=== PATIENT | female | born 1940 | race Caucasian/White ===

== ENCOUNTER 2022-08-24 09:10 | Inpatient (IN) | payer MEDICARE, OTHER, SELFPAY ==
[2022-08-24] VITALS (18 sets, daily range): BP systolic 102–178; BP diastolic 77–99; PULSE 98–127; RESP 17–24; TEMP 36.4–36.9; O2SAT 91–96; BMI 26.2; BMI 26.6
--- NOTE | 2022-08-24 09:44 | EKG12_ITS ---
Test Reason : SOB Blood Pressure : / mmHG Vent. Rate : 120 BPM Atrial Rate : 120 BPM P-R Int : 162 ms QRS Dur : 058 ms QT Int : 306 ms P-R-T Axes : 082 085 081 degrees QTc Int : 432 ms Somatic/Motion Artifact Sinus tachycardia Low voltage QRS Septal infarct , age undetermined, cannot be excluded Abnormal ECG Confirmed by DEVAN JIMENES, [place] ([id number]), editorial specialist MIYA MALCOLM ([id number]) on 08/26/2022 9:20:13 AM Referred By: Confirmed By:CHINA HARTMAN MD
[2022-08-24] MEDS: Albuterol 2.5 MG/3 ML VIAL.NEB. INHALATION (09:51)
[2022-08-24] MEDS: Ipratropium/Albuterol Sulfate 3 ML AMPUL.NEB INHALATION ×3 (09:51→23:47)
[2022-08-24 10:03] LABS: Absolute Lymphocyte Count 1.06 X10^3/uL (0.83-4.51); Absolute Neutrophil Count 5.2 X10^3/uL (2.0-7.7); Basophil# 0.03 X10^3/uL; Basophil% 0.4 % (0-1); Eosinophil# 0.23 X10^3/uL; Eosinophils% 3.2 % (0-5); Hematocrit 45.9 % (37-47); Hemoglobin 15.1 g/dL (12.0-15.0); Lymphocyte # 1.06 X10^3/ul (0.83-4.51); Lymphocyte % 14.7 % (19-41); Mean Corp Hgb Conc 32.9 g/dL (32-36); Mean Corpuscular Hgb 29.9 pg (27.0-32.0); Mean Corpuscular Volume 90.9 fL (81-99); Monocyte# 0.71 X10^3/uL; Monocyte% 9.8 % (0-10); NRBC Flagged by Analyzer 0 % (0-5); Neutrophil # 5.15 X10^3/uL (2.7-7.7); Neutrophil % 71.5 % (47-70); Platelet Count 149 K/mm3 (150-450); RBC Distribution Width CV 13.2 % (11.6-14.6); RBC Distribution Width SD 44.1 fl (35.1-43.9); Red Blood Count 5.05 M/mm3 (4.2-5.4); White Blood Count 7.2 K/mm3 (4.4-11.0)
--- NOTE | 2022-08-24 10:15 | RAD_ITS ---
HISTORY: dyspnea. TECHNIQUE: XR Chest 1 View. COMPARISON: None. FINDINGS: CARDIOMEDIASTINAL BORDERS: Cardiac silhouette within normal limits in size. Mediastinal contour unremarkable. LUNGS: Radiographically clear. Upper lobe lucency suggesting COPD. PLEURA: No pleural effusion or pneumothorax seen. OSSEOUS STRUCTURES: Mild thoracic dextrocurvature. RAD/Chest 1 View (Portable) IMPRESSION: No acute cardiopulmonary process identified. Electronically Signed: Nicole Holland MD at 10:24 EST ,
[2022-08-24 10:19] LABS: Partial Thromboplast Time 30.4 Seconds (24.1-36.2)
[2022-08-24 10:21] LABS: AST(SGOT) 19 U/L (15-37); Alanine Aminotransfer ALT/SGPT 26 U/L (13-56); Albumin, Serum 3.7 g/dL (3.2-5.0); Alkaline Phosphatase 61 U/L (45-117); Anion Gap 10 (5-15); BUN 13 mg/dL (7-18); BUN/Creat Ratio 18.8 RATIO (10-20); Chloride 102 mmol/L (98-107); Creatinine, Serum 0.69 mg/dL (0.55-1.02); EST Glomerular Filtration Rate 87 mL/min (>60); Est Glom Filt Rate - Afr Amer 105 mL/min (>60); Estimated Creatinine Clearance 40.38 ml/min; Globulin 3.6 g/dL (2.2-4.2); Glucose 165 mg/dL (74-106); Potassium 4.1 mmol/L (3.5-5.1); Protein, Total 7.3 g/dL (6.4-8.2); Sodium Level 139 mmol/L (136-145); Troponin-I HS 5 pg/mL (3.0-54.0)
[2022-08-24 10:36] LABS: Bacteria 0 SEEN /hpf (None Seen); Mucous, Urine 0 SEEN /hpf (<or=2+); Red Blood Cells-Urine 0 SEEN /hpf (0-5); Squamous Epithelial Cells - UA 0 SEEN /hpf (5-10); White Blood Cells 0 SEEN /hpf (0-5)
[2022-08-24 10:38] LABS: Color, Urine Yellow (Yellow); Glucose, Dipstick Normal (Normal); Ketone-Dipstick Negative (Negative); Leukocyte Esterase-Dipstick Negative /ul (Negative); Nitrite-Dipstick Negative (Negative); Occult Blood-Urine Negative /ul (Negative); Protein-Dipstick 15 mg/dl (Negative); Urine Bilirubin Dipstick Negative (Negative); Urine Clarity Clear (Clear); Urine Urobilinogen Normal (Normal)
[2022-08-24 10:41] LABS: Lactic Acid 1.4 mmol/L (0.4-1.9)
[2022-08-24 11:10] LABS: D-Dimer Quantitative (DVT/PE) 0.83 FEU/ug/m (0.27-0.49)
--- NOTE | 2022-08-24 11:13 | CT_ITS ---
STUDY: CTA CHEST REASON FOR EXAM: Female, 81 years old. Hypoxic respiratory failure RADIATION DOSAGE (If Supplied By Facility): CTDIvol = ( 9.54 ) mGy, DLP = ( 414.63 ) mGycm TECHNIQUE: The examination was performed with the intravenous administration of IV 100mL Isovue-370. Post-processing of the angiographic images was performed, with multiplanar reformation and 3D reconstruction. Individualized dose optimization techniques were used for this CT. COMPARISON: Comparison is made with prior chest radiograph done earlier today. FINDINGS: Normal enhancement of the main pulmonary artery and right and left pulmonary arteries. Normal enhancement of the bilateral peripheral pulmonary arteries. There is no demonstrated pulmonary embolism. Normal thoracic aorta and visualized great vessels. There is no demonstrated aortic dissection. Normal heart and pericardium. There are visualized mediastinal lymph nodes, which are within normal size limits, and with normal morphology. Normal hilar regions. Normal visualized trachea and bronchi. Hyperinflation. Bronchiectasis in the lower lobes with evidence of bibasilar scarring more prominent on the right side. Emphysematous changes more pronounced in the upper lobes. Focal nodular infiltrate in the peripheral lateral aspect of the left lower lobe best seen on axial image #128 and coronal image #176. Normal pleura. Normal chest wall structures. There are degenerative changes of thoracic spine. Gallstones. There is a 1.5 cm x 1.4 cm hypodense nodule in the left adrenal gland suggestive of a small left adrenal adenoma. CT/CTA Chest W/WO Contrast IMPRESSION: No evidence of pulmonary embolism. Hyperinflation with scarring and bronchiectasis. Electronically Signed: Nghia Atkins MD at 12:21 EST ,
--- NOTE | 2022-08-24 11:16 | EDS_ITS ---
HPI HPI - URI History of Present Illness Chief Complaint: Shortness of Breath Narrative Narrative: 81-year-old female with cough, fever, chills x3 days COPD. She has an albuterol inhaler at home but does not seem to be helping. She was seen in urgent care where her pulse ox was low at 88. On arrival today it was 87 on room air. She does not typically wear oxygen. She does feel as if she is wheezing. She denies chest pain. She is not had any nausea or vomiting. No diarrhea or constipation. ROS ROS ED Constitutional Constitutional ED: Reports chills and fever(s) Eyes Eyes: Denies change in vision or diplopia ENT ENT ED: Reports rhinorrhea Cardiovascular Cardiovascular: Denies chest pain Respiratory/Chest Respiratory/Chest: Reports cough, dyspnea and dyspnea on exertion Gastrointestinal Gastrointestinal: Denies abdominal pain, nausea or vomiting Genitourinary Genitourinary ED: Denies dysuria or hematuria Musculoskeletal Musculoskeletal: Reports myalgias; Denies arthralgias Integumentary Denies abscess or Abrasions Neurologic Neurologic: Denies headache(s) or paresthesias Psychiatric Psychiatric: Denies anxiety or depression PFSH PFS Home Medications atorvastatin 20 mg tablet 20 mg PO DAILY 08/24/22 [History Last Taken Unknown] cinacalcet 30 mg tablet 30 mg PO DAILY 08/24/22 [History Last Taken Unknown] levothyroxine 25 mcg tablet 25 mcg PO DAILY 08/24/22 [History Last Taken Unkn own] metformin 500 mg tablet 500 mg PO DAILY 08/24/22 [History Last Taken Unknown] Allergy/AdvReac Type Severity Reaction Status Date / Time No Known Allergies Allergy Verified 08/24/22 09:12 Social History Smoking Status: Former smoker EXAM Physical Exam Const Vital Signs: 08/24/22 09:11 08/24/22 09:41 08/24/22 09:49 Temperature 97.6 F L Temperature Source Temporal Pulse Rate 127 H Respiratory Rate 20 H Respiratory Effort Short of Breath Respiratory Depth Deep Respiratory Pattern Hyperpnea Blood Pressure 178/99 H Blood Pressure Mean 125 Pulse Ox 91 93 Oxygen Delivery Method Room Air Nasal Cannula Oxygen Flow Rate (L/min) 2 08/24/22 09:51 08/24/22 10:32 08/24/22 11:49 Temperature Temperature Source Pulse Rate 120 H 120 H 111 H Respiratory Rate 20 H 24 H 19 H Respiratory Effort Respiratory Depth Respiratory Pattern Normal Blood Pressure 102/77 Blood Pressure Mean 85 Pulse Ox 95 92 Oxygen Delivery Method Nasal Cannula Nasal Cannula Oxygen Flow Rate (L/min) 2 2 08/24/22 12:06 Temperature Temperature Source Pulse Rate 109 H Respiratory Rate 19 H Respiratory Effort Respiratory Depth Respiratory Pattern Blood Pressure 110/79 Blood Pressure Mean 89 Pulse Ox 93 Oxygen Delivery Method Nasal Cannula Oxygen Flow Rate (L/min) 2 Positive well nourished General Appearance ED: NAD; Negative for pallor HEENT Reports moist mucous membranes normocephalic and atraumatic Throat: posterior oropharynx normal Eyes PERRL General Eye ED: Negative for pale conjunctiva or scleral icterus Neck no lymphadenopathy, supple and no meningeal signs Resp Resp Narrative: Tachypneic. Audibly wheezing from across the room. Diffusely wheezing to all lung lai on examination. Cardio Rate: tachycardic Rhythm: regular rhythm GI non-tender Neuro oriented x3 and CN's II-XII intact bilaterally Sensorium / Orientation: alert Psych mental status grossly normal Skin General Skin Exam: Negative for jaundice or pallor MDM MDM MDM Narrative Medical decision making narrative: Patient presenting tachycardic, tachypneic, hypoxic. Septic work-up was pursued. Patient was pancultured. EKG was obtained and on my interpretation shows sinus tachycardia with a ventricular rate of 120 bpm without sign of ischemic change. Chest x-ray on my interpretation shows no acute cardiopulmonary process. Radiology interpreted this and agrees. CBC shows a normal white blood cell count of 7.2. Hemoglobin stable at 13.1, platelets low 149 and the last comparison I have this is 2011 when her platelets were 200. Renal function and electrolytes appear to be within normal limits. Glucose is slightly elevated at 165 without anion gap. LFTs are normal. High-sensitivity troponin is 5. Lactic acid 1.4 and therefore within normal limits. Patient's D-dimer was elevated today at 0.83. CTA of the chest does not show any PE or dissection. The radiologist does states that there is a focal nodular infiltrate in the peripheral lateral aspect of the left lower lobe. Rapid COVID and rapid influenza are negative. Patient was ambulated on room air after her breathing treatments and still dropped to 83%. She was placed on 2 L. She is currently 96% on room air in no distress. Patient's heart rate has come down from 127-100 with IV fluids. Since there is an area of infiltrate on the CT I will treat her with Rocephin azithromycin. Discussed with hospitalist for admission. Impression: 1. Pneumonia 2. Hypoxia 3. COPD exacerbation 4. Tachycardia?resolved Lab Data Attestation: I reviewed the patient's lab results. Labs: Laboratory Results - last 24 hr 08/24/22 08/24/22 08/24/22 09:30 09:30 09:30 WBC 7.2 RBC 5.05 Hgb 15.1 H Hct 45.9 MCV 90.9 MCH 29.9 MCHC 32.9 RDW Std Deviation 44.1 H RDW Coeff of Prerna 13.2 Plt Count 149 L MPV 10.0 Immature Gran % (Auto) 0.400 Neut % (Auto) 71.5 H Lymph % (Auto) 14.7 L [place] % (Auto) 9.8 Eos % (Auto) 3.2 Baso % (Auto) 0.4 Absolute Neuts (auto) 5.2 Absolute Lymphs (auto) 1.06 Nucleated RBC % 0 PT 13.0 INR 1.0 APTT 30.4 D-Dimer Quant (PE/DVT) Sodium 139 Potassium 4.1 Chloride 102 Carbon Dioxide 27.0 Anion Gap 10 BUN 13 Creatinine 0.69 Estim Creat Clear Calc 40.38 Est GFR (MDRD) Af Amer 105 Est GFR (MDRD) Non-Af 87 BUN/Creatinine Ratio 18.8 Glucose 165 H Lactic Acid Calcium 10.0 Total Bilirubin 0.90 AST 19 ALT 26 Alkaline Phosphatase 61 Troponin I High Sens 5 Total Protein 7.3 Albumin 3.7 Globulin 3.6 Albumin/Globulin Ratio 1.0 Urine Color Urine Clarity Urine pH Ur Specific [place] Urine Protein Urine Glucose (UA) Urine Ketones Urine Occult Blood Urine Nitrite Urine Bilirubin Urine Urobilinogen Ur Leukocyte Esterase Urine RBC Urine WBC Ur Squamous Epith Cells Urine Bacteria Urine Mucus 08/24/22 08/24/22 08/24/22 09:30 09:55 10:30 WBC RBC Hgb Hct MCV MCH MCHC RDW Std Deviation RDW Coeff of Prerna Plt Count MPV Immature Gran % (Auto) Neut % (Auto) Lymph % (Auto) [place] % (Auto) Eos % (Auto) Baso % (Auto) Absolute Neuts (auto) Absolute Lymphs (auto) Nucleated RBC % PT INR APTT D-Dimer Quant (PE/DVT) 0.83 H* Sodium Potassium Chloride Carbon Dioxide Anion Gap BUN Creatinine Estim Creat Clear Calc Est GFR (MDRD) Af Amer Est GFR (MDRD) Non-Af BUN/Creatinine Ratio Glucose Lactic Acid 1.4 Calcium Total Bilirubin AST ALT Alkaline Phosphatase Troponin I High Sens Total Protein Albumin Globulin Albumin/Globulin Ratio Urine Color Yellow Urine Clarity Clear Urine pH 5.0 Ur Specific [place] 1.030 Urine Protein 15 H Urine Glucose (UA) Normal Urine Ketones Negative Urine Occult Blood Negative Urine Nitrite Negative Urine Bilirubin Negative Urine Urobilinogen Normal Ur Leukocyte Esterase Negative Urine RBC 0 SEEN Urine WBC 0 SEEN Ur Squamous Epith Cells 0 SEEN Urine Bacteria 0 SEEN Urine Mucus 0 SEEN Radiography Diagnostic Testing: Clinical Impression(s) from Imaging Studies Chest X-Ray 08/24/22 10:15 IMPRESSION: No acute cardiopulmonary process identified. Electronically Signed: Nicole Holland MD at 10:24 EST , Chest CTA 08/24/22 11:13 IMPRESSION: No evidence of pulmonary embolism. Hyperinflation with scarring and bronchiectasis. Electronically Signed: Nghia Atkins MD at 12:21 EST , Discharge Plan Triage Chief Complaint: Shortness of Breath ED Provider: Melo Lee Dx/Rx/DC Orders Prescriptions: No Action metformin 500 mg tablet 500 mg PO DAILY Label Comments: Take 1 tablet by mouth daily with breakfast. atorvastatin 20 mg tablet 20 mg PO DAILY Label Comments: Take 1 tablet by mouth once daily. For cholesterol. levothyroxine 25 mcg tablet 25 mcg PO DAILY Label Comments: TAKE 1 TABLET BY MOUTH DAILY ON AN EMPTY STOMACH FOR THYROID cinacalcet 30 mg tablet 30 mg PO DAILY Label Comments: Take 1 tablet by mouth once daily. Primary Care Provider: Higinio Salazar Referrals: Higinio Salazar MD [Primary Care Provider] -
[2022-08-24] MEDS: 0.9% Normal Saline 1,000 ML 999 ML IV (11:42)
--- NOTE | 2022-08-24 12:59 | HP.PCM.HOS_ITS ---
HPI - General General Date of Admission: 08/24/22 Date of Service: 08/24/22 Chief Complaint: Worsening shortness of breath, cough and chest tightness for 2 days HPI Narrative XANDER SORTO, is a 81 F with history of COPD came to ED for worsening shortness of breath along with chest tightness and cough for 2 days. She said it is started with cough and shortness of breath and is getting worse. She is not able to bring up much phlegm. She also has chest tightness, nasal congestion and postnasal drip. She denies chest pressure or pain. No fever or chills. In ED, patient was tachycardic, tachypneic and hypertensive. Patient blood pressure was 178/99. After breathing treatment, her shortness of breath was little better. She is not hypoxic. Patient not on home oxygen BiPAP or any noninvasive positive pressure ventilator. Chest x-ray and CTPA was individually reviewed. It shows mild focal nodular infiltrate in left lower lobe. Bronchiectasis in lower lobes with bibasilar scarring right more than left. Patient also has diffuse emphysema predominantly in upper lobes. Twelve-lead EKG individually reviewed and shows sinus tachycardia with fusion complexes 120 beats minute. QTc 432 ms. Patient was given breathing treatment and IV antibiotics and further admitted. [facility] Medical History (Updated 08/24/22 @ 16:[address] Edinson Duran MD) COPD (chronic obstructive pulmonary disease) Diabetes History of fracture of left ankle Home Medications albuterol sulfate 90 mcg/actuation aerosol inhaler 2 puff inhalation Q4H PRN SOB 08/24/22 [History Last Taken 08/24/22] atorvastatin 20 mg tablet 20 mg PO DAILY 08/24/22 [History Last Taken 08/24/22] cholecalciferol (vitamin D3) 25 mcg (1,000 unit) capsule 25 mcg PO DAILY SUPPLEMENT 08/24/22 [History Last Taken 08/24/22] cinacalcet 30 mg tablet 30 mg PO DAILY 08/24/22 [History Last Taken 08/24/22] clobetasol 0.05 % topical cream 1 applic topical BID PRN Rash 08/24/22 [History Last Taken 1 Week Ago ~08/17/22] metformin 500 mg tablet 500 mg PO DAILY 08/24/22 [History Last Taken 08/24/22] multivitamin 1 tab PO DAILY SUPPLEMENT 08/24/22 [History Last Taken 08/24/22] naproxen sodium 220 mg capsule 440 mg PO DAILY PRN Pain 08/24/22 [History Last Taken 08/24/22] Allergy/AdvReac Type Severity Reaction Status Date / Time No Known Allergies Allergy Verified 08/24/22 09:12 Social History Smoking Status: Former smoker ROS ROS Narrative Constitutional: Reports fatigue and weakness. Severe cough. HEENT: URI symptoms admission HPI. Reports systems reviewed and no addt'l complaints, except as documented Respiratory/Chest: As mentioned in HPI Gastrointestinal: Denies coffee ground emesis, hematemesis or vomiting Genitourinary: Denies burning urination or new urinary tract symptoms Musculoskeletal: Denies new joint pain and limited range of motion Neurologic: Denies seizure-like activity. No focal strokelike symptoms. skin: No ulcer. No rash Endocrinology: DM type II. Reports systems reviewed and no addt'l complaints, except as documented Hematologic/Lymphatic: Denies history of DVT/PE. Reports systems reviewed and no addt'l complaints, except as documented Rest 14 ROS are negative except as mentioned in HPI Vital Signs Vital Signs Vital Signs: 08/24/22 09:11 08/24/22 09:41 08/24/22 09:49 Temperature 97.6 F L Temperature Source Temporal Pulse Rate 127 H Respiratory Rate 20 H Respiratory Effort Short of Breath Respiratory Depth Deep Respiratory Pattern Hyperpnea Blood Pressure 178/99 H Blood Pressure Mean 125 Pulse Ox 91 93 Oxygen Delivery Method Room Air Nasal Cannula Oxygen Flow Rate (L/min) 2 08/24/22 09:51 08/24/22 10:32 08/24/22 11:49 Temperature Temperature Source Pulse Rate 120 H 120 H 111 H Respiratory Rate 20 H 24 H 19 H Respiratory Effort Respiratory Depth Respiratory Pattern Normal Blood Pressure 102/77 Blood Pressure Mean 85 Pulse Ox 95 92 Oxygen Delivery Method Nasal Cannula Nasal Cannula Oxygen Flow Rate (L/min) 2 2 08/24/22 12:06 Temperature Temperature Source Pulse Rate 109 H Respiratory Rate 19 H Respiratory Effort Respiratory Depth Respiratory Pattern Blood Pressure 110/79 Blood Pressure Mean 89 Pulse Ox 93 Oxygen Delivery Method Nasal Cannula Oxygen Flow Rate (L/min) 2 Weight Weight: 158 lb Body Mass Index (BMI) 26.2 Physical Exam Narrative Physical exam General: Alert, Oriented x3, Cooperative HEENT: Atraumatic, PERRLA, EOMI, Normocephalic Oral: Oral mucosa moist. No Gingival or Mucosal Lesions/ Ulcerations Neck: Supple, No JVD, Negative Carotid Bruits Lungs: Air entry severely diminished in both lungs. Bilateral bronchial breathing. Bilateral expiratory rhonchi, tachypnea present. Cardiovascular: Sinus tachycardia, Normal S1, Normal S2, No murmurs Abdomen: Bowel Sounds Present, Soft, Non Tender, Non-Distended : No renal angle tenderness. No suprapubic tenderness. Extremities: No edema, Capillary Refill Less than 3 Seconds Skin: No rashes, No breakdown Musculoskeletal: No Tenderness to Palpation of Joints or Extremities. 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 Neurological: Cranial nerves II-XII grossly intact, DTR 2+/4 and Symmetrical, muscle strength 4+/5 at major joints Psych/Mental Status: Flat affect. Results Lab / Micro Data Result Diagrams: 08/24/22 09:30 08/24/22 09:30 Labs: Laboratory Results - last 24 hr 08/24/22 09:30: WBC 7.2, RBC 5.05, Hgb 15.1 H, Hct 45.9, MCV 90.9, MCH 29.9, MCHC 32.9, RDW Std Deviation 44.1 H, RDW Coeff of Prerna 13.2, Plt Count 149 L, MPV 10.0, Immature Gran % (Auto) 0.400, Neut % (Auto) 71.5 H, Lymph % (Auto) 14.7 L, [place] % (Auto) 9.8, Eos % (Auto) 3.2, Baso % (Auto) 0.4, Absolute Neuts (auto) 5.2, Absolute Lymphs (auto) 1.06, Nucleated RBC % 0 08/24/22 09:30: PT 13.0, INR 1.0, APTT 30.4 08/24/22 09:30: Sodium 139, Potassium 4.1, Chloride 102, Carbon Dioxide 27.0, Anion Gap 10, BUN 13, Creatinine 0.69, Estim Creat Clear Calc 40.38, Est GFR (M DRD) Af Amer 105, Est GFR (MDRD) Non-Af 87, BUN/Creatinine Ratio 18.8, Glucose 165 H, Calcium 10.0, Total Bilirubin 0.90, AST 19, ALT 26, Alkaline Phosphatase 61, Troponin I High Sens 5, Total Protein 7.3, Albumin 3.7, Globulin 3.6, Albumin/Globulin Ratio 1.0 08/24/22 09:30: D-Dimer Quant (PE/DVT) 0.83 H* 08/24/22 09:55: Lactic Acid 1.4 08/24/22 10:30: Urine Color Yellow, Urine Clarity Clear, Urine pH 5.0, Ur Specific [place] 1.030, Urine Protein 15 H, Urine Glucose (UA) Normal, Urine Ketones Negative, Urine Occult Blood Negative, Urine Nitrite Negative, Urine Bilirubin Negative, Urine Urobilinogen Normal, Ur Leukocyte Esterase Negative, Urine RBC 0 SEEN, Urine WBC 0 SEEN, Ur Squamous Epith Cells 0 SEEN, Urine Bacteria 0 SEEN, Urine Mucus 0 SEEN Micro: Microbiology 08/24/22 09:51 Nasal Secretion SARS-CoV-2 & FLU Antigen (Rapid) - Final Radiology Impression Chest X-Ray 08/24/22 10:15 IMPRESSION: No acute cardiopulmonary process identified. Electronically Signed: Nicole Holland MD at 10:24 EST , Chest CTA 08/24/22 11:13 IMPRESSION: No evidence of pulmonary embolism. Hyperinflation with scarring and bronchiectasis. Electronically Signed: Nghia Atkins MD at 12:21 EST , Assessment & Plan Assessment/Plan (1) COPD exacerbation: PLAN: Plan This 81-year-old female with history of chronic smoking and COPD is being admitted for worsening of shortness of breath cough and chest tightness with h istory of COPD exacerbation. 1. COPD exacerbation: Patient is being admitted on MedSurg. On bronchodilator DuoNeb, IV Solu-Medrol, Mucinex, incentive spirometry and Pep. Oxygen therapy as needed to keep pulse ox 90%. 2. Suspected left lower lobe pneumonia with bronchiectasis and emphysematous c hanges in CT chest: Chest CTA rules out PE. Patient is started smoking in teenage, [age] and quit quit 20 years ago therefore had greater than 40 pack years of smoking. Pneumonia work-up ordered including respiratory panel and blood culture. Patient had 4 doses of COVID-vaccine and influenza vaccine. Denies COPD exacerbation in the last 10 years. Denies prior history of COVID infection 3. Diabetes mellitus type 2: On metformin at home. Hold metformin. Accu-Chek before meals and cover with Humalog sliding scale. Glucose might go high on IV Solu-Medrol. 4. 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 2D echo is ordered. Patient history of fracture of left ankle in the past. VTE prophylaxis: Lovenox 40 mg subcu daily. Living will/advanced directive/end of life care: Patient does have living will or advanced directive. Her daughter is power of consumer attorney for health. After discussion of benefits/risks procedures involved with full code, DNR CC arrest and DNR CC, the patient opted for DNRCC arrest with no intubation Patient does not want artificial life support including intubation, tube feed, ventilator and/chest compression, central venous catheter, vasopressor and DC shock if needed Total time spent in [id number] encounter in discussion of advanced directive 16 minutes. Total time of the visit including total time spent in counseling or coordination of care, (more than 50% of the total time, spent in obtaining medical information from nurses and other ancillary care providers,explaining to the patient about labs, imaging, diagnosis and management of active complex medical conditions), EKG, review of labs and imaging is 60 minutes. Clinical Impression(s) from Imaging Studies Chest X-Ray 08/24/22 10:15 IMPRESSION: No acute cardiopulmonary process identified. Electronically Signed: Nicole Holland MD at 10:24 EST , Chest CTA 08/24/22 11:13 IMPRESSION: No evidence of pulmonary embolism. Hyperinflation with scarring and bronchiectasis. Electronically Signed: Nghia Atkins MD at 12:21 EST , Charges/Coding Visit Charges Inpatient E&M: 10864 Init Hosp L2
[2022-08-24] MEDS: Ceftriaxone 1 GM/50 ML BAG IV (13:27)
[2022-08-24 13:41] LABS: Magnesium 1.8 mg/dL (1.6-2.6); Phosphorus 3.1 mg/dL (2.5-4.9)
[2022-08-24] MEDS: Enoxaparin 40 MG/0.4 ML Syringe SC (14:35)
[2022-08-24] MEDS: guaiFENesin 1,200 MG Tablet 1200 MG PO ×2 (15:21→21:48)
--- NOTE | 2022-08-24 17:07 | NURSING ---
This RN is aware of Mary Jane Mejía's vitals that were taken this afternoon.
[2022-08-24 18:05] LABS: Bedside Glucose 175 mg/dL (74-106)
[2022-08-24] MEDS: Acetaminophen 325 MG Tablet 650 MG PO (21:48)
[2022-08-24] MEDS: Insulin Lispro 100 UNIT/ML INSULN.PEN SC (21:58)
[2022-08-25] VITALS (15 sets, daily range): BP systolic 131–154; BP diastolic 70–88; PULSE 84–116; RESP 16–24; TEMP 36.6–36.8; O2SAT 84–94
[2022-08-25 01:31] LABS: Bedside Glucose 308 mg/dL (74-106)
--- NOTE | 2022-08-25 05:15 | CASEMGMT ---
MICHELLE AU [place] Planning Assessment: Face to Face with patient for initial transition planning/care coordination assessment. Pt alert, sitting up in bed visiting with neighbor at bedside. Pt agreeable to participating in assessment and permission given to speak in front of visitor. MICHELLE AU introduced self and role at [facility], pt voiced understanding. Care providers, insurance benefits, and demographics verified. Admission dx: COPD exacerbation PCP: Dr. Salazar Specialists: throat specialist at [facility] Preferred Pharmacy: [facility] Insurance: [facility] A/B, [facility] Prescription Benefit: Yes Living Will/HPOA: yes, yes-HPOA Daughter Leigh Ann Story LNOK: spouse Marco daughter Leigh Ann Living Arrangements: Pt lives with her spouse in a two story home with a first floor set up with 0 steps to enter. Pt has been independent with all ADLs including cooking and household tasks. Pt's spouse is able to assist if needed. Transportation: Pt drives and pt's spouse drives if needed. DME/SNF/HHC: None Plan: Pt plans to return home with the support of her spouse at discharge. Discussed possible need for home O2 at [place]. Reviewed home O2 providers and pt states her preferred provider is [facility] if needed. Will continue to monitor and assist with home O2 set up if determined to be needed. Donn Jha RN CM
[2022-08-25 06:09] LABS: Absolute Lymphocyte Count 0.81 X10^3/uL (0.83-4.51); Absolute Neutrophil Count 5.3 X10^3/uL (2.0-7.7); Basophil# 0.01 X10^3/uL; Basophil% 0.2 % (0-1); Hematocrit 44.4 % (37-47); Hemoglobin 14.1 g/dL (12.0-15.0); Lymphocyte # 0.81 X10^3/ul (0.83-4.51); Mean Corp Hgb Conc 31.8 g/dL (32-36); Mean Corpuscular Hgb 29.3 pg (27.0-32.0); Mean Corpuscular Volume 92.1 fL (81-99); Mean Platelet Vol. 9.8 fl (6.2-12.0); Monocyte# 0.13 X10^3/uL; Monocyte% 2.1 % (0-10); NRBC Flagged by Analyzer 0 % (0-5); Neutrophil # 5.26 X10^3/uL (2.7-7.7); Neutrophil % 84.4 % (47-70); Platelet Count 151 K/mm3 (150-450); RBC Distribution Width CV 13.1 % (11.6-14.6); RBC Distribution Width SD 44.4 fl (35.1-43.9); Red Blood Count 4.82 M/mm3 (4.2-5.4); White Blood Count 6.2 K/mm3 (4.4-11.0)
[2022-08-25 06:32] LABS: Anion Gap 4 (5-15); BUN 17 mg/dL (7-18); BUN/Creat Ratio 29.7 RATIO (10-20); Calcium,Total 9.8 mg/dL (8.5-10.1); Chloride 108 mmol/L (98-107); Creatinine, Serum 0.57 mg/dL (0.55-1.02); EST Glomerular Filtration Rate 108 mL/min (>60); Est Glom Filt Rate - Afr Amer 131 mL/min (>60); Estimated Creatinine Clearance 40.38 ml/min; Glucose 224 mg/dL (74-106); Sodium Level 139 mmol/L (136-145)
[2022-08-25] MEDS: Insulin Lispro 100 UNIT/ML INSULN.PEN SC ×4 (06:35→21:31)
[2022-08-25 07:05] LABS: Bedside Glucose 207 mg/dL (74-106)
[2022-08-25] MEDS: Ipratropium/Albuterol Sulfate 3 ML AMPUL.NEB INHALATION ×5 (07:33→23:21)
--- NOTE | 2022-08-25 08:02 | PN.HOSP_ITS ---
Subjective Subjective Feeling better. Breathing better. Not on oxygen at home. Objective Data Objective Data Vital Signs: Vital Signs Temp Pulse Resp BP Pulse Ox O2 Del Method O2 Flow Rate 36.8 C 90 24 H 131/88 H 92 Nasal Cannula 2.5 08/25/22 05:52 08/25/22 07:33 08/25/22 07:38 08/25/22 05:52 08/25/22 07:38 08/25/22 07:38 08/25/22 07:38 Oxygen Flow Rate (L/min) 2.5 Oxygen Delivery Method Nasal Cannula Weight: 71.1 kg Body Mass Index (BMI) 26.6 Intake & Output: Intake and Output for Last 24 Hours 08/23/22 08/24/22 08/25/22 23:59 23:59 23:59 Intake Total 1455 / 1455 Balance 1455 / 1455 Lab / Micro Data Result Diagrams: 08/25/22 05:44 08/25/22 05:44 Labs: Laboratory Results - last 24 hr 08/24/22 09:30: WBC 7.2, RBC 5.05, Hgb 15.1 H, Hct 45.9, MCV 90.9, MCH 29.9, MCHC 32.9, RDW Std Deviation 44.1 H, RDW Coeff of Prerna 13.2, Plt Count 149 L, MPV 10.0, Immature Gran % (Auto) 0.400, Neut % (Auto) 71.5 H, Lymph % (Auto) 14.7 L, [place] % (Auto) 9.8, Eos % (Auto) 3.2, Baso % (Auto) 0.4, Absolute Neuts (auto) 5.2, Absolute Lymphs (auto) 1.06, Nucleated RBC % 0 08/24/22 09:30: PT 13.0, INR 1.0, APTT 30.4 08/24/22 09:30: Sodium 139, Potassium 4.1, Chloride 102, Carbon Dioxide 27.0, Anion Gap 10, BUN 13, Creatinine 0.69, Estim Creat Clear Calc 40.38, Est GFR (MDRD) Af Amer 105, Est GFR (MDRD) Non-Af 87, BUN/Creatinine Ratio 18.8, Glucose 165 H, Calcium 10.0, Total Bilirubin 0.90, AST 19, ALT 26, Alkaline Phosphatase 61, Troponin I High Sens 5, Total Protein 7.3, Albumin 3.7, Globulin 3.6, Albumin/Globulin Ratio 1.0 08/24/22 09:30: D-Dimer Quant (PE/DVT) 0.83 H* 08/24/22 09:30: Phosphorus 3.1, Magnesium 1.8 08/24/22 09:55: Lactic Acid 1.4 08/24/22 10:30: Urine Color Yellow, Urine Clarity Clear, Urine pH 5.0, Ur Specific [place] 1.030, Urine Protein 15 H, Urine Glucose (UA) Normal, Urine Ketones Negative, Urine Occult Blood Negative, Urine Nitrite Negative, Urine Bilirubin Negative, Urine Urobilinogen Normal, Ur Leukocyte Esterase Negative, Urine RBC 0 SEEN, Urine WBC 0 SEEN, Ur Squamous Epith Cells 0 SEEN, Urine Bacteria 0 SEEN, Urine Mucus 0 SEEN 08/24/22 13:25: COVID-19 ([facility]) Not Detected 08/24/22 17:36: POC Glucose 175 H 08/24/22 21:55: POC Glucose 308 H 08/25/22 05:44: WBC 6.2, RBC 4.82, Hgb 14.1, Hct 44.4, MCV 92.1, MCH 29.3, MCHC 31.8 L, RDW Std Deviation 44.4 H, RDW Coeff of Prerna 13.1, Plt Count 151, MPV 9.8, Immature Gran % (Auto) 0.300, Neut % (Auto) 84.4 H, Lymph % (Auto) 13.0 L, Stokes % (Auto) 2.1, Eos % (Auto) 0.0, Baso % (Auto) 0.2, Absolute Neuts (auto) 5.3, Absolute Lymphs (auto) 0.81 L, Nucleated RBC % 0 08/25/22 05:44: Sodium 139, Potassium 4.0, Chloride 108 H, Carbon Dioxide 27.0, Anion Gap 4 L, BUN 17, Creatinine 0.57, Estim Creat Clear Calc 40.38, Est GFR (MDRD) Af Amer 131, Est GFR (MDRD) Non-Af 108, BUN/Creatinine Ratio 29.7 H, Glucose 224 H, Calcium 9.8 08/25/22 06:32: POC Glucose 207 H Micro: Microbiology 08/24/22 14:51 Mucosa - Nasopharyngeal Respiratory Panel (PCR) - Final 08/24/22 10:30 Urine, Clean Catch Legionella Antigen - Final 08/24/22 10:30 Urine, Clean Catch Streptococcus pneumoniae Antigen (M - Final 08/24/22 09:51 Nasal Secretion SARS-CoV-2 & FLU Antigen (Rapid) - Final Radiography Diagnostic Testing: Radiology Impression Chest X-Ray 08/24/22 10:15 IMPRESSION: No acute cardiopulmonary process identified. Electronically Signed: Nicole Holland MD at 10:24 EST , Chest CTA 08/24/22 11:13 IMPRESSION: No evidence of pulmonary embolism. Hyperinflation with scarring and bronchiectasis. Electronically Signed: Nghia Atkins MD at 12:21 EST , Physical Exam Const alert and no apparent distress Resp normal respiratory effort, no retractions, no use of accessory muscles and clear to auscultation bilaterally Cardio regular rate, regular rhythm, S1 normal heart sound and S2 normal heart sound GI normal to inspection, nondistended, normoactive bowel sounds, soft to palpation and non-tender Neuro Sensorium / Orientation: awake and alert Psych affect normal Assessment & Plan Assessment/Plan (1) COPD exacerbation: PLAN: May be exacerbated due to pneumonia Continue with dilators as well as methylprednisolone (2) Pneumonia: PLAN: Left upper lobe pneumonia on CAT scan. Did not appreciate a left lower lobe pneumonia. COVID-19, influenza, respiratory panel, Legionella Streptococcus antigens negative Continue with ceftriaxone and azithromycin. PLAN: Plan Chronic stable conditions: * Diabetes mellitus type 2: On metformin at home. Hold metformin. Accu-Chek before meals and cover with Humalog sliding scale. Glucose might go high on IV Solu-Medrol. 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 2D echo is ordered. Patient history of fracture of left ankle in the past. VTE prophylaxis: Lovenox 40 mg subcu daily. Living will/advanced directive/end of life care: DNRCC arrest with no intubation. Patient does not want artificial life support including intubation, tube feed, ventilator and/chest compression, central venous catheter, vasop ressor and DC shock if needed Charges/Coding Visit Charges Inpatient E&M: 03243 Subs Hosp L2
[2022-08-25] MEDS: Multivitamins,Therapeutic Tablet 1 TABLET PO (08:32)
[2022-08-25] MEDS: Cinacalcet HCl 30 MG Tablet PO (08:32)
[2022-08-25] MEDS: guaiFENesin 1,200 MG Tablet 1200 MG PO ×2 (08:32→21:31)
[2022-08-25] MEDS: Cholecalciferol (VIT D3) 25 MCG TABLET (1,000 UNITS) PO (08:32)
[2022-08-25] MEDS: Enoxaparin 40 MG/0.4 ML Syringe SC (08:33)
[2022-08-25] MEDS: Atorvastatin Calcium 20 MG Tablet PO (08:39)
[2022-08-25] MEDS: 0.9% Saline Lock 10 ML Syringe IV ×2 (08:43→13:57)
[2022-08-25 12:56] LABS: Bedside Glucose 400 mg/dL (74-106)
[2022-08-25 16:25] LABS: Bedside Glucose 242 mg/dL (74-106)
[2022-08-26] VITALS (9 sets, daily range): BP systolic 125–155; BP diastolic 66–88; PULSE 83–111; RESP 16–21; TEMP 36.5–36.9; O2SAT 84–99
[2022-08-26 00:25] LABS: Bedside Glucose 216 mg/dL (74-106)
[2022-08-26] MEDS: Ipratropium/Albuterol Sulfate 3 ML AMPUL.NEB INHALATION ×3 (02:27→10:59)
[2022-08-26 07:03] LABS: Absolute Lymphocyte Count 1.66 X10^3/uL (0.83-4.51); Absolute Neutrophil Count 10.9 X10^3/uL (2.0-7.7); Basophil# 0.03 X10^3/uL; Basophil% 0.2 % (0-1); Hematocrit 42.5 % (37-47); Hemoglobin 13.5 g/dL (12.0-15.0); Lymphocyte # 1.66 X10^3/ul (0.83-4.51); Lymphocyte % 12.3 % (19-41); Mean Corp Hgb Conc 31.8 g/dL (32-36); Mean Corpuscular Hgb 29.3 pg (27.0-32.0); Mean Corpuscular Volume 92.2 fL (81-99); Mean Platelet Vol. 9.7 fl (6.2-12.0); Monocyte# 0.78 X10^3/uL; Monocyte% 5.8 % (0-10); NRBC Flagged by Analyzer 0 % (0-5); Neutrophil # 10.91 X10^3/uL (2.7-7.7); Neutrophil % 81.2 % (47-70); Platelet Count 165 K/mm3 (150-450); RBC Distribution Width CV 13.2 % (11.6-14.6); RBC Distribution Width SD 44.8 fl (35.1-43.9); Red Blood Count 4.61 M/mm3 (4.2-5.4); White Blood Count 13.5 K/mm3 (4.4-11.0)
[2022-08-26 07:10] LABS: Bedside Glucose 141 mg/dL (74-106)
[2022-08-26 07:30] LABS: Anion Gap 4 (5-15); BUN 16 mg/dL (7-18); BUN/Creat Ratio 30.1 RATIO (10-20); Calcium,Total 9.7 mg/dL (8.5-10.1); Chloride 109 mmol/L (98-107); Creatinine, Serum 0.53 mg/dL (0.55-1.02); EST Glomerular Filtration Rate 118 mL/min (>60); Est Glom Filt Rate - Afr Amer 142 mL/min (>60); Estimated Creatinine Clearance 40.38 ml/min; Glucose 163 mg/dL (74-106); Sodium Level 142 mmol/L (136-145)
[2022-08-26 07:57] LABS: Hemoglobin A1c 6.7 % (3.8-5.6)
--- NOTE | 2022-08-26 08:10 | PN.HOSP_ITS ---
Subjective Subjective Feeling well. Anxious to go home. Objective Data Objective Data Vital Signs: Vital Signs Temp Pulse Resp BP Pulse Ox O2 Del Method O2 Flow Rate 36.9 C 89 21 H 149/88 H 93 Nasal Cannula 2 08/26/22 05:55 08/26/22 07:37 08/26/22 07:37 08/26/22 05:55 08/26/22 07:37 08/26/22 07:54 08/26/22 07:54 Oxygen Flow Rate (L/min) [ 3 AMBULATING with Oxygen #2] Oxygen Flow Rate (L/min) [ 2 AMBULATING with Oxygen #1] Oxygen Flow Rate (L/min) [At 2 REST with Oxygen] Oxygen Flow Rate (L/min) 2 Oxygen Delivery Method Nasal Cannula Weight: 70.8 kg Body Mass Index (BMI) 26.6 Intake & Output: Intake and Output for Last 24 Hours 08/24/22 08/25/22 08/26/22 23:59 23:59 23:59 Intake Total 1455 / 1455 1655 / 1655 550 / 550 Balance 1455 / 1455 1655 / 1655 550 / 550 Lab / Micro Data Result Diagrams: 08/26/22 06:44 08/26/22 06:44 Labs: Laboratory Results - last 24 hr 08/25/22 12:30: POC Glucose 400 H 08/25/22 16:04: POC Glucose 242 H 08/25/22 21:30: POC Glucose 216 H 08/26/22 06:44: WBC 13.5 H, RBC 4.61, Hgb 13.5, Hct 42.5, MCV 92.2, MCH 29.3, MCHC 31.8 L, RDW Std Deviation 44.8 H, RDW Coeff of Prerna 13.2, Plt Count 165, MPV 9.7, Immature Gran % (Auto) 0.500, Neut % (Auto) 81.2 H, Lymph % (Auto) 12.3 L, [place] % (Auto) 5.8, Eos % (Auto) 0.0, Baso % (Auto) 0.2, Absolute Neuts (auto) 10.9 H, Absolute Lymphs (auto) 1.66, Nucleated RBC % 0 08/26/22 06:44: Sodium 142, Potassium 4.0, Chloride 109 H, Carbon Dioxide 29.0, Anion Gap 4 L, BUN 16, Creatinine 0.53 L, Estim Creat Clear Calc 40.38, Est GFR (MDRD) Af Amer 142, Est GFR (MDRD) Non-Af 118, BUN/Creatinine Ratio 30.1 H, Glucose 163 H, Calcium 9.7 08/26/22 06:44: Hemoglobin A1c 6.7 H 08/26/22 06:44: POC Glucose 141 H Micro: Microbiology 08/24/22 09:30 Blood Culture (Wb) - Anticubital Right Blood Culture - Preliminary No growth in 48 hours. 08/24/22 09:37 Blood Culture (Wb) - Right Hand Blood Culture - Preliminary No growth in 48 hours. 08/24/22 14:58 Sputum, Expectorated/Coughed Gram Stain - Final 08/24/22 14:58 Sputum, Expectorated/Coughed Respiratory Culture - Preliminary Appears to be normal respiratory sanket. Further studies to follow. 08/24/22 14:51 Mucosa - Nasopharyngeal Respiratory Panel (PCR) - Final 08/24/22 10:30 Urine, Clean Catch Legionella Antigen - Final 08/24/22 10:30 Urine, Clean Catch Streptococcus pneumoniae Antigen (M - Final 08/24/22 09:51 Nasal Secretion SARS-CoV-2 & FLU Antigen (Rapid) - Final Physical Exam Const alert and no apparent distress Resp normal respiratory effort and no retractions Resp Narrative: Ackles on mid left lobe. Diffuse faint wheezing bilaterally. Cardio regular rate, regular rhythm, S1 normal heart sound and S2 normal heart sound Assessment & Plan Assessment/Plan (1) COPD exacerbation: PLAN: May be exacerbated due to pneumonia Continue with dilators as well as methylprednisolone Patient ambulated and required 2 L nasal cannula continuously. (2) Pneumonia: PLAN: Left upper lobe pneumonia on CAT scan. Did not appreciate a left lower lobe pneumonia. COVID-19, influenza, respiratory panel, Legionella Streptococcus antigens negative Continue with ceftriaxone and azithromycin. PLAN: Plan Chronic stable conditions: * Diabetes mellitus type 2: On metformin at home. Hold metformin. Accu-Chek before meals and cover with Humalog sliding scale. Glucose might go high on IV Solu-Medrol. 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 2D echo is ordered. Patient history of fracture of left ankle in the past. VTE prophylaxis: Lovenox 40 mg subcu daily. Living will/advanced directive/end of life care: DNRCC arrest with no intubat ion. Patient does not want artificial life support including intubation, tube feed, ventilator and/chest compression, central venous catheter, vasopressor and DC shock if needed
[2022-08-26] MEDS: Cinacalcet HCl 30 MG Tablet PO (09:54)
[2022-08-26] MEDS: Atorvastatin Calcium 20 MG Tablet PO (09:54)
[2022-08-26] MEDS: Multivitamins,Therapeutic Tablet 1 TABLET PO (09:54)
[2022-08-26] MEDS: Cholecalciferol (VIT D3) 25 MCG TABLET (1,000 UNITS) PO (09:54)
[2022-08-26] MEDS: guaiFENesin 1,200 MG Tablet 1200 MG PO (09:54)
[2022-08-26] MEDS: Enoxaparin 40 MG/0.4 ML Syringe SC (09:54)
--- NOTE | 2022-08-26 11:11 | PCM.DC ---
Discharge Instructions Diet Discharge Diet: No restrictions Dressing / Incision Call your doctor if you observe: Shortness of breath Follow Up Care Test Results: Test results from this visit will be discussed in further detail at your follow-up appointment, if applicable. Discharge Plan Admission Admit Date/Time: 08/24/22 12:55 Primary Reason for Your Visit: Pneumonia. COPD exacerbation. Attending Provider: Sebastian Camacho Primary Care Provider: Higinio Salazar Consulting Providers: Edinson Duran Instructions Additional Instructions / Restrictions: Wear oxygen continuous at 2 L/min. Discharge Orders/Prescriptions Prescriptions: New Mucus Relief ER 1,200 mg Tablet Extended Release 12hr 1,200 mg PO BID Qty: 10 0RF Deep Sea Nasal 0.65 % Aerosol,[place] 2 spray NASAL Q4H PRN PRN (Reason: NASAL DRYNESS) Qty: 0 0RF Rx Instructions: Nvay-rwc-frshafn prednisone 20 mg tablet 40 mg PO DAILY Qty: 10 0RF levofloxacin 500 mg tablet 500 mg PO DAILY Qty: 5 0RF Continued atorvastatin 20 mg tablet 20 mg PO DAILY Label Comments: Take 1 tablet by mouth once daily. For cholesterol. cinacalcet 30 mg tablet 30 mg PO DAILY Label Comments: Take 1 tablet by mouth once daily. multivitamin Tablet 1 tab PO DAILY clobetasol 0.05 % cream 1 applic TOPICAL BID PRN (Reason: Rash) Label Comments: Apply to affected area twice daily for 2 days. As needed albuterol sulfate 90 mcg/actuation HFA aerosol inhaler 2 puff INHALATION Q4H PRN (Reason: SOB) Label Comments: Inhale 2 Puffs as instructed every 4 hours as needed for wheezing/shortness of breath. cholecalciferol (vitamin D3) 25 mcg (1,000 unit) Capsule 25 mcg PO DAILY naproxen sodium 220 mg Capsule 440 mg PO DAILY PRN (Reason: Pain) Held metformin 500 mg tablet 500 mg PO DAILY Hold Instructions: Resume on 08/29/22. Label Comments: Take 1 tablet by mouth daily with breakfast. Referrals / Follow Up: [facility] [Provider Group] - Within 1 Month Higinio Salazar MD [Primary Care Provider] - Within 2 Weeks Disposition Disposition (needs filled in before D/C Order can be placed): Home, Self Care
--- NOTE | 2022-08-26 11:15 | DS.PCM_ITS ---
Providers Date of Admission: 08/24/22 Primary Care Physician: Dr. Higinio Salazar MD Reason For Visit: URI, COPD EXACERBATION Diagnosis Discharge Diagnosis (1) COPD exacerbation: Status: Chronic Code(s): J44.1 - Chronic obstructive pulmonary disease with (acute) exacerbation Plan: May be exacerbated due to pneumonia Continue with dilators as well as methylprednisolone Patient ambulated and required 2 L nasal cannula continuously. Recommended patient follow-up with pulmonology as outpatient (2) Pneumonia: Status: Acute Code(s): J18.9 - Pneumonia, unspecified organism Plan: Left upper lobe pneumonia on CAT scan. Did not appreciate a left lower lobe pneumonia. COVID-19, influenza, respiratory panel, Legionella Streptococcus antigens negative Received 2 days of azithromycin and ceftriaxone. Discharged with levofloxacin for 5 more days to complete a 7-day course of antibiotics. Plan Chronic stable conditions: * Diabetes mellitus type 2: On metformin at home. Hold metformin until the eighth and then resume. Living will/advanced directive/end of life care: DNRCC arrest with no intubation. Patient does not want artificial life support including intubation, tube feed, ventilator and/chest compression, central venous catheter, vasopressor and DC shock if needed Medications at Discharge Home Medications albuterol sulfate 90 mcg/actuation aerosol inhaler 2 puff inhalation Q4H PRN SOB 08/24/22 atorvastatin 20 mg tablet 20 mg PO DAILY 08/24/22 cholecalciferol (vitamin D3) 25 mcg (1,000 unit) capsule 25 mcg PO DAILY SUPPLEMENT 08/24/22 cinacalcet 30 mg tablet 30 mg PO DAILY 08/24/22 clobetasol 0.05 % topical cream 1 applic topical BID PRN Rash 08/24/22 metformin 500 mg tablet 500 mg PO DAILY 08/24/22 multivitamin 1 tab PO DAILY SUPPLEMENT 08/24/22 naproxen sodium 220 mg capsule 440 mg PO DAILY PRN Pain 08/24/22 guaifenesin 1,200 mg tablet, extended release 12 hr (Mucus Relief ER) 1,200 mg PO BID #10 tabs 08/26/22 levofloxacin 500 mg tablet 500 mg PO DAILY #5 tabs 08/26/22 prednisone 20 mg tablet 40 mg PO DAILY #10 tabs 08/26/22 sodium chloride 0.65 % nasal spray aerosol (Deep Sea Nasal) 2 spray NASAL Q4H PRN PRN NASAL DRYNESS #0 mL 08/26/22 Hospital Course Operations None Procedures None Summary of Care Provided Minutes Spent on Discharge: 28 Weight / BMI Weight Weight: 70.8 kg Body Mass Index (BMI) 26.6 ABG / Lab / Microbiology Data Result Diagrams: 08/26/22 06:44 08/26/22 06:44 Laboratory: Laboratory Results - last 24 hr 08/25/22 12:30: POC Glucose 400 H 08/25/22 16:04: POC Glucose 242 H 08/25/22 21:30: POC Glucose 216 H 08/26/22 06:44: WBC 13.5 H, RBC 4.61, Hgb 13.5, Hct 42.5, MCV 92.2, MCH 29.3, MCHC 31.8 L, RDW Std Deviation 44.8 H, RDW Coeff of Prerna 13.2, Plt Count 165, MPV 9.7, Immature Gran % (Auto) 0.500, Neut % (Auto) 81.2 H, Lymph % (Auto) 12.3 L, [place] % (Auto) 5.8, Eos % (Auto) 0.0, Baso % (Auto) 0.2, Absolute Neuts (auto) 10.9 H, Absolute Lymphs (auto) 1.66, Nucleated RBC % 0 08/26/22 06:44: Sodium 142, Potassium 4.0, Chloride 109 H, Carbon Dioxide 29.0, Anion Gap 4 L, BUN 16, Creatinine 0.53 L, Estim Creat Clear Calc 40.38, Est GFR (MDRD) Af Amer 142, Est GFR (MDRD) Non-Af 118, BUN/Creatinine Ratio 30.1 H, Glucose 163 H, Calcium 9.7 08/26/22 06:44: Hemoglobin A1c 6.7 H 08/26/22 06:44: POC Glucose 141 H Microbiology: Microbiology 08/24/22 10:30 Urine, Clean Catch Urine Culture - Final Mixed Gram Positive Organisms 08/24/22 09:30 Blood Culture (Wb) - Anticubital Right Blood Culture - Preliminary No growth in 48 hours. 08/24/22 09:37 Blood Culture (Wb) - Right Hand Blood Culture - Preliminary No growth in 48 hours. 08/24/22 14:58 Sputum, Expectorated/Coughed Gram Stain - Final 08/24/22 14:58 Sputum, Expectorated/Coughed Respiratory Culture - Preliminary Appears to be normal respiratory sanket. Further studies to follow. 08/24/22 14:51 Mucosa - Nasopharyngeal Respiratory Panel (PCR) - Final 08/24/22 10:30 Urine, Clean Catch Legionella Antigen - Final 08/24/22 10:30 Urine, Clean Catch Streptococcus pneumoniae Antigen (M - Final 08/24/22 09:51 Nasal Secretion SARS-CoV-2 & FLU Antigen (Rapid) - Final D/C Instructions Discharge Diet: No restrictions Call your doctor if you observe: Shortness of breath Meaningful Use Info Meaningful Use Diagnoses (Choose all that apply): None applicable Discharge Plan Admission Admit Date/Time: 08/24/22 12:55 Primary Reason for Your Visit: Pneumonia. COPD exacerbation. Attending Provider: Sebastian Camacho Primary Care Provider: Higinio Salazar Consulting Providers: Edinson Duran Instructions Additional Instructions / Restrictions: Wear oxygen continuous at 2 L/min. Discharge Orders/Prescriptions Prescriptions: New Mucus Relief ER 1,200 mg Tablet Extended Release 12hr 1,200 mg PO BID Qty: 10 0RF Deep [place] Nasal 0.65 % Aerosol,[place] 2 spray NASAL Q4H PRN PRN (Reason: NASAL DRYNESS) Qty: 0 0RF Rx Instructions: Xnre-vyj-pvxohxb prednisone 20 mg tablet 40 mg PO DAILY Qty: 10 0RF levofloxacin 500 mg tablet 500 mg PO DAILY Qty: 5 0RF Continued atorvastatin 20 mg tablet 20 mg PO DAILY Label Comments: Take 1 tablet by mouth once daily. For cholesterol. cinacalcet 30 mg tablet 30 mg PO DAILY Label Comments: Take 1 tablet by mouth once daily. multivitamin Tablet 1 tab PO DAILY clobetasol 0.05 % cream 1 applic TOPICAL BID PRN (Reason: Rash) Label Comments: Apply to affected area twice daily for 2 days. As needed albuterol sulfate 90 mcg/actuation HFA aerosol inhaler 2 puff INHALATION Q4H PRN (Reason: SOB) Label Comments: Inhale 2 Puffs as instructed every 4 hours as needed for wheezing/shortness of breath. cholecalciferol (vitamin D3) 25 mcg (1,000 unit) Capsule 25 mcg PO DAILY naproxen sodium 220 mg Capsule 440 mg PO DAILY PRN (Reason: Pain) Held metformin 500 mg tablet 500 mg PO DAILY Hold Instructions: Resume on 08/29/22. Label Comments: Take 1 tablet by mouth daily with breakfast. Referrals / Follow Up: [facility] [Provider Group] - Within 1 Month Higinio Salazar MD [Primary Care Provider] - Within 2 Weeks Disposition Disposition (needs filled in before D/C Order can be placed): Home, Self Care Charges/Coding Visit Charges Inpatient E&M: 68197 Disch Hosp
[2022-08-26] MEDS: Insulin Lispro 100 UNIT/ML INSULN.PEN SC (11:33)
[2022-08-26 12:06] LABS: Bedside Glucose 300 mg/dL (74-106)
--- NOTE | 2022-08-26 12:59 | CASEMGMT ---
Spoke with pt nurse, once portable oxygen delivered pt ready for dc.
== END 2022-08-26 15:06 | disposition home or self-care (01) | DRG 194 ==
LOC: ED 13:40 → MS3 15:04 → MS2 08-25 06:55 → MS3 08-25 16:33 → MS2 08-25 16:33
PROVIDERS: Admitting Provider Internal Medicine; Emergency Provider Student in an Organized Health Care Education/Training Program; PCP Family Medicine
DX: J18.9 Pneumonia, unspecified organism (principal); J47.0 Bronchiectasis with acute lower respiratory infection; E11.65 Type 2 diabetes mellitus with hyperglycemia; J43.9 Emphysema, unspecified; M19.071 Primary osteoarthritis, right ankle and foot; M19.072 Primary osteoarthritis, left ankle and foot; T38.0X5A Adverse effect of glucocorticoids and synthetic analogues, initial encounter; Z66 Do not resuscitate; Z79.52 Long term (current) use of systemic steroids; Z79.84 Long term (current) use of oral hypoglycemic drugs; Z79.899 Other long term (current) drug therapy; Z87.891 Personal history of nicotine dependence
CPT/HCPCS: 36415; 71045; 71275; 80048; 80053; 81001; 82962; 83036; 83605; 83735; 84100; 84484; 85025; 85379; 85610; 85730; 87040; 87070; 87086; 87088; 87205; 87428; 87449; 87633; 87635; 93005; 94640; 94667; 94668; 99252; 99285; J7050; Q9967; A4216; G0463; J0696; U0003; U0005

== ENCOUNTER → 2022-10-05 | Outpatient (CLI) | payer MEDICARE, OTHER, SELFPAY ==
--- NOTE | 2022-10-05 07:46 | CT_ITS ---
STUDY: LOW DOSE CT LUNG CANCER SCREENING REASON FOR EXAM: Female, 81 years old. Bronchiectasis, smoker, follow up L mid lung PNA RADIATION DOSAGE (If Supplied By Facility): CTDIvol = ( 3.02 ) mGy, DLP = ( 98.92 ) mGycm TECHNIQUE: No contrast was administered. Low dose technique was utilized (average mAS-38 and kVp 120). 1.25 mm axial source images with a slice interval of 1.25-mm were reconstructed in lung windows. 2.5 mm axial source images with a slice interval of 2.5-mm were reconstructed in lung windows. 5.0 mm axial source images with a slice interval of 5.0-mm were reconstructed in soft tissue windows. COMPARISON: Comparison is made with prior study dated 08/24/2022. NODULES: No suspicious nodules are seen. Emphysema: Hyperinflation and emphysematous changes. Persistent scarring and bronchiectasis in both lower lobes more prominent at the right lung base. This is essentially unchanged. Endobronchial lesion: None Aorta: Mild atherosclerotic calcific plaques of the aortic arch. CORONARY ARTERIES: Coronary artery calcification is seen. Heart: Unremarkable Pulmonary artery: Unremarkable Mediastinal nodes: Benign-appearing mediastinal lymph nodes. Other chest and abdominal findings: Gallstone. CT/Low Dose CT Lung Screening IMPRESSION: Lung-RADS category 2 - Continue annual screening with LDCT in 12 months. IMPORTANT NOTES FOR USE: ACR Lung-RADS Version 1.1 Assessment Categories Release Date: 2018 Category: Coded 0-4 bases on nodule(s) with highest degree of suspicion. Negative screen is defined as categories 1 and 2; a positive screen is defined as categories 3 and 4. Category 3 and 4A nodules that are unchanged on interval CT should be coded as category 2, and individuals returned to screening in 12 months. Category 4X: Category 3 or 4 nodules with additional imaging findings that increase the suspicion of lung cancer, such as spiculation, GGN that doubles in size in 1 year, enlarged lymph notes, etc. Category Modifiers: S (significant finding unrelated to lung cancer) Electronically Signed: Nghia Atkins MD at 10:16 EST ,
[2022-10-05 08:09] LABS: Absolute Lymphocyte Count 1.71 X10^3/uL (0.83-4.51); Absolute Neutrophil Count 4.4 X10^3/uL (2.0-7.7); Basophil# 0.05 X10^3/uL; Basophil% 0.7 % (0-1); Eosinophil# 0.23 X10^3/uL; Eosinophils% 3.3 % (0-5); Hematocrit 46.2 % (37-47); Hemoglobin 14.6 g/dL (12.0-15.0); Lymphocyte # 1.71 X10^3/ul (0.83-4.51); Lymphocyte % 24.9 % (19-41); Mean Corp Hgb Conc 31.6 g/dL (32-36); Mean Corpuscular Hgb 29.1 pg (27.0-32.0); Mean Platelet Vol. 9.6 fl (6.2-12.0); Monocyte# 0.48 X10^3/uL; NRBC Flagged by Analyzer 0 % (0-5); Neutrophil # 4.39 X10^3/uL (2.7-7.7); Neutrophil % 63.8 % (47-70); Platelet Count 208 K/mm3 (150-450); RBC Distribution Width CV 13.9 % (11.6-14.6); Red Blood Count 5.02 M/mm3 (4.2-5.4); White Blood Count 6.9 K/mm3 (4.4-11.0)
== END | disposition home or self-care (01) ==
PROVIDERS: PCP Family Medicine; Referring Provider Internal Medicine; Visit Provider Internal Medicine
DX: J18.0 Bronchopneumonia, unspecified organism (principal); Z87.891 Personal history of nicotine dependence
CPT/HCPCS: 36415; 71271; 85025

== ENCOUNTER → 2022-12-14 | Outpatient (CLI) | payer MEDICARE, OTHER, SELFPAY ==
--- NOTE | 2022-12-15 10:39 | PFTCOMP ---
COMPLETE PULMONARY FUNCTION TEST INTERPRETATION Brief HPI: Patient is an 82-year-old female, currently under the care of Dr. Kenny, who presents to [facility] for complete pulmonary function tests secondary to diagnosis of COPD. Respiratory therapist reports good effort and reproducible results. Interpretation: Forced expiration spirometry shows a moderate large airways obstructive ventilatory defect with an FEV1 of 64% predicted. There is a significant bronchodilator response in FVC by strict ATS criteria. Spirograms are of good quality and plateau slowly, indicating slowly emptying areas of the lungs. The respiratory flow volume loop shows decreased expiratory flow rates at all lung volumes consistent with airway obstruction. Lung volumes by body plethysmography show a normal total lung capacity at 4.55 L, 96% predicted. FRC and RV are elevated out of proportion. Lung volume measurements are consistent with air-trapping. Diffusion capacity by carbon monoxide is decreased at 61% predicted. The airway resistance is elevated. No previous pulmonary function tests were available for review. Impression: Partially reversible moderate large airways obstructive ventilatory defect, resulting in air trapping, and a symmetric reduction in diffusion capacity, consistent with patient's diagnosis of COPD.
== END | disposition home or self-care (01) ==
LOC: PSN 12:18
PROVIDERS: PCP Family Medicine; Referring Provider Internal Medicine; Visit Provider Internal Medicine
DX: J44.9 Chronic obstructive pulmonary disease, unspecified (principal)
CPT/HCPCS: 94060; 94726; 94729

== ENCOUNTER → 2022-12-16 | Outpatient (CLI) | payer MEDICARE, OTHER, SELFPAY ==
[2022-12-16 08:14] VITALS: PULSE 109; PULSE 110; PULSE 112; PULSE 118; PULSE 119; PULSE 120; PULSE 121; PULSE 122; O2SAT 89; O2SAT 90; O2SAT 91; O2SAT 92; O2SAT 95
--- NOTE | 2022-12-16 13:25 | PCM.PSN.6M ---
PSN 6 Minute Walk Test 6 Minute Walk Test 6 Minute Walk Test: 6 Minute Walk Test PSN:6-Minute Walk Test Start: 12/16/22 08:14 Freq: Status: Active Protocol: [id number] Document 12/16/22 08:14 [facility] (Rec: 12/16/22 08:19 [facility] [id number]) 6 Minute Walk Test Date Performed 12/16/22 Time Performed 08:00 Height 5 ft 4 in Weight: 71.668 kg Weight in Pounds 158.[address]: Jhony Kenny Assistive device used: None Pre-test Oxygen Delivery Method Room Air Pulse Ox (%) 95 Pulse Rate (60-100 beats/min) 110 H Dyspnea Sergio Scale (0-10) 0 1st minute Oxygen Delivery Method Room Air Pulse Ox (%) 92 Pulse Rate (60-100 beats/min) 112 H Dyspnea Sergio Scale (0-10) 0 Number of Rests Taken 0 2nd minute Oxygen Delivery Method Room Air Pulse Ox (%) 90 Pulse Rate (60-100 beats/min) 118 H Dyspnea Sergio Scale (0-10) 0 Number of Rests Taken 0 3rd minute Oxygen Delivery Method Room Air Pulse Ox (%) 90 Pulse Rate (60-100 beats/min) 120 H Dyspnea Sergio Scale (0-10) 0 Number of Rests Taken 0 4th minute Oxygen Delivery Method Room Air Pulse Ox (%) 91 Pulse Rate (60-100 beats/min) 119 H Dyspnea Sergio Scale (0-10) 0 Number of Rests Taken 0 5th minute Oxygen Delivery Method Room Air Pulse Ox (%) 91 Pulse Rate (60-100 beats/min) 121 H Dyspnea Sergio Scale (0-10) 0 Number of Rests Taken 0 6th minute Oxygen Delivery Method Room Air Pulse Ox (%) 89 Pulse Rate (60-100 beats/min) 122 H Dyspnea Sergio Scale (0-10) 0 Number of Rests Taken 0 Post-test Oxygen Delivery Method Room Air Pulse Ox (%) 95 Pulse Rate (60-100 beats/min) 109 H Dyspnea Sergio Scale (0-10) 0 Full Laps Walked 17 Partial Lap, Number of Tiles Walked 24 Total Distance Walked (ft) 1027 Interpretation Interpretation: The patient was noted to have a saturation of 95% and a heart rate of 110 bpm at rest. The patient did have significant desaturation as low as 90% with persistent tachycardia throughout testing. Patient's peak heart rate was 122 bpm. These findings are consistent with a cardiovascular limitation exercise tolerance. Recommendations Recommendations: No supplemental oxygen is indicated at this time. However, patient will need to be followed closely given level of desaturation.
== END | disposition home or self-care (01) ==
LOC: PSN 07:51
PROVIDERS: PCP Family Medicine; Referring Provider Internal Medicine; Visit Provider Internal Medicine
DX: J44.9 Chronic obstructive pulmonary disease, unspecified (principal)
CPT/HCPCS: 94618

== ENCOUNTER 2023-03-08 15:30 | Emergency (ER) | payer MEDICARE, OTHER, SELFPAY ==
[2023-03-08 15:30] VITALS: BP 130/69; PULSE 112; RESP 18; TEMP 36.6; O2SAT 95
[2023-03-08 15:57] VITALS: BMI 21.4
--- NOTE | 2023-03-08 16:00 | ED.VIS.DYS ---
HPI History of Present Illness Chief Complaint: Shortness of Breath Informant: patient and friend Narrative Narrative: Patient presents with COPD exacerbation. Patient states for the last 2 or 3 weeks she has been having more wheezing. She has Symbicort at home. She also uses her albuterol inhaler. But she does not have a nebulizer. She is not on oxygen. She can check her oxygen and states that that has been fine. She has had no chest pain. She has had a slight increase in coughing and maybe a little bit more sputum but is still clear. No blood. No leg pain or swelling. She states it may have gotten worse with some of the [place] smoke. She can tolerate prednisone even though it does send her sugars up somewhat. [facility] Medical History Bronchopneumonia COPD, group C, by GOLD 2017 classification Diabetes History of fracture of left ankle Home Medications albuterol sulfate 90 mcg/actuation aerosol inhaler 2 puff inhalation Q4H PRN SOB 08/24/22 [History Last Taken 08/24/22] atorvastatin 20 mg tablet 20 mg PO DAILY 08/24/22 [History Last Taken 08/24/22] cholecalciferol (vitamin D3) 25 mcg (1,000 unit) capsule 25 mcg PO DAILY SUPPLEMENT 08/24/22 [History Last Taken 08/24/22] cinacalcet 30 mg tablet 30 mg PO DAILY 08/24/22 [History Last Taken 08/24/22] clobetasol 0.05 % topical cream 1 applic topical BID PRN Rash 08/24/22 [History Last Taken 1 Week Ago ~08/17/22] metformin 500 mg tablet 500 mg PO DAILY 08/24/22 [History Last Taken 08/24/22] multivitamin 1 tab PO DAILY SUPPLEMENT 08/24/22 [History Last Taken 08/24/22] naproxen sodium 220 mg capsule 440 mg PO DAILY PRN Pain 08/24/22 [History Last Taken 08/24/22] sodium chloride 0.65 % nasal spray aerosol (Deep Sea Nasal) 2 spray NASAL Q4H PRN PRN NASAL DRYNESS #0 mL 08/26/22 [Rx Last Taken Unknown] lisinopril 5 mg tablet 5 mg PO DAILY 09/29/22 [History Last Taken Unknown] umeclidinium 62.5 mcg-vilanterol 25 mcg/actuation powdr for inhalation (Anoro Ellipta) 1 inh inhalation DAILY #60 ea 09/29/22 [Rx Last Taken Unknown] doxycycline monohydrate 100 mg capsule 100 mg PO BID #20 CAPSULES 03/08/23 [Rx Last Taken Unknown] prednisone 20 mg tablet 60 mg (3 x 20 mg) PO DAILY #15 TABLETS 03/08/23 [Rx Last Taken Unknown] Allergy/AdvReac Type Severity Reaction Status Date / Time No Known Allergies Allergy Verified 03/08/23 15:32 Social History Smoking Status: Former smoker Tobacco: How many years used: 50 ROS ROS ED ROS Narrative A complete review of systems was performed and is negative except as documented in the history of present illness. Some specific details below. Constitutional: No recent fevers or chills. Malaise. She is actually maintained her activity pretty well EYE: No discharge, visual complaints, or pain. ENT: No difficulty swallowing. No swelling. No pain. No reflux symptoms. CV: No chest pain or palpitations. Respiratory: See history of present illness. GI: No abdominal pain. No nausea vomiting diarrhea. No blood in stool. : No frequency dysuria or hematuria. Musculoskeletal: No recent trauma. No pains. No swelling. Skin: No rash. Nondiaphoretic. Neuro: No weakness or numbness. Endocrine: No polyuria or polydipsia. EXAM Physical Exam Narrative Exam Narrative: CONSTITUTIONAL: Patient is nontoxic in appearance. The patient looks comfortable. Work of breathing looks normal. She carries on normal conversation but she can hear wheezing just standing in the room. HEENT: No notable trauma. Mucous membranes moist. No sinus tenderness. EYES: No conjunctival injection. No pallor. NECK:No JVD. No stridor. CARDIOVASCULAR: Regular rate. When she checked and her rate was 112 but it is only about 90 now regular rhythm. No notable murmur. No JVD. RESPIRATORY: No respiratory distress. Breathing is unlabored. However she has diffuse inspiratory and expiratory wheezes. She just tolerates this very well. Saturations are 95% on room air showing no hypoxia. GASTROINTESTINAL: Not distended. Bowel sounds are normal. No tenderness. No guarding. No rebound. No palpable mass. No bruit is heard. GENITOURINARY: No tenderness over the bladder. No CVA tenderness. MUSCULOSKELETAL: Atraumatic. No peripheral edema. No cord. No tenderness along the deep venous system. No asymmetry. No distended veins. NEUROLOGICAL: Patient is alert and appropriate. No focal deficit noted. SKIN: No noted rashes. No diaphoresis. PSYCHIATRIC: Patient is calm. Mood is appropriate. Const Vital Signs: 03/08/23 15:30 03/08/23 15:57 03/08/23 16:05 Temperature 97.8 F Temperature Source Temporal Pulse Rate 112 H Respiratory Rate 18 Respiratory Effort Normal Respiratory Depth Shallow Respiratory Pattern Normal Blood Pressure 130/69 H Blood Pressure Mean 89 Pulse Ox 95 90 Oxygen Delivery Method Room Air Room Air 03/08/23 16:05 03/08/23 17:30 03/08/23 19:00 Temperature Temperature Source Pulse Rate 100 96 78 Respiratory Rate 16 18 18 Respiratory Effort Respiratory Depth Respiratory Pattern Blood Pressure 123/79 H Blood Pressure Mean 93 Pulse Ox 90 90 Oxygen Delivery Method Room Air Room Air MDM MDM MDM Narrative Medical decision making narrative: Independent interpretation the patient's single view chest x-ray shows no infiltrate pneumothorax or cardiomegaly. Final reading by radiology is no radiographic evidence of acute cardiopulmonary disease. Patient was rechecked. She is eating lunch. She had just finished choking on food but otherwise felt fine. She did had a saturation of 89%. But after couple deep breaths it came back up to the low mid 90s. She states she feels a little bit better. She does not want to stay in the hospital. She states she just wants to get medicine. We will give her another treatment. We will walk her to make sure she does not significantly desaturate. But patient is awake alert and appropriate and able to make her own decisions. I will see if we can get a spacer for her MDI to improve its use at home. We walked the patient after treatment. She settled at 89 to 90% walking. She is back to the room at 91%. She likely drops all the time. She states when they did an oxygen test on her walking a year or so ago she walked at about 90% and that was her normal. She states after she had pneumonia once she had oxygen did not think it really helped. She feels comfortable to go home. I will write her for antibiotics because she has had a change in character of the sputum. We will write for steroids. I have also talked to our respiratory therapist who is getting her a spacer for her MDI. I have encouraged her to talk to her doctor as she may do well with a nebulizer at home. We did discuss reasons to return. Radiography Diagnostic Testing: Clinical Impression(s) from Imaging Studies Chest X-Ray 03/08/23 16:30 IMPRESSION: No radiographic evidence of acute cardiopulmonary disease. Electronically Signed: Ravinder Nunez MD at 16:45 EDT , EKG Initial EKG: Comments: My independent interpretation the patient's EKG done for dyspnea shows sinus rhythm with PACs and compensatory pause. No ventricular dysrhythmia. No acute ST elevation or depression. Mild nonspecific changes. AR interval, QRS duration and QTc normal. Discharge Plan Triage Chief Complaint: Shortness of Breath ED Provider: Dickson Carias Dx/Rx/DC Orders Clinical Impression: Acute exacerbation of chronic obstructive pulmonary disease Instructions: ED COPD Flare Prescriptions: New prednisone 20 mg tablet 60 mg PO DAILY Qty: 15 0RF doxycycline monohydrate 100 mg capsule 100 mg PO BID Qty: 20 0RF No Action lisinopril 5 mg tablet 5 mg PO DAILY Patient Comments: Take 1 tablet by mouth once daily. Anoro Ellipta 62.5-25 mcg/actuation blister with device 1 inh inhalation DAILY Qty: 60 3RF metformin 500 mg tablet 500 mg PO DAILY Hold Instructions: Resume on 08/29/22. Patient Comments: Take 1 tablet by mouth daily with breakfast. atorvastatin 20 mg tablet 20 mg PO DAILY Patient Comments: Take 1 tablet by mouth once daily. For cholesterol. cinacalcet 30 mg tablet 30 mg PO DAILY Patient Comments: Take 1 tablet by mouth once daily. multivitamin Tablet 1 tab PO DAILY clobetasol 0.05 % cream 1 applic TOPICAL BID PRN (Reason: Rash) Patient Comments: Apply to affected area twice daily for 2 days. As needed albuterol sulfate 90 mcg/actuation HFA aerosol inhaler 2 puff INHALATION Q4H PRN (Reason: SOB) Patient Comments: Inhale 2 Puffs as instructed every 4 hours as needed for wheezing/shortness of breath. cholecalciferol (vitamin D3) 25 mcg (1,000 unit) Capsule 25 mcg PO DAILY naproxen sodium 220 mg Capsule 440 mg PO DAILY PRN (Reason: Pain) Deep Sea Nasal 0.65 % Aerosol,[place] 2 spray NASAL Q4H PRN PRN (Reason: NASAL DRYNESS) Qty: 0 0RF Rx Instructions: [id number] Primary Care Provider: Higinio Salazar Referrals: Higinio Salazar MD [Primary Care Provider] - 3-5 Days if not improving Disposition Disposition: Home, Self Care
[2023-03-08 16:05] VITALS: PULSE 100; RESP 16; O2SAT 90
[2023-03-08] MEDS: Ipratropium/Albuterol Sulfate 3 ML AMPUL.NEB INHALATION (16:08)
[2023-03-08] MEDS: Albuterol 2.5 MG/3 ML VIAL.NEB. INHALATION ×2 (16:09→18:37)
[2023-03-08] MEDS: predniSONE 20 MG Tablet 60 MG PO (16:19)
--- NOTE | 2023-03-08 16:30 | RAD_ITS ---
EXAM: XR CHEST, 1 VIEW CLINICAL INDICATION: SOB TECHNIQUE: Frontal view of the chest. COMPARISON: 08/24/22 FINDINGS: LUNGS AND PLEURAL SPACES: Unremarkable. No consolidation or edema. No pneumothorax. No effusion. HEART: Unremarkable. Cardiac silhouette not enlarged. MEDIASTINUM: Central airways and mediastinal contour are unremarkable. BONES/JOINTS: Unremarkable. SOFT TISSUES: Unremarkable. RAD/Chest 1 View (Portable) IMPRESSION: No radiographic evidence of acute cardiopulmonary disease. Electronically Signed: Ravinder Nunez MD at 16:45 EDT ,
[2023-03-08 17:30] VITALS: PULSE 96; RESP 18; O2SAT 90
--- NOTE | 2023-03-08 18:59 | CPS ---
[1837] Pre-tx: HR = 106, RR = 22 with expiratory wheezes and diminished breath sounds. Post-tx: HR = 110, RR = 22 with clearer breath sounds and expiratory wheezes. Pt. states that the tx.'s aren't helping with her dyspnea.
[2023-03-08 19:00] VITALS: BP 123/79; PULSE 78; RESP 18; O2SAT 90
== END 2023-03-08 19:22 | disposition home or self-care (01) ==
PROVIDERS: Emergency Provider Emergency Medicine; PCP Family Medicine; Visit Provider Emergency Medicine
DX: J44.1 Chronic obstructive pulmonary disease with (acute) exacerbation (principal); Z87.891 Personal history of nicotine dependence
CPT/HCPCS: 71045; 93005; 94640; 99283

== ENCOUNTER 2023-11-29 16:55 | Inpatient (IN) | payer MEDICARE, OTHER, SELFPAY ==
[2023-11-29] VITALS (8 sets, daily range): BP systolic 107–138; BP diastolic 58–76; PULSE 106–129; RESP 17–26; TEMP 36.5–36.7; O2SAT 87–97; BMI 25.9; BMI 25.8
--- NOTE | 2023-11-29 18:20 | EKG12_ITS ---
Test Reason : DYSRHYTHMIA Blood Pressure : / mmHG Vent. Rate : 118 BPM Atrial Rate : 118 BPM P-R Int : 140 ms QRS Dur : 074 ms QT Int : 316 ms P-R-T Axes : 082 084 073 degrees QTc Int : 442 ms Sinus tachycardia Otherwise normal ECG Confirmed by Hans Solis ([id number]), supervising film or videotape editor MIYA MALCOLM ([id number]) on 11/30/2023 10:35:33 AM Referred By: Confirmed By:Hans Solis
[2023-11-29 18:34] LABS: Absolute Lymphocyte Count 1.22 X10^3/uL (0.83-4.51); Basophil# 0.08 X10^3/uL; Basophil% 0.5 % (0-1); Eosinophil# 0.39 X10^3/uL; Eosinophils% 2.3 % (0-5); Hematocrit 45.3 % (37-47); Hemoglobin 14.5 g/dL (12.0-15.0); Lymphocyte # 1.22 X10^3/ul (0.83-4.51); Lymphocyte % 7.3 % (19-41); Mean Corpuscular Hgb 29.5 pg (27.0-32.0); Mean Corpuscular Volume 92.1 fL (81-99); Mean Platelet Vol. 10.8 fl (6.2-12.0); Monocyte# 1.07 X10^3/uL; Monocyte% 6.4 % (0-10); NRBC Flagged by Analyzer 0 % (0-5); Neutrophil # 13.95 X10^3/uL (2.7-7.7); Neutrophil % 82.9 % (47-70); Platelet Count 221 K/mm3 (150-450); RBC Distribution Width CV 13.8 % (11.6-14.6); RBC Distribution Width SD 46.8 fl (35.1-43.9); Red Blood Count 4.92 M/mm3 (4.2-5.4); White Blood Count 16.8 K/mm3 (4.4-11.0)
--- NOTE | 2023-11-29 18:43 | RAD_ITS ---
STUDY: X-RAY CHEST REASON FOR EXAM: Female, 83 years old. Dyspnea TECHNIQUE: Single AP portable view of the chest. COMPARISON: None. FINDINGS: There is mild lower lung linear scarring or atelectasis. There is no demonstrated pleural abnormality. Normal size heart. Normal mediastinum and north. Normal visualized pulmonary arteries. Normal visualized aortic arch and descending thoracic aorta. There is a dextroscoliosis of the thoracic spine. Normal visualized ribs, clavicles, and shoulders. There is no demonstrated abnormality of the visualized soft tissue structures of the upper abdomen. RAD/Chest 1 View (Portable) IMPRESSION: Degenerative changes, as described above. No demonstrated acute cardiopulmonary process. Electronically Signed: Eddie Quan MD at 19:38 EDT ,
--- NOTE | 2023-11-29 18:47 | ED.RN ---
WENT IN TO DO THE ASSESSMENT OF THE PT AND FILL HER IN ON THE PLAN OF CARE AND TEST ORDERED WHEN PTS DAUGHTER WAS AGGRESSIVELY ASKING IF THE DIRECTOR PHARMACEUTICAL WAS CALLED. EXPLAINED THAT DOESN'T HAPPEN UNTIL TEST RESULTS ARE BACK AND THE ER DR FEELS THEY NEED CONSULTED. WHEN EXPLAINING THE TEST THAT WERE ORDERED TO THE PT THE DAUGHTER INTERRUPTED AND ASKED WHEN THE GALLBLADDER WOULD BE ADDRESSED. EXPLAINED THE TEST AND ALSO THE CONCERNS ABOUT THE PTS PULSE OX BEING LOW. AT THIS TIME THE DAUGHTER APPEARED ANGRY AT THE ANSWERS AND ASKED ABOUT THE TEST MULTIPLE TIMES AND THIS NURSE CONTINUED TO EXPLAIN WHAT THE TEST WERE FOR AND THE PROCESS OF TESTING AND FOLLOW UP WHEN THE TEST ARE BACK. ALSO INFORMED THE FAMILY THAT ONLY 2 VISITORS ARE ALLOWED AT A TIME AT WHICH TIME DAUGHTER STATED THATS FINE. THIS NURSE EXPLAINED THAT THEY COULD SWITCH OUT AND ONE WOULD NEED TO GO OUT. DAUGHTER STATED SHE HEARD ME AND THEY STILL HAVE NOT HAD ANYONE LEAVE. PHYSICIAN ENTERED THROUGH ROOM SO THIS WILL BE ADDRESSED AGAIN WHEN THE PHYSICIAN IS DONE TALKING TO PT AND FAMILY.
[2023-11-29 18:50] LABS: ALB/GLOB Ratio 0.7 RATIO (0.9-2.4); AST(SGOT) 18 U/L (15-37); Alanine Aminotransfer ALT/SGPT 19 U/L (13-56); Albumin, Serum 2.9 g/dL (3.2-5.0); Alkaline Phosphatase 65 U/L (45-117); Anion Gap 7 (5-15); BUN 10 mg/dL (7-18); BUN/Creat Ratio 15.7 RATIO (10-20); Chloride 102 mmol/L (98-107); Creatinine, Serum 0.64 mg/dL (0.55-1.02); EST Glomerular Filtration Rate 95 mL/min (>60); Est Glom Filt Rate - Afr Amer 115 mL/min (>60); Estimated Creatinine Clearance 49.67 ml/min; Glucose 236 mg/dL (74-106); Lipase 43 U/L (13-75); Potassium 4.4 mmol/L (3.5-5.1); Protein, Total 6.9 g/dL (6.4-8.2); Sodium Level 136 mmol/L (136-145); Troponin-I HS 8 pg/mL (3.0-54.0)
--- NOTE | 2023-11-29 19:10 | CT_ITS ---
STUDY: CTA CHEST REASON FOR EXAM: Female, 83 years old. Hypoxia RADIATION DOSAGE (If Supplied By Facility): CTDIvol = ( 8.66 ) mGy, DLP = ( 334.86 ) mGycm TECHNIQUE: The examination was performed with the intravenous administration of IV 100mL Isovue-370. Post-processing of the angiographic images was performed, with multiplanar reformation and 3D reconstruction. Individualized dose optimization techniques were used for this CT. COMPARISON: Chest x-ray FINDINGS: Normal enhancement of the main pulmonary artery and right and left pulmonary arteries. Normal enhancement of the bilateral peripheral pulmonary arteries. There is no demonstrated pulmonary embolism. There is atherosclerotic calcification of the aortic arch with tortuosity. There is no demonstrated aortic dissection. Normal heart and pericardium. There are paratracheal and right hilar lymph nodes measuring up to 1.9 cm. Normal hilar regions. Normal visualized trachea and bronchi. The lungs are well expanded. There is emphysema of the lungs. There are mild fibrotic densities. Normal pleura. Normal chest wall structures. There is an enlarged thyroid with multiple nodules. There is thoracic dextro scoliosis with degenerative change. There is a solitary gallstone. There are bilateral adrenal adenomas. CT/CTA Chest W/WO Contrast IMPRESSION: CTA chest examination, without a demonstrated pulmonary embolism or arterial dissection. Emphysema and fibrotic densities. Electronically Signed: Eddie Quan MD at 20:46 EDT ,
--- NOTE | 2023-11-29 19:13 | EDS_ITS ---
HPI HPI - GI History of Present Illness Chief Complaint: Abd Pain Narrative Narrative: 83-year-old female presenting for chief complaint of dyspepsia and epigastric burning which she has had for couple of weeks. Patient states that in May she saw Dr. Salazar for GERD like symptoms and was put on omeprazole and on reevaluation about 4 weeks later she had not had a significant improvement in her symptoms and states that he told her to discontinue it if it was not helping. She states that her symptoms did improve however shortly after and has not really had a problem until the last couple of weeks when she notes she has had burning in her epigastrium. It is constant. It is not related to food necessarily. She does not get any sharp or aching pain in the right upper quadrant. She has not had any fevers at home. She periodically gets nausea and describes dyspepsia and GERD like symptoms. She also admits to small amount of diarrhea. She states she was retreated for COPD exacerbations over the last few weeks and has been on prednisone. She is also been on breathing treatments. She showed up today hypoxic 87% and states she is very weak and having difficulty getting around. She is not eating much as well because of epigastric burning. She denies chest pain. [facility] Medical History Bronchopneumonia COPD, group C, by GOLD 2017 classification Diabetes History of fracture of left ankle Home Medications albuterol sulfate 90 mcg/actuation aerosol inhaler 2 puff inhalation Q4H PRN SOB 08/24/22 [History Last Taken 08/24/22] atorvastatin 20 mg tablet 20 mg PO DAILY 08/24/22 [History Last Taken 08/24/22] clobetasol 0.05 % topical cream 1 applic topical BID PRN Rash 08/24/22 [History Last Taken 1 Week Ago ~08/17/22] multivitamin 1 tab PO DAILY SUPPLEMENT 08/24/22 [History Last Taken 08/24/22] diltiazem HCl 120 mg capsule,24 hr,extended release 120 mg PO QDAY 11/07/23 [History Last Taken Unknown] fluticasone fur. 200 mcg-umeclid 62.5 mcg-vilant 25 mcg inhalat.powder (Trelegy Ellipta) 1 inh inhalation DAILY #60 ea 11/07/23 [Rx Last Taken Unknown] metformin 500 mg tablet 500 mg PO BID 11/07/23 [History Last Taken Unknown] albuterol sulfate 2.5 mg/3 mL (0.083 %) solution for nebulization 2.5 mg inhalation Q4H PRN PRN wheezing 11/29/23 [History Last Taken Unknown] Allergy/AdvReac Type Severity Reaction Status Date / Time No Known Allergies Allergy Verified 11/07/23 12:41 Social History Smoking Status: Former smoker Tobacco: How many years used: 50 ROS ROS ED Review of Systems ROS Unobtainable: Denies due to encephalopathy Constitutional Constitutional ED: Denies chills or fever(s) ENT ENT ED: Denies rhinorrhea Cardiovascular Cardiovascular: Denies chest pain or palpitations Respiratory/Chest Respiratory/Chest: Reports cough, dyspnea and dyspnea on exertion Gastrointestinal Gastrointestinal: Reports abdominal pain and nausea Genitourinary Genitourinary ED: Denies dysuria or hematuria Musculoskeletal Musculoskeletal: Denies arthralgias Integumentary Denies abscess Neurologic Neurologic: Denies headache(s) or paresthesias Psychiatric Psychiatric: Denies anxiety EXAM Physical Exam Const Vital Signs: 11/29/23 16:56 11/29/23 19:45 11/29/23 19:30 Temperature 97.7 F L Temperature Source Temporal Pulse Rate 129 H 118 H 122 H Respiratory Rate 26 H 26 H 20 H Respiratory Pattern Normal Blood Pressure 107/70 138/58 H Blood Pressure Mean 82 84 Pulse Ox 87 91 Oxygen Delivery Method Room Air Nasal Cannula Oxygen Flow Rate (L/min) 2 11/29/23 20:42 11/29/23 20:49 11/29/23 22:00 Temperature Temperature Source Pulse Rate 107 H Respiratory Rate 19 H Respiratory Pattern Blood Pressure 110/76 Blood Pressure Mean 86 Pulse Ox 88 94 97 Oxygen Delivery Method Nasal Cannula Nasal Cannula Oxygen Flow Rate (L/min) 2 4 Positive well nourished Constitutional Narrative: Dyspneic. Speaking in full sentences. General Appearance ED: Negative for pallor HEENT Reports moist mucous membranes normocephalic and atraumatic Eyes PERRL and EOMs intact bilaterally Resp normal respiratory effort and clear to auscultation bilaterally Resp Narrative: Dyspneic. GI GI Narrative: Mild epigastric tenderness. Negative Almazan sign. Back/Spine no CVA tenderness Neuro CN's II-XII intact bilaterally Sensorium / Orientation: alert Psych mental status grossly normal and thought process normal Skin General Skin Exam: Negative for jaundice or pallor MDM MDM MDM Narrative Medical decision making narrative: Patient initially presenting for abdominal pain which she was told was her gallbladder. She was referred to the ER for this. On examination she has mild epigastric burning and dyspepsia and negative Almazan sign. Patient of note is hypoxic on arrival at 87% on room air and does not use oxygen. She has a history of asthma/COPD overlap and has been currently being treated by pulmonology on steroids and breathing treatments but has not been improving significantly. She is denying chest pain but does states she is short of breath and she is coughing more frequently. No fevers or chills. Differential includes pneumonia, COVID, flu, RSV, dehydration, anemia, ACS, dysrhythmia, CHF, PE, gastritis, GERD, cholelithiasis, cholecystitis, colitis. CBC was obtained to assess white blood cell count, hemoglobin, platelets. CMP to assess liver function, renal function, electrolytes, anion gap. Lipase to assess for pancreatitis. High-sensitivity troponin EKG to assess for ischemia/dysrhythmia. Chest x-ray to rule out pneumonia or CHF. Urinalysis to assess for UTI. CBC shows 16.8 white count and this is likely due to steroid use. Hemoglobin 14.5. Renal function within normal limits with normal electrolytes. LFTs and lipase normal. Urinalysis negative. Patient was given breathing treatments initially to see if this would help her respiratory status but she has not having any wheezing. She was also given a GI cocktail for her dyspepsia. On reevaluation she states GI cocktail helped with her abdominal pain. Because she is hypoxic and not wheezing we obtained a CTA of the chest which was negative for PE dissection or acute infiltrate. Given the ongoing pain in the abdomen family requested ultrasound be performed of the concern for her gallbladder and this shows some sludge but no acute findings requiring any surgical intervention. Given that the patient is still hypoxic I will need to admit her for this. Discussed with hospitalist for admission. Impression: 1. Hypoxic respiratory failure 2. Acute bronchitis 3. Abdominal pain 4. GERD 5. Leukocytosis Lab Data Attestation: I reviewed the patient's lab results. Labs: Laboratory Results - last 24 hr 11/29/23 11/29/23 17:35 19:43 WBC 16.8 H RBC 4.92 Hgb 14.5 Hct 45.3 MCV 92.1 MCH 29.5 MCHC 32.0 RDW Std Deviation 46.8 H RDW Coeff of Prerna 13.8 Plt Count 221 MPV 10.8 Immature Gran % (Auto) 0.600 Neut % (Auto) 82.9 H Lymph % (Auto) 7.3 L [place] % (Auto) 6.4 Eos % (Auto) 2.3 Baso % (Auto) 0.5 Absolute Neuts (auto) 14.0 H Absolute Lymphs (auto) 1.22 Nucleated RBC % 0 Sodium 136 Potassium 4.4 Chloride 102 Carbon Dioxide 27.0 Anion Gap 7 BUN 10 Creatinine 0.64 Estim Creat Clear Calc 49.67 Est GFR (MDRD) Af Amer 115 Est GFR (MDRD) Non-Af 95 BUN/Creatinine Ratio 15.7 Glucose 236 H Calcium 10.0 Total Bilirubin 0.90 AST 18 ALT 19 Alkaline Phosphatase 65 Troponin I High Sens 8 B-Natriuretic Peptide 9.9 Total Protein 6.9 Albumin 2.9 L Globulin 4.0 Albumin/Globulin Ratio 0.7 L Lipase 43 Urine Color Yellow Urine Clarity Clear Urine pH 5.0 Ur Specific [place] 1.030 Urine Protein 30 H Urine Glucose (UA) 250 H Urine Ketones 50 H Urine Occult Blood 10 H Urine Nitrite Negative Urine Bilirubin 1 H Urine Urobilinogen 1 H Ur Leukocyte Esterase 100 H Urine RBC 0 SEEN Urine WBC 0-5 SEEN Ur Squamous Epith Cells 0-5 SEEN Calcium Oxalate Crystal 1+ Urine Bacteria 0 SEEN Urine Mucus 2+ Radiography Diagnostic Testing: Clinical Impression(s) from Imaging Studies Chest X-Ray 11/29/23 18:43 IMPRESSION: Degenerative changes, as described above. No demonstrated acute cardiopulmonary process. Electronically Signed: Eddie Quan MD at 19:38 EDT Reading Location ID and State: [facility] / MD , Service support , Chest CTA 11/29/23 19:10 IMPRESSION: CTA chest examination, without a demonstrated pulmonary embolism or arterial dissection. Emphysema and fibrotic densities. Electronically Signed: Eddie Quan MD at 20:46 EDT , Gallbladder Ultrasound 11/29/23 20:19 IMPRESSION: Gallstone. Sludge in the gallbladder. No biliary dilation. Nonspecific hypoechoic mass in the left lobe of the liver. Consider follow-up MRI for further characterization. Electronically Signed: Eddie Quan MD at 21:14 EDT , Discharge Plan Triage Chief Complaint: Abd Pain ED Provider: Melo Lee Dx/Rx/DC Orders Primary Care Provider: Higinio Salazar
[2023-11-29] MEDS: Ipratropium/Albuterol Sulfate 3 ML AMPUL.NEB INHALATION (19:30)
[2023-11-29] MEDS: Albuterol 2.5 MG/3 ML VIAL.NEB. INHALATION (19:30)
[2023-11-29] MEDS: Mag Hydrox/Al Hydrox/Simeth 30 ML UDC PO (19:30)
[2023-11-29] MEDS: Ondansetron 4 MG/2 ML Vial IM (19:30)
[2023-11-29] MEDS: MethylPREDNISolone 125 MG/2 ML Vial IV (19:30)
[2023-11-29 19:46] LABS: BNP,B-Type NATRIURETIC PEPTIDE 9.9 pg/mL (0-100)
[2023-11-29 19:48] LABS: Bacteria 0 SEEN /hpf (None Seen); Red Blood Cells-Urine 0 SEEN /hpf (0-5)
[2023-11-29 19:52] LABS: Color, Urine Yellow (Yellow); Glucose, Dipstick 250 mg/dl (Normal); Ketone-Dipstick 50 mg/dl (Negative); Leukocyte Esterase-Dipstick 100 /ul (Negative); Nitrite-Dipstick Negative (Negative); Occult Blood-Urine 10 /ul (Negative); Protein-Dipstick 30 mg/dl (Negative); Urine Clarity Clear (Clear); Urine Urobilinogen 1 mg/dl (Normal)
[2023-11-29 19:53] LABS: Urine Bilirubin Dipstick 1 mg/dL (Negative)
[2023-11-29 20:03] LABS: Calcium Oxalate Crystals Ur 1+ /hpf (<or=2+); Mucous, Urine 2+ /hpf (<or=2+); Squamous Epithelial Cells - UA 0-5 SEEN /hpf (5-10); White Blood Cells 0-5 SEEN /hpf (0-5)
--- NOTE | 2023-11-29 20:15 | CPS ---
x1 Albuterol given to pt. in ER as well
--- NOTE | 2023-11-29 20:19 | US_ITS ---
STUDY: ABDOMINAL ULTRASOUND - RIGHT UPPER QUADRANT REASON FOR VISIT: Female, 83 years old RUQ pain TECHNIQUE: Ultrasound evaluation of the right upper quadrant was performed with real-time and static holland-scale imaging. TECHNICAL QUALITY: Adequate. COMPARISON: None. FINDINGS: Liver: The liver measures 15.0 cm. There is increased echogenicity consistent with fatty infiltration. The bile ducts are within normal limits. There is hepatic color flow. The direction of portal flow is hepatopetal. There is 2.7 x 2.4 cm hypoechoic mass in the left lobe. Gallbladder: Normal distended gallbladder. The gallbladder wall measures 2 mm. There is a negative sonographic Almazan''s sign. There is no pericholecystic fluid. There is a solitary echogenic gallstone within the gallbladder. There is sludge in the gallbladder. Common Bile Duct (C.B.D.): The common bile duct measures 4 mm. Pancreas: Normal size of the head, body and tail of the pancreas. There is normal echogenicity of the pancreas. There is no demonstrated pancreatic mass or cyst. Right Kidney: Normal size of the right kidney. The right kidney measures 11.7 cm. Normal renal cortex. The right cortex measures 1.7 cm. There is no demonstrated renal mass or cyst. There is no right hydronephrosis. US/Gallbladder IMPRESSION: Gallstone. Sludge in the gallbladder. No biliary dilation. Nonspecific hypoechoic mass in the left lobe of the liver. Consider follow-up MRI for further characterization. Electronically Signed: Eddie Quan MD at 21:14 EDT ,
[2023-11-29] MEDS: Famotidine 200 MG/20 ML MDV 20 MG in 0.9% Normal Saline (Pres. free 8 ML 300 MG IV (20:45)
--- NOTE | 2023-11-29 21:53 | PCM.HP.STD ---
[facility] - General General Date of Admission: 11/29/23 Date of Service: 11/29/23 Chief Complaint: Burning upper abdominal pain and shortness of breath. [facility] Narrative XANDER SORTO, is a 83 F with a past medical history of essential hypertension, hyperlipidemia, history of tobacco abuse; with subsequent asthma/COPD overlap syndrome, DM-2; of unknown control on Metformin, history of pneumonia, GERD; with remote history of PUD (~50 years ago) and OA who presents to [facility] ER complaining of burning upper abdominal pain and shortness of breath. Ms. Sorto reports her symptoms began approximately four weeks prior to admission with complaints of dyspepsia and epigastric burning. She explained that she was seen in May [address] Salazar for severe GERD symptoms and was put on omeprazole. Upon reevaluation approximately 4 weeks ago she had not had significant lasting improvement in her symptoms and was told to discontinue this agent if it was not helping. She states that her symptoms did improve briefly but then recurred with severe burning sensation in her epigastrium with that is constant with intermittent nausea that is not related to food. She denies associated fever, chills, vomiting or chest pain but she does admit to shortness of breath with dyspnea on exertion with an oxygen saturation of ~80% from percent on room air noted today. She also denies right upper quadrant pain or jaundice but she does admit her pain and dyspepsia are similar to her previous PUD. In the ER she was diagnosed with suspected acute bronchitis with mild acute exacerbation of asthma/COPD overlap syndrome complicated by acute respiratory insufficiency along with suspected adverse drug reaction to NSAIDs and steroids causing suspected gastritis with possible peptic ulcer disease plus gallbladder ultrasound positive for sludge and hypoechoic mass in the left lobe of the liver incidentally noted on CT and she was then admitted to the general medical floor for ongoing care for stay is expected to be greater than 48 hours. [facility] Medical History Bronchopneumonia COPD, group C, by GOLD 2017 classification Diabetes History of fracture of left ankle Home Medications albuterol sulfate 90 mcg/actuation aerosol inhaler 2 puff inhalation Q4H PRN SOB 08/24/22 [History Last Taken 08/24/22] atorvastatin 20 mg tablet 20 mg PO DAILY 08/24/22 [History Last Taken 08/24/22] clobetasol 0.05 % topical cream 1 applic topical BID PRN Rash 08/24/22 [History Last Taken 1 Week Ago ~08/17/22] multivitamin 1 tab PO DAILY SUPPLEMENT 08/24/22 [History Last Taken 08/24/22] diltiazem HCl 120 mg capsule,24 hr,extended release 120 mg PO QDAY 11/07/23 [History Last Taken Unknown] fluticasone fur. 200 mcg-umeclid 62.5 mcg-vilant 25 mcg inhalat.powder (Trelegy Ellipta) 1 inh inhalation DAILY #60 ea 11/07/23 [Rx Last Taken Unknown] metformin 500 mg tablet 500 mg PO BID 11/07/23 [History Last Taken Unknown] albuterol sulfate 2.5 mg/3 mL (0.083 %) solution for nebulization 2.5 mg inhalation Q4H PRN PRN wheezing 11/29/23 [History Last Taken Unknown] Allergy/AdvReac Type Severity Reaction Status Date / Time No Known Allergies Allergy Verified 11/07/23 12:41 Social History Smoking Status: Former smoker Tobacco: How many years used: 50 ROS ROS Narrative Review of systems: General: Patient denies fever or chills. HENT: Denies headache, denies stuffy nose, denies sore throat EYES: Denies changes in vision or discharge from eyes. Resp: Patient admits to shortness of breath with nonproductive cough as per HPI. Cardiac: Denies chest pain or palpitations. GI: Patient admits to abdominal pain that is burning in the epigastrium with intermittent nausea as per HPI. : Denies changes in urination Extremity: Denies swelling Musculoskeletal: Patient denies arthralgias or myalgias. Neuro: Patient denies headache, paresthesias or focal neurologic weakness. Heme: Denies any bleeding or bruising Skin: Denies rashes or jaundice. Psychiatric: No complaints voiced related to uncontrolled depression or anxiety. Endocrine: No polyuria, polydipsia or polyphagia. The rest of the 14 point ROS was negative except for positives in HPI. Vital Signs Vital Signs Vital Signs: 11/29/23 16:56 11/29/23 19:45 11/29/23 19:30 Temperature 97.7 F L Temperature Source Temporal Pulse Rate 129 H 118 H 122 H Respiratory Rate 26 H 26 H 20 H Respiratory Pattern Normal Blood Pressure 107/70 138/58 H Blood Pressure Mean 82 84 Pulse Ox 87 91 Oxygen Delivery Method Room Air Nasal Cannula Oxygen Flow Rate (L/min) 2 11/29/23 20:42 11/29/23 20:49 Temperature Temperature Source Pulse Rate Respiratory Rate Respiratory Pattern Blood Pressure Blood Pressure Mean Pulse Ox 88 94 Oxygen Delivery Method Nasal Cannula Nasal Cannula Oxygen Flow Rate (L/min) 2 4 Weight Weight: 146 lb 9 oz Body Mass Index (BMI) 25.9 Physical Exam Const alert, oriented x3, no apparent distress and average body habitus General Appearance: cooperative HEENT normocephalic, head/scalp atraumatic, hearing grossly normal bilaterally and moist oral mucous membranes Eyes PERRL and EOMs intact bilaterally Neck no lymphadenopathy and supple Resp Resp Narrative: Diminished breath sounds throughout with scattered rhonchi and wheezes. Auscultation: rhonchi and wheezes Cardio regular rate and regular rhythm GI normal to inspection, nondistended, normoactive bowel sounds, soft to palpation and non-distended GI Narrative: Patient has mild tenderness to palpation in the epigastrium. Extremity normal to inspection and full ROM Skin Skin Narrative: Patient has no evidence of rash or jaundice. Neuro oriented x3, CN's II-XII intact bilaterally, moves all extremities and no focal motor deficits Sensorium / Orientation: awake, alert, oriented to person, oriented to place and oriented to time Speech: speech normal Psych Mood & Affect: anxious Results Medical Records Data Attestation: I reviewed the patient's medical records Lab / Micro Data Attestation: I reviewed the patient's lab results. 11/29/23 17:35 11/29/23 17:35 Labs: Laboratory Results - last 24 hr 11/29/23 17:35: WBC 16.8 H, RBC 4.92, Hgb 14.5, Hct 45.3, MCV 92.1, MCH 29.5, MCHC 32.0, RDW Std Deviation 46.8 H, RDW Coeff of Prerna 13.8, Plt Count 221, MPV 10.8, Immature Gran % (Auto) 0.600, Neut % (Auto) 82.9 H, Lymph % (Auto) 7.3 L, Osborne % (Auto) 6.4, Eos % (Auto) 2.3, Baso % (Auto) 0.5, Absolute Neuts (auto) 14.0 H, Absolute Lymphs (auto) 1.22, Nucleated RBC % 0, Sodium 136, Potassium 4.4, Chloride 102, Carbon Dioxide 27.0, Anion Gap 7, BUN 10, Creatinine 0.64, Estim Creat Clear Calc 49.67, Est GFR (MDRD) Af Amer 115, Est GFR (MDRD) Non-Af 95, BUN/Creatinine Ratio 15.7, Glucose 236 H, Calcium 10.0, Total Bilirubin 0.90, AST 18, ALT 19, Alkaline Phosphatase 65, Troponin I High Sens 8, B-Natriuretic Peptide 9.9, Total Protein 6.9, Albumin 2.9 L, Globulin 4.0, Albumin/Globulin Ratio 0.7 L, Lipase 43 11/29/23 19:43: Urine Color Yellow, Urine Clarity Clear, Urine pH 5.0, Ur Specific Williams 1.030, Urine Protein 30 H, Urine Glucose (UA) 250 H, Urine Ketones 50 H, Urine Occult Blood 10 H, Urine Nitrite Negative, Urine Bilirubin 1 H, Urine Urobilinogen 1 H, Ur Leukocyte Esterase 100 H, Urine RBC 0 SEEN, Urine WBC 0-5 SEEN, Ur Squamous Epith Cells 0-5 SEEN, Calcium Oxalate Crystal 1+, Urine Bacteria 0 SEEN, Urine Mucus 2+ Micro: Microbiology 11/29/23 19:38 Mucosa - Nose SARS-CoV-2, Influenza & RSV (PCR) - Final Imaging Radiology Impression Chest X-Ray 11/29/23 18:43 IMPRESSION: Degenerative changes, as described above. No demonstrated acute cardiopulmonary process. Electronically Signed: Eddie Quan MD at 19:38 EDT , Chest CTA 11/29/23 19:10 IMPRESSION: CTA chest examination, without a demonstrated pulmonary embolism or arterial dissection. Emphysema and fibrotic densities. Electronically Signed: Eddie Quan MD at 20:46 EDT , Gallbladder Ultrasound 11/29/23 20:19 IMPRESSION: Gallstone. Sludge in the gallbladder. No biliary dilation. Nonspecific hypoechoic mass in the left lobe of the liver. Consider follow-up MRI for further characterization. Electronically Signed: Eddie Quan MD at 21:14 EDT Reading Location ID and State: [facility] / [place] , Service support , Assessment & Plan Assessment/Plan (1) Asthma-COPD overlap syndrome: (2) Acute bronchitis: QUALIFIERS: Bronchitis organism: unspecified organism Qualified Code(s): J20.9 - Acute bronchitis, unspecified (3) Respiratory insufficiency: (4) Gastritis and gastroduodenitis: (5) Liver lesion, left lobe: PLAN: Plan 1. Acute bronchitis with mild acute exacerbation of asthma/COPD overlap syndrome - Admit to general medical floor. Continue IV Solu-Medrol and add IV doxycycline. Continue scheduled and as needed nebulizers plus add decongestant. 2. Respiratory insufficiency due to #1 - Wean supplemental oxygen as tolerated. 3. Suspected adverse drug reaction to NSAIDs and steroids causing suspected gastritis with possible recurrent peptic ulcer disease in the setting of known GERD refractory to treatment with oral Protonix as outpatient with persistent burning pain in epigastrium complicating #1 & #2 - Keep n.p.o. Start IV Protonix twice daily. Finally, we will consult Dr. Flores of gastroenterology for recommendations regarding possible EGD this admission to objectively confirm suspicion of gastritis and peptic ulcer disease without appreciated in advance. 4. Incidentally noted hypoechoic lesion in the left lobe of the liver compounding #1 - #3 - Proceed with liver MRI recommended by radiology. GI consult will also be asked to help plan for possible biopsy. 5. Gallbladder sludge due to microlithiasis evident on ultrasound - Noted. Patient may benefit from general surgical consultation once her above problems have resolved. 6. Essential hypertension - Give IV hydralazine as needed for systolic blood pressure greater than 160 mmHg. 7. Hyperlipidemia - Resume statin once patient is able to safely tolerate oral intake. 8. DM-2; of unknown control on Metformin - Keep n.p.o. for now. Hold Metformin. Fingerstick blood sugars every 6 hours plus lowest intensity sliding scale insulin. Check hemoglobin A1c to objectively evaluate quality of diabetic control. 9. History of pneumonia - Noted. 10. OA - Stable. Avoid NSAIDs. 11. DVT prophylaxis - SCDs only with likely impending EGD and suspected gastritis and duodenitis with recurrent peptic ulcer disease. Total time: Approximately 55 minutes. Charges/Coding Visit Charges Inpatient E&M: 29577 Init Hosp L2
[2023-11-29] MEDS: 0.9% Normal Saline (1000mL) 1,000 ML 70 ML IV (23:30)
[2023-11-29] MEDS: Pantoprazole Sodium 40 MG in 0.9% Normal Saline (100mL MB+) 100 ML 330 MG IV (23:40)
[2023-11-30] VITALS (12 sets, daily range): BP systolic 105–136; BP diastolic 60–82; PULSE 86–108; RESP 16–18; TEMP 36.3–36.7; O2SAT 85–96; BMI 25.8
[2023-11-30] MEDS: Doxycycline 100 MG in Dextrose 5%-Water (250mL Bag) 250 ML 250 MG IV ×2 (00:18→11:34)
[2023-11-30] MEDS: Insulin Lispro 100 UNIT/ML INSULN.PEN SC ×5 (00:18→20:13)
[2023-11-30 00:45] LABS: Bedside Glucose 273 mg/dL (74-106)
[2023-11-30 06:35] LABS: Bedside Glucose 269 mg/dL (74-106)
[2023-11-30 06:38] LABS: Absolute Lymphocyte Count 0.58 X10^3/uL (0.83-4.51); Absolute Neutrophil Count 7.9 X10^3/uL (2.0-7.7); Basophil# 0.01 X10^3/uL; Basophil% 0.1 % (0-1); Hematocrit 41.1 % (37-47); Hemoglobin 13.4 g/dL (12.0-15.0); Lymphocyte # 0.58 X10^3/ul (0.83-4.51); Lymphocyte % 6.7 % (19-41); Mean Corp Hgb Conc 32.6 g/dL (32-36); Mean Corpuscular Hgb 29.9 pg (27.0-32.0); Mean Corpuscular Volume 91.7 fL (81-99); Mean Platelet Vol. 10.1 fl (6.2-12.0); Monocyte# 0.09 X10^3/uL; NRBC Flagged by Analyzer 0 % (0-5); Neutrophil # 7.86 X10^3/uL (2.7-7.7); Neutrophil % 91.2 % (47-70); POSITIVE DIFFERENTIAL YES; Platelet Count 188 K/mm3 (150-450); RBC Distribution Width CV 13.5 % (11.6-14.6); RBC Distribution Width SD 45.8 fl (35.1-43.9); Red Blood Count 4.48 M/mm3 (4.2-5.4); White Blood Count 8.6 K/mm3 (4.4-11.0)
[2023-11-30] MEDS: Ipratropium/Albuterol Sulfate 3 ML AMPUL.NEB INHALATION ×3 (06:59→19:30)
[2023-11-30] MEDS: Budesonide Respules 0.5 MG/2 ML AMPUL.NEB. INHALATION ×2 (06:59→19:30)
[2023-11-30 07:24] LABS: ALB/GLOB Ratio 0.7 RATIO (0.9-2.4); AST(SGOT) 11 U/L (15-37); Alanine Aminotransfer ALT/SGPT 16 U/L (13-56); Albumin, Serum 2.5 g/dL (3.2-5.0); Alkaline Phosphatase 59 U/L (45-117); Anion Gap 5 (5-15); BUN 12 mg/dL (7-18); BUN/Creat Ratio 21.9 RATIO (10-20); Calcium,Total 9.3 mg/dL (8.5-10.1); Chloride 105 mmol/L (98-107); Creatinine, Serum 0.55 mg/dL (0.55-1.02); EST Glomerular Filtration Rate 113 mL/min (>60); Est Glom Filt Rate - Afr Amer 137 mL/min (>60); Estimated Creatinine Clearance 49.54 ml/min; Globulin 3.8 g/dL (2.2-4.2); Glucose 299 mg/dL (74-106); Magnesium 1.9 mg/dL (1.6-2.6); Potassium 4.1 mmol/L (3.5-5.1); Protein, Total 6.3 g/dL (6.4-8.2); Sodium Level 137 mmol/L (136-145); Thyroid Stim Hormone (TSH) 0.12 uIU/mL (0.358-3.74)
[2023-11-30 07:48] LABS: Hemoglobin A1c 10.1 % (3.8-5.6)
--- NOTE | 2023-11-30 09:11 | PCM.PN.HOSP ---
Reason for Visit Reason for Visit: Diagnoses Acute bronchitis, unspecified (11/29/23) Other specified chronic obstructive pulmonary disease (11/29/23) Gastritis, unspecified, without bleeding (11/29/23) Gastroduodenitis, unspecified, without bleeding (11/29/23) Liver disease, unspecified (11/29/23) Other abnormalities of breathing (11/29/23) Objective Data Objective Data Vital Signs: Vital Signs Temp Pulse Resp BP Pulse Ox O2 Del Method O2 Flow Rate 97.4 F L 101 H 18 131/71 H 93 Nasal Cannula 4 11/30/23 08:06 11/30/23 08:06 11/30/23 08:06 11/30/23 08:06 11/30/23 08:06 11/30/23 08:28 11/30/23 08:06 Oxygen Flow Rate (L/min) 4 Oxygen Delivery Method Nasal Cannula Weight: 145 lb 11.609 oz Body Mass Index (BMI) 25.8 Intake & Output: Intake and Output for Last 24 Hours 11/28/23 11/29/23 11/30/23 23:59 23:59 23:59 Intake Total 370 / 370 Balance 370 / 370 Lab / Micro Data 11/30/23 05:55 11/30/23 05:55 Labs: Laboratory Results - last 24 hr 11/29/23 17:35: WBC 16.8 H, RBC 4.92, Hgb 14.5, Hct 45.3, MCV 92.1, MCH 29.5, MCHC 32.0, RDW Std Deviation 46.8 H, RDW Coeff of Prerna 13.8, Plt Count 221, MPV 10.8, Immature Gran % (Auto) 0.600, Neut % (Auto) 82.9 H, Lymph % (Auto) 7.3 L, Schoolcraft % (Auto) 6.4, Eos % (Auto) 2.3, Baso % (Auto) 0.5, Absolute Neuts (auto) 14.0 H, Absolute Lymphs (auto) 1.22, Nucleated RBC % 0, Sodium 136, Potassium 4.4, Chloride 102, Carbon Dioxide 27.0, Anion Gap 7, BUN 10, Creatinine 0.64, Estim Creat Clear Calc 49.67, Est GFR (MDRD) Af Amer 115, Est GFR (MDRD) Non-Af 95, BUN/Creatinine Ratio 15.7, Glucose 236 H, Calcium 10.0, Total Bilirubin 0.90, AST 18, ALT 19, Alkaline Phosphatase 65, Troponin I High Sens 8, B-Natriuretic Peptide 9.9, Total Protein 6.9, Albumin 2.9 L, Globulin 4.0, Albumin/Globulin Ratio 0.7 L, Lipase 43 11/29/23 19:43: Urine Color Yellow, Urine Clarity Clear, Urine pH 5.0, Ur Specific Clayton 1.030, Urine Protein 30 H, Urine Glucose (UA) 250 H, Urine Ketones 50 H, Urine Occult Blood 10 H, Urine Nitrite Negative, Urine Bilirubin 1 H, Urine Urobilinogen 1 H, Ur Leukocyte Esterase 100 H, Urine RBC 0 SEEN, Urine WBC 0-5 SEEN, Ur Squamous Epith Cells 0-5 SEEN, Calcium Oxalate Crystal 1+, Urine Bacteria 0 SEEN, Urine Mucus 2+ 11/30/23 00:08: POC Glucose 273 H 11/30/23 05:55: WBC 8.6, RBC 4.48, Hgb 13.4, Hct 41.1, MCV 91.7, MCH 29.9, MCHC 32.6, RDW Std Deviation 45.8 H, RDW Coeff of Prerna 13.5, Plt Count 188, MPV 10.1, Immature Gran % (Auto) 1.000 H, Neut % (Auto) 91.2 H, Lymph % (Auto) 6.7 L, Schoolcraft % (Auto) 1.0, Eos % (Auto) 0.0, Baso % (Auto) 0.1, Absolute Neuts (auto) 7.9 H, Absolute Lymphs (auto) 0.58 L, Nucleated RBC % 0, Sodium 137, Potassium 4.1, Chloride 105, Carbon Dioxide 27.0, Anion Gap 5, BUN 12, Creatinine 0.55, Estim Creat Clear Calc 49.54, Est GFR (MDRD) Af Amer 137, Est GFR (MDRD) Non-Af 113, BUN/Creatinine Ratio 21.9 H, Glucose 299 H, Hemoglobin A1c 10.1 H, Calcium 9.3, Phosphorus 3.0, Magnesium 1.9, Total Bilirubin 0.60, AST 11 L, ALT 16, Alkaline Phosphatase 59, Total Protein 6.3 L, Albumin 2.5 L, Globulin 3.8, Albumin/Globulin Ratio 0.7 L, TSH 0.12 L 11/30/23 06:01: POC Glucose 269 H Micro: Microbiology 11/29/23 19:38 Mucosa - Nose SARS-CoV-2, Influenza & RSV (PCR) - Final Radiography Diagnostic Testing: Radiology Impression Chest X-Ray 11/29/23 18:43 IMPRESSION: Degenerative changes, as described above. No demonstrated acute cardiopulmonary process. Electronically Signed: Eddie Quan MD at 19:38 EDT Reading Location ID and State: [facility] / [place] , Service support , Chest CTA 11/29/23 19:10 IMPRESSION: CTA chest examination, without a demonstrated pulmonary embolism or arterial dissection. Emphysema and fibrotic densities. Electronically Signed: Eddie Quan MD at 20:46 EDT Reading Location ID and State: [address] [place] [address] , Service support , Gallbladder Ultrasound 11/29/23 20:19 IMPRESSION: Gallstone. Sludge in the gallbladder. No biliary dilation. Nonspecific hypoechoic mass in the left lobe of the liver. Consider follow-up MRI for further characterization. Electronically Signed: Eddie Quan MD at 21:14 EDT Reading Location ID and State: [facility] / [place] , Service support , Physical Exam Narrative Patient has multiple complaints. Patient admitted with shortness of breath that started 2 to 3 days ago along with cough and dyspnea exertion. She also had lower epigastric/RUQ burning sharp abdominal pain about 4 weeks ago with dyspepsia and epigastric burning not getting better with PPI. She is diagnosed COPD and quit smoking about 27 years ago. No fever. Denies any acute change in bowel movement Physical exam General: Alert, Oriented x3, Cooperative HEENT: Atraumatic, PERRLA, EOMI, Normocephalic Oral: No Gingival or Mucosal Lesions/ Ulcerations Neck: Supple, No JVD, Negative Carotid Bruits Chest wall/Lungs: Air entry diminished in bilateral lung bases. Bilateral expiratory rhonchi present. Cardiovascular: Regular rate, Regular Rhythm, Normal S1, Normal S2, No M/G/R Abdomen: Bowel Sounds Present, Soft, tenderness present over epigastric region/RUQ. : No dysuria. No renal angle tenderness. No suprapubic tenderness. Extremities: No edema, Capillary Refill Less than 3 Seconds Skin: No rashes, No breakdown Musculoskeletal: No Tenderness to Palpation of Joints or Extremities Neurological: Cranial nerves II-XII grossly intact, DTR 2+/4. No acute focal neurological deficit. Psych/Mental Status: Flat affect. Assessment & Plan Assessment/Plan (1) Asthma-COPD overlap syndrome: (2) Gastritis and gastroduodenitis: (3) Liver lesion, left lobe: PLAN: Plan 83-year-old female came to ED with dyspepsia and epigastric burning for couple of weeks, hypoxia 87%, weak and shortness of breath. On PPI and plan for reevaluation in 4 weeks but was not helping her therefore discontinued it. Patient also has been chronically nausea dyspeptic symptoms. She was recently treated for COPD exacerbation over the last few weeks and has been on prednisone. No chest pain 1. mild acute exacerbation of asthma/COPD overlap syndrome due to acute bronchitis- Admit to general medical floor. Patient is being managed on scheduled bronchodilator, IV Solu-Medrol, Mucinex, incentive spirometry and Pep. Doxycycline. Patient history of remote smoking quit about 27 years ago. Had history of pneumonia in the past. 2. Lower epigastric/right upper quadrant abdominal pain for about 4 weeks possible chronic cholecystitis with cholelithiasis: Patient had EGD many years ago, more than 10 years and was told was good. IV PPI every 12 hourly. GI consulted for EGD. Limited ultrasound shows increased liver echogenicity with fatty infiltrated. GB wall 2 mm, no PC fluid. Solitary echogenic gallstone with gallbladder sludge. CBD 4 mm. Normal size and echogenicity of pancreas. No demonstrated pancreatic mass. Liver chemistry normal limit limit except hypoalbuminemia. Total bilirubin 0.6. 3. Incidentally noted hypoechoic 2.7 x 2.4 cm mass in the left lobe of the liver:-MRI abdomen with and without contrast, triple phase HCC protocol ordered. AFP ordered. 4. Essential hypertension - Give IV hydralazine as needed for systolic blood pressure greater than 160 mmHg. 5. Hyperlipidemia -hold statin for now. 6. DM-2; of unknown control on Metformin - Keep n.p.o. for now. Hold Metformin. Accu-Chek before meals and at bedtime insulin coverage Humalog sliding scale. 7. OA - Stable. Avoid NSAIDs. 8.low TSH: Patient does not have past medical history of hypothyroidism. TSH was done of unclear significance and indication and came out low. Possible due to euthyroid syndrome. Will need repeat TSH and free T4 after 6 weeks DVT prophylaxis, moderate to high risk- SCDs. Pharmacological prophylaxis after EGD to rule out any large gastric ulcer or bleeding Total time of the visit including total time spent in counseling or coordination of care, (more than 50% of the total time, spent in obtaining medical information from nurses and other ancillary care providers,explaining to the patient about labs, imaging, diagnosis and management of active complex medical conditions), discussion with the modular set crew member and surgeon, multiple active follow-up including COPD exacerbation, cholecystitis with cholelithiasis, liver mass, review of labs and imaging is 40 minutes. Clinical Impression(s) from Imaging Studies Chest X-Ray 11/29/23 18:43 IMPRESSION: Degenerative changes, as described above. No demonstrated acute cardiopulmonary process. Electronically Signed: Eddie Quan MD at 19:38 EDT , Chest CTA 11/29/23 19:10 IMPRESSION: CTA chest examination, without a demonstrated pulmonary embolism or arterial dissection. Emphysema and fibrotic densities. Electronically Signed: Eddie Quan MD at 20:46 EDT , Gallbladder Ultrasound 11/29/23 20:19 IMPRESSION: Gallstone. Sludge in the gallbladder. No biliary dilation. Nonspecific hypoechoic mass in the left lobe of the liver. Consider follow-up MRI for further characterization. Electronically Signed: Eddie Quan MD at 21:14 EDT , Total time: Approximately 55 minutes. Charges/Coding Visit Charges Inpatient E&M: 31952 Subs Hosp L3
--- NOTE | 2023-11-30 09:15 | MRI_ITS ---
STUDY: MRI ABDOMEN WITH AND WITHOUT CONTRAST REASON FOR EXAM: Female, 83 years old. Hypoechoic 2.7 x 2.4 cm mass in the liver. TECHNIQUE: Standardized fat and water weighted pulse sequences were obtained in all 3 orthogonal planes post contrast administration. IV 12 cc clariscan was administered for the contrast portion of the examination. COMPARISON: CTA of the chest dated November 29, 2023 FINDINGS: Subsegmental atelectasis or fibrosis is present in the right lower lobe with a trace pleural effusion. Liver: 2.29 cm simple cyst is present in the dome of the far lateral aspect of the left lobe of the liver seen on image 9/24 series 4. This lesion does not enhance as seen on image 38/108 series 1001 which is the postcontrast sequence. Otherwise the liver is normal in size and contour. Arterial portal shunting is seen in several regions of the right lobe of the liver which is of no clinical significance. Gallbladder: A large 2.79 cm stone is present and neck of the gallbladder. Several smaller stones are seen in the fundus of the gallbladder. No gallbladder wall thickening or pericholecystic fluid is seen on this study. No intrahepatic or extrahepatic biliary ductal dilatation is present. Normal spleen. Normal pancreas. There is a well circumscribed, round mass lesion of the left adrenal gland with hyperintense signal on the T1W1 gradient-echo in phase images as compared to the spleen with signal loss on the T1W1 gradient-echo opposed phase images consistent with a lipid rich adrenal adenoma. There is mild cortical atrophy of the right kidney, consistent with chronic medical renal disease. There is mild cortical atrophy of the left kidney, consistent with chronic medical renal disease. Normal visualized stomach. Normal small intestine. Normal colon. No demonstrated abdominal aortic aneurysm. Normal inferior vena cava. Normal retroperitoneum. Normal abdominal wall. There are diffuse degenerative changes of the visualized lumbar spine. MRI/MRI Abd WITH and W/O Contrast IMPRESSION: Cholelithiasis 1. Gallbladder: A large 2.79 cm stone is present and neck of the gallbladder. Several smaller stones are seen in the fundus of the gallbladder. No gallbladder wall thickening or pericholecystic fluid is seen on this study. No intrahepatic or extrahepatic biliary ductal dilatation is present. 2. Liver: 2.29 cm simple cyst is present in the dome of the far lateral aspect of the left lobe of the liver seen on image 9/24 series 4. This lesion does not enhance as seen on image 38/108 series 1001 which is the postcontrast sequence. Otherwise the liver is normal in size and contour. Electronically Signed: Robbie Harrison MD at 14:24 EDT ,
--- NOTE | 2023-11-30 10:00 | CASEMGMT ---
RN CM WEB DEVELOPMENT CONSULTANT CM to room to meet w/pt for initial transition planning/care coordination assessment. RN?CM?introduced self and role at [facility].? Pt voices understanding and consents to?assessment?at this time.? Pt resting in bed in no distress at this time.? @ bedside. Pt is A/O at this time and answers all questions appropriately.?? Care providers, pharmacy, and demographics verified/updated at this time. PCP: Dr. Salazar Specialists: Felicia Patterson, JERED--pulmonology. Pt goes to a throat specialist at [facility]--pt does not remember name and sees Mila Christensen [facility]. Preferred Pharmacy: [facility] Insurance: [facility] A/B, [facility] Prescription Benefit: Yes Living Will/HPOA: Pt has both LW and HCPOA, who is her daughter, Leigh Ann Story LNOK: , Marco. Daughter, Leigh Ann (only child) Living Arrangements: Pt lives with her in a two story home with no steps to enter. FFSU. Pt is independent with all ADL's. Pt and share home mgnt tasks. is able to assist if needed. Transportation: Both pt and drive. DME: Pt has functioning glucometer w/supplies. Pt states she just got it a month ago. Pt also has a nebulizer and pulse ox. No home O2. She has had O2 in the past from [employer] and would like to get from them again if O2 needed @ dc. SNF/HHC: No hx of either. No needs identified. Pt wishes to return home and states has no concerns with going home at time of discharge.? CM?to follow for home oxygen needs and any further discharge planning/needs.? PLAN:??Home. Follow for possible Home O2 @ d/c. Edilma SANTAMARIA?RN?CM
[2023-11-30] MEDS: 0.9% Saline Lock 10 ML Syringe IV ×2 (10:13→13:49)
[2023-11-30] MEDS: LORazepam 2 MG/ML Syringe 0.5 MG IV (10:13)
[2023-11-30 12:01] LABS: Bedside Glucose 265 mg/dL (74-106)
[2023-11-30] MEDS: Pantoprazole Sodium 40 MG in 0.9% Normal Saline (100mL MB+) 100 ML 330 MG IV ×2 (12:44→20:14)
--- NOTE | 2023-11-30 15:38 | CHAPLAIN ---
Type of Pastoral Visit _x__ Initial Visit ___ Follow-up Visit ___ On-call Visit ___ General Patient Visit ___ Spiritual Assessment ___ Family Conference ___ Bereavement ___ Rapid Response ___ Code Blue ___ Other (describe below) Pastoral Care Referral From _x__ Patient ___ Family ___ Nurse ___ Physician ___ Charging Operator ___ Director Of Patient Financial Services ___ Other (describe below) Sacrament/Intervention _x__ Active listening ___ Anointing ___ Yarsanism ___ Bereavement ___ Communion ___ Janet exploration ___ ___ Life review _x__ Prayer ___ Reconciliation ___ Sacrament of Sick _x__ Supportive presence ___ Wedding ___ Other (describe below) Pastoral Comments patient is resting quietly in bed with daughter at bedside; offer of support; pt states she is not even sure what I need; pt does welcome a prayer
[2023-11-30 16:26] LABS: Bedside Glucose 450 mg/dL (74-106)
--- NOTE | 2023-11-30 16:34 | NURSING ---
All documentation by clinical nursing instructor, Anh Enriquez, reviewed by certified nursing attendant, Mary Lou DAVIDSONN, RN.
--- NOTE | 2023-11-30 16:38 | PCM.PN.BLA ---
Progress Note Pt daughter, Leigh Ann, requested another one of my colleagues to see her mom. Will see her tomorrow. d/w Dr. Duran/Dr. Flores
[2023-11-30] MEDS: Insulin Lispro 100 UNIT/ML INSULN.PEN 8 UNIT SC (16:43)
[2023-11-30] MEDS: 0.9% Normal Saline (1000mL) 1,000 ML 70 ML IV (17:16)
--- NOTE | 2023-11-30 17:30 | EX.PCM.CON.G ---
HPI Consult Data Date of Consult: 11/30/23 HPI Narrative Reason for Consultation: Abdominal pain HPI Narrative: XANDER SORTO, is a 83 F with a past medical history of essential hypertension, hyperlipidemia, history of tobacco abuse; with subsequent asthma/COPD overlap syndrome, DM-2; of unknown control on Metformin, history of pneumonia, GERD; with remote history of PUD (~50 years ago) and OA who presents to [facility] ER complaining of burning upper abdominal pain and shortness of breath. Ms. Sorto reports her symptoms began approximately four weeks prior to admission with complaints of dyspepsia and epigastric burning. She explained that she was seen in May [address] Salazar for severe GERD symptoms and was put on omeprazole. Upon reevaluation approximately 4 weeks ago she had not had significant lasting improvement in her symptoms and was told to discontinue this agent if it was not helping. She states that her symptoms did improve briefly but then recurred with severe burning sensation in her epigastrium with that is constant with intermittent nausea that is not related to food. She denies associated fever, chills, vomiting or chest pain but she does admit to shortness of breath with dyspnea on exertion with an oxygen saturation of ~80% from percent on room air noted today. She also denies right upper quadrant pain or jaundice but she does admit her pain and dyspepsia are similar to her previous PUD. In the ER she was diagnosed with suspected acute bronchitis with mild acute exacerbation of asthma/COPD overlap syndrome complicated by acute respiratory insufficiency along with suspected adverse drug reaction to NSAIDs and steroids causing suspected gastritis with possible peptic ulcer disease plus gallbladder ultrasound positive for sludge and hypoechoic mass in the left lobe of the liver incidentally noted on CT. 11/29/23- WBC 16.8 H, RBC 4.92, Hgb 14.5, Hct 45.3, MCV 92.1, MCH 29.5, MCHC 32.0, RDW Std Deviation 46.8 H, RDW Coeff of Prerna 13.8, Plt Count 221, MPV 10.8, Immature Gran % (Auto) 0.600, Neut % (Auto) 82.9 H, Lymph % (Auto) 7.3 L, [place] % (Auto) 6.4, Eos % (Auto) 2.3, Baso % (Auto) 0.5, Absolute Neuts (auto) 14.0 H, Absolute Lymphs (auto) 1.22, Nucleated RBC % 0, Sodium 136, Potassium 4.4, Chloride 102, Carbon Dioxide 27.0, Anion Gap 7, BUN 10, Creatinine 0.64, Estim Creat Clear Calc 49.67, Est GFR (MDRD) Af Amer 115, Est GFR (MDRD) Non-Af 95, BUN/Creatinine Ratio 15.7, Glucose 236 H, Calcium 10.0, Total Bilirubin 0.90, AST 18, ALT 19, Alkaline Phosphatase 65, Troponin I High Sens 8, B-Natriuretic Peptide 9.9, Total Protein 6.9, Albumin 2.9 L, Globulin 4.0, Albumin/Globulin Ratio 0.7 L, Lipase 43 CTA of the chest IMPRESSION: CTA chest examination, without a demonstrated pulmonary embolism or arterial dissection. Emphysema and fibrotic densities. Gallbladder ultrasound IMPRESSION: Gallstone. Sludge in the gallbladder. No biliary dilation. Nonspecific hypoechoic mass in the left lobe of the liver. Consider follow-up MRI for further characterization. Abdominal MRI Gallbladder: A large 2.79 cm stone is present and neck of the gallbladder. Several smaller stones are seen in the fundus of the gallbladder. No gallbladder wall thickening or pericholecystic fluid is seen on this study. No intrahepatic or extrahepatic biliary ductal dilatation is present. Liver: 2.29 cm simple cyst is present in the dome of the far lateral aspect of the left lobe of the liver seen on image 9/24 series 4. This lesion does not enhance as seen on image 38/108 series 1001 which is the postcontrast sequence. Otherwise the liver is normal in size and contour. [facility] Medical History Bronchopneumonia COPD, group C, by GOLD 2017 classification Diabetes History of fracture of left ankle Home Medications albuterol sulfate 90 mcg/actuation aerosol inhaler 2 puff inhalation Q4H PRN SOB 08/24/22 [History Last Taken 08/24/22] atorvastatin 20 mg tablet 20 mg PO DAILY 08/24/22 [History Last Taken 08/24/22] clobetasol 0.05 % topical cream 1 applic topical BID PRN Rash 08/24/22 [History Last Taken 1 Week Ago ~08/17/22] multivitamin 1 tab PO DAILY SUPPLEMENT 08/24/22 [History Last Taken 08/24/22] diltiazem HCl 120 mg capsule,24 hr,extended release 120 mg PO QDAY 11/07/23 [History Last Taken Unknown] fluticasone fur. 200 mcg-umeclid 62.5 mcg-vilant 25 mcg inhalat.powder (Trelegy Ellipta) 1 inh inhalation DAILY #60 ea 11/07/23 [Rx Last Taken Unknown] metformin 500 mg tablet 500 mg PO BID 11/07/23 [History Last Taken Unknown] albuterol sulfate 2.5 mg/3 mL (0.083 %) solution for nebulization 2.5 mg inhalation Q4H PRN PRN wheezing 11/29/23 [History Last Taken Unknown] Allergy/AdvReac Type Severity Reaction Status Date / Time No Known Allergies Allergy Verified 11/07/23 12:41 Social History Smoking Status: Former smoker Tobacco: How many years used: 50 ROS ROS Narrative Review of systems: General: Patient denies fever or chills. HENT: Denies headache, denies stuffy nose, denies sore throat EYES: Denies changes in vision or discharge from eyes. Resp: Patient admits to shortness of breath with nonproductive cough as per HPI. Cardiac: Denies chest pain or palpitations. GI: Patient admits to abdominal pain that is burning in the epigastrium with intermittent nausea as per HPI. : Denies changes in urination Extremity: Denies swelling Musculoskeletal: Patient denies arthralgias or myalgias. Neuro: Patient denies headache, paresthesias or focal neurologic weakness. Heme: Denies any bleeding or bruising Skin: Denies rashes or jaundice. Psychiatric: No complaints voiced related to uncontrolled depression or anxiety. Endocrine: No polyuria, polydipsia or polyphagia. The rest of the 14 point ROS was negative except for positives in HPI. Physical Exam Narrative She also had lower epigastric/RUQ burning sharp abdominal pain about 4 weeks ago with dyspepsia and epigastric burning not getting better with PPI. Physical exam General: Alert, Oriented x3, Cooperative HEENT: Atraumatic, PERRLA, EOMI, Normocephalic Oral: No Gingival or Mucosal Lesions/ Ulcerations Neck: Supple, No JVD, Negative Carotid Bruits Chest wall/Lungs: Air entry diminished in bilateral lung bases. Bilateral expiratory rhonchi present. Cardiovascular: Regular rate, Regular Rhythm, Normal S1, Normal S2, No M/G/R Abdomen: Bowel Sounds Present, Soft, tenderness present over epigastric region/RUQ. : No dysuria. No renal angle tenderness. No suprapubic tenderness. Extremities: No edema, Capillary Refill Less than 3 Seconds Skin: No rashes, No breakdown Musculoskeletal: No Tenderness to Palpation of Joints or Extremities Neurological: Cranial nerves II-XII grossly intact, DTR 2+/4. No acute focal neurological deficit. Psych/Mental Status: Flat affect. Lab / Micro Data 11/30/23 05:55 11/30/23 05:55 Labs: Laboratory Results - last 24 hr 11/29/23 17:35: WBC 16.8 H, RBC 4.92, Hgb 14.5, Hct 45.3, MCV 92.1, MCH 29.5, MCHC 32.0, RDW Std Deviation 46.8 H, RDW Coeff of Prerna 13.8, Plt Count 221, MPV 10.8, Immature Gran % (Auto) 0.600, Neut % (Auto) 82.9 H, Lymph % (Auto) 7.3 L, [place] % (Auto) 6.4, Eos % (Auto) 2.3, Baso % (Auto) 0.5, Absolute Neuts (auto) 14.0 H, Absolute Lymphs (auto) 1.22, Nucleated RBC % 0, Sodium 136, Potassium 4.4, Chloride 102, Carbon Dioxide 27.0, Anion Gap 7, BUN 10, Creatinine 0.64, Estim Creat Clear Calc 49.67, Est GFR (MDRD) Af Amer 115, Est GFR (MDRD) Non-Af 95, BUN/Creatinine Ratio 15.7, Glucose 236 H, Calcium 10.0, Total Bilirubin 0.90, AST 18, ALT 19, Alkaline Phosphatase 65, Troponin I High Sens 8, B-Natriuretic Peptide 9.9, Total Protein 6.9, Albumin 2.9 L, Globulin 4.0, Albumin/Globulin Ratio 0.7 L, Lipase 43 11/29/23 19:43: Urine Color Yellow, Urine Clarity Clear, Urine pH 5.0, Ur Specific [place] 1.030, Urine Protein 30 H, Urine Glucose (UA) 250 H, Urine Ketones 50 H, Urine Occult Blood 10 H, Urine Nitrite Negative, Urine Bilirubin 1 H, Urine Urobilinogen 1 H, Ur Leukocyte Esterase 100 H, Urine RBC 0 SEEN, Urine WBC 0-5 SEEN, Ur Squamous Epith Cells 0-5 SEEN, Calcium Oxalate Crystal 1+, Urine Bacteria 0 SEEN, Urine Mucus 2+ 11/30/23 00:08: POC Glucose 273 H 11/30/23 05:55: WBC 8.6, RBC 4.48, Hgb 13.4, Hct 41.1, MCV 91.7, MCH 29.9, MCHC 32.6, RDW Std Deviation 45.8 H, RDW Coeff of Prerna 13.5, Plt Count 188, MPV 10.1, Immature Gran % (Auto) 1.000 H, Neut % (Auto) 91.2 H, Lymph % (Auto) 6.7 L, [place] % (Auto) 1.0, Eos % (Auto) 0.0, Baso % (Auto) 0.1, Absolute Neuts (auto) 7.9 H, Absolute Lymphs (auto) 0.58 L, Nucleated RBC % 0, Sodium 137, Potassium 4.1, Chloride 105, Carbon Dioxide 27.0, Anion Gap 5, BUN 12, Creatinine 0.55, Estim Creat Clear Calc 49.54, Est GFR (MDRD) Af Amer 137, Est GFR (MDRD) Non-Af 113, BUN/Creatinine Ratio 21.9 H, Glucose 299 H, Hemoglobin A1c 10.1 H, Calcium 9.3, Phosphorus 3.0, Magnesium 1.9, Total Bilirubin 0.60, AST 11 L, ALT 16, Alkaline Phosphatase 59, Total Protein 6.3 L, Albumin 2.5 L, Globulin 3.8, Albumin/Globulin Ratio 0.7 L, TSH 0.12 L 11/30/23 06:01: POC Glucose 269 H 11/30/23 11:33: POC Glucose 265 H 11/30/23 16:01: POC Glucose 450 H Micro: Microbiology 11/29/23 19:38 Mucosa - Nose SARS-CoV-2, Influenza & RSV (PCR) - Final Imaging Radiology Impression Chest X-Ray 11/29/23 18:43 IMPRESSION: Degenerative changes, as described above. No demonstrated acute cardiopulmonary process. Electronically Signed: Eddie Quan MD at 19:38 EDT , Chest CTA 11/29/23 19:10 IMPRESSION: CTA chest examination, without a demonstrated pulmonary embolism or arterial dissection. Emphysema and fibrotic densities. Electronically Signed: Eddie Quan MD at 20:46 EDT , Gallbladder Ultrasound 11/29/23 20:19 IMPRESSION: Gallstone. Sludge in the gallbladder. No biliary dilation. Nonspecific hypoechoic mass in the left lobe of the liver. Consider follow-up MRI for further characterization. Electronically Signed: Eddie Quan MD at 21:14 EDT , Abdomen MRI 11/30/23 09:15 IMPRESSION: Cholelithiasis 1. Gallbladder: A large 2.79 cm stone is present and neck of the gallbladder. Several smaller stones are seen in the fundus of the gallbladder. No gallbladder wall thickening or pericholecystic fluid is seen on this study. No intrahepatic or extrahepatic biliary ductal dilatation is present. 2. Liver: 2.29 cm simple cyst is present in the dome of the far lateral aspect of the left lobe of the liver seen on image 9/24 series 4. This lesion does not enhance as seen on image 38/108 series 1001 which is the postcontrast sequence. Otherwise the liver is normal in size and contour. Electronically Signed: Robbie Harrison MD at 14:24 EDT , Assessment & Plan Assessment/Plan (1) Asthma-COPD overlap syndrome: (2) Acute bronchitis: QUALIFIERS: Bronchitis organism: unspecified organism Qualified Code(s): J20.9 - Acute bronchitis, unspecified (3) Respiratory insufficiency: (4) Gastritis and gastroduodenitis: (5) Liver lesion, left lobe: PLAN: Plan 83-year-old with past medical history of COPD, emphysema, hypertension, type 2 diabetes presents with : Acute bronchitis with mild acute exacerbation of asthma/COPD overlap syndrome -she is on medical therapy and being followed by primary service. She is in no respiratory distress at this time. Differential diagnosis for her burning abdominal pain is adverse drug reaction to NSAIDs and steroids causing suspected gastritis with possible recurrent peptic ulcer disease in the setting of known GERD refractory to treatment with oral Protonix as outpatient with persistent burning pain in epigastrium complicating. Recommend an upper endoscopy to evaluate upper GI tract. Hypoechoic lesion in the left lobe of the liver is a simple cyst. This size and the location did not dictate the need to do anything about it at this time. Ultrasound follow-up as an outpatient. Gallbladder sludge due to microlithiasis evident on ultrasound along with a very large stone in the neck of the gallbladder- Noted. Patient is being seen by surgical services. Charges/Coding Visit Charges Inpatient E&M: 08784 Init Hosp L3
[2023-11-30] MEDS: Insulin Glargine-YFGN 100 UNIT/ML Pen 10 UNIT SC (20:13)
[2023-11-30] MEDS: Doxycycline 100 MG CAPSULE PO (20:15)
[2023-11-30 22:38] LABS: Bedside Glucose 370 mg/dL (74-106)
[2023-12-01] VITALS (10 sets, daily range): BP systolic 98–140; BP diastolic 59–82; PULSE 76–108; RESP 16–25; TEMP 36.2–36.7; O2SAT 94–98; BMI 27.8
[2023-12-01 03:07] LABS: AFP, Tumor Marker 1.9 ng/mL (0.0-8.7)
[2023-12-01] MEDS: 0.9% Normal Saline (1000mL) 1,000 ML 70 ML IV (06:00)
[2023-12-01 06:23] LABS: Absolute Lymphocyte Count 0.77 X10^3/uL (0.83-4.51); Absolute Neutrophil Count 16.2 X10^3/uL (2.0-7.7); Basophil# 0.04 X10^3/uL; Basophil% 0.2 % (0-1); Hemoglobin 12.4 g/dL (12.0-15.0); Lymphocyte # 0.77 X10^3/ul (0.83-4.51); Lymphocyte % 4.3 % (19-41); Mean Corp Hgb Conc 31.8 g/dL (32-36); Mean Corpuscular Hgb 29.6 pg (27.0-32.0); Mean Corpuscular Volume 93.1 fL (81-99); Mean Platelet Vol. 10.4 fl (6.2-12.0); Monocyte# 0.59 X10^3/uL; Monocyte% 3.3 % (0-10); NRBC Flagged by Analyzer 0 % (0-5); Neutrophil % 91.3 % (47-70); Platelet Count 211 K/mm3 (150-450); RBC Distribution Width CV 13.6 % (11.6-14.6); RBC Distribution Width SD 45.7 fl (35.1-43.9); Red Blood Count 4.19 M/mm3 (4.2-5.4); White Blood Count 17.8 K/mm3 (4.4-11.0)
[2023-12-01] MEDS: Budesonide Respules 0.5 MG/2 ML AMPUL.NEB. INHALATION ×2 (07:14→19:20)
[2023-12-01] MEDS: Ipratropium/Albuterol Sulfate 3 ML AMPUL.NEB INHALATION ×2 (07:14→19:19)
[2023-12-01 07:27] LABS: ALB/GLOB Ratio 0.7 RATIO (0.9-2.4); AST(SGOT) 12 U/L (15-37); Alanine Aminotransfer ALT/SGPT 18 U/L (13-56); Albumin, Serum 2.4 g/dL (3.2-5.0); Alkaline Phosphatase 53 U/L (45-117); Anion Gap -1 (5-15); BUN 13 mg/dL (7-18); BUN/Creat Ratio 27.5 RATIO (10-20); Calcium,Total 9.4 mg/dL (8.5-10.1); Chloride 108 mmol/L (98-107); Creatinine, Serum 0.47 mg/dL (0.55-1.02); EST Glomerular Filtration Rate 134 mL/min (>60); Est Glom Filt Rate - Afr Amer 162 mL/min (>60); Estimated Creatinine Clearance 51.29 ml/min; Globulin 3.3 g/dL (2.2-4.2); Glucose 299 mg/dL (74-106); Potassium 4.5 mmol/L (3.5-5.1); Protein, Total 5.7 g/dL (6.4-8.2); Sodium Level 139 mmol/L (136-145)
[2023-12-01] MEDS: Doxycycline 100 MG CAPSULE PO ×2 (08:32→22:56)
[2023-12-01] MEDS: Insulin Lispro 100 UNIT/ML INSULN.PEN SC ×3 (08:32→22:57)
[2023-12-01] MEDS: Insulin Lispro 100 UNIT/ML INSULN.PEN 8 UNIT SC (08:32)
[2023-12-01] MEDS: Pantoprazole Sodium 40 MG in 0.9% Normal Saline (100mL MB+) 100 ML 330 MG IV ×2 (08:45→22:50)
[2023-12-01 11:30] LABS: Bedside Glucose 205 mg/dL (74-106)
[2023-12-01] MEDS: 0.9% Saline Lock 10 ML Syringe IV ×2 (12:22→16:16)
--- NOTE | 2023-12-01 12:37 | EX.PCM.CON.S ---
Assessment & Plan Assessment/Plan (1) Cholelithiasis: PLAN: Patient is an 83-year-old female with a number of comorbidities including poorly controlled diabetes and COPD who is admitted for COPD exacerbation and related hypoxia. Surgery was asked to evaluate on the account of complaints of right upper quadrant and epigastric burning discomfort. Patient does have evidence of cholelithiasis both sonographically and by MRI, but there are no secondary signs of acute cholecystitis. Further, on exam, patient has no evidence of a positive Almazan sign. She is tender in the right upper quadrant and does bear evidence of a large gallstone in the gallbladder neck. Thus, I am inclined to make the diagnosis of symptomatic cholelithiasis with biliary colic and possible chronic cholecystitis. I have shared with patient and her family that there is a indication even in asymptomatic patients to consider cholecystectomy for patients with diabetes and those with gallstones greater than 2 to 3 cm. However, I also shared that I am concerned about proceeding with a laparoscopic cholecystectomy in the setting given patient's suboptimal respiratory status and uncontrolled diabetic status. I suggested that these issues be optimized prior to undertaking a laparoscopic cholecystectomy and went further to say that she may benefit from a tertiary?level facility for surgery where [id number] manager of hospital support is available in the event that she requires further optimization of her pulmonary status before extubation. Multiple conversations were held between myself, patient, patient and her daughter, and patient and her extended family. There is some dissatisfaction with patient's care and prior care of family members, but overall family states they understand my perspective and do wish to proceed with the scheduled EGD to evaluate for peptic ulcer disease. However, they wish for me to perform this study as an gastroenterology. Thus the operating room has been made aware of this personnel change and we will plan to proceed to the endoscopy suite at first availability to evaluate patient's upper GI anatomy. HPI Consult Data Date of Consult: 12/01/23 HPI Narrative Reason for Consultation: Concern for cholecystitis HPI Narrative: XANDER SORTO, is a 83 F who presented to [facility] on 11/29/2023 at the direction of her primary care provider for concerns of possible gallbladder disease as she had previously established as having cholelithiasis. She had complained for approximately 1 month of burning pain of her upper abdomen that was not necessarily related to food. She reportedly was placed on omeprazole with some relief of symptoms. Upon her evaluation in the ER, however, she was hypoxic with a SpO2 of 87% and was admitted to the hospitalist service for a COPD exacerbation. Given the concerns for for epigastric discomfort and possible gallbladder disease both general surgery and gastroenterology were consulted. Patient's workup to date includes a right upper quadrant ultrasound as well as an MRCP (at direction of the ultrasound to evaluate for a liver mass). In summary both studies show evidence of a solitary gallstone measuring up to 2.8 cm in diameter without evidence of cholecystitis given normal gallbladder wall dimensions, no evidence of pericholecystic fluid, and no biliary dilatation. Further, patient has had several CMP studies that have all shown her liver function testing to be within normal limits. Her WBC has been elevated on several CBC studies but she is also noted to be on prednisone for her pulmonary issues. Through discussions with patient and her family there is a history of COPD related to a [id number] smoking history. Patient states that she has not routinely on oxygen at home but did require it following a admission in June for pneumonia. She also confesses that her diabetes is not under the strict dyscontrol and that she does not routinely check her blood glucose levels. Her A1c is noted to be 10.1 at most recent check and her blood glucoses have ranged from 300-400 while inpatient. Patient has no history of abdominal surgery but family shares that there is a family history for GI?related malignancies including esophageal and throat. [facility] Medical History Bronchopneumonia COPD, group C, by GOLD 2017 classification Diabetes History of fracture of left ankle Home Medications albuterol sulfate 90 mcg/actuation aerosol inhaler 2 puff inhalation Q4H PRN SOB 08/24/22 [History Last Taken 08/24/22] atorvastatin 20 mg tablet 20 mg PO DAILY 08/24/22 [History Last Taken 08/24/22] clobetasol 0.05 % topical cream 1 applic topical BID PRN Rash 08/24/22 [History Last Taken 1 Week Ago ~08/17/22] multivitamin 1 tab PO DAILY SUPPLEMENT 08/24/22 [History Last Taken 08/24/22] diltiazem HCl 120 mg capsule,24 hr,extended release 120 mg PO QDAY 11/07/23 [History Last Taken Unknown] fluticasone fur. 200 mcg-umeclid 62.5 mcg-vilant 25 mcg inhalat.powder (Trelegy Ellipta) 1 inh inhalation DAILY #60 ea 11/07/23 [Rx Last Taken Unknown] metformin 500 mg tablet 500 mg PO BID 11/07/23 [History Last Taken Unknown] albuterol sulfate 2.5 mg/3 mL (0.083 %) solution for nebulization 2.5 mg inhalation Q4H PRN PRN wheezing 11/29/23 [History Last Taken Unknown] Allergy/AdvReac Type Severity Reaction Status Date / Time No Known Allergies Allergy Verified 11/07/23 12:41 Social History Smoking Status: Former smoker Tobacco: How many years used: 50 Physical Exam Narrative No acute distress, answers appropriately, cooperative, nasal cannula in place Const alert and oriented x3 General Appearance: cooperative GI GI Narrative: Overweight, nondistended, soft, tender to palpation in the right upper quadrant with negative Almazan sign Lab / Micro Data 12/01/23 05:45 12/01/23 05:45 Labs: Laboratory Results - last 24 hr 11/30/23 05:55: Tumor Marker AFP 1.9 11/30/23 16:01: POC Glucose 450 H 11/30/23 20:10: POC Glucose 370 H 12/01/23 05:45: WBC 17.8 H, RBC 4.19 L, Hgb 12.4, Hct 39.0, MCV 93.1, MCH 29.6, MCHC 31.8 L, RDW Std Deviation 45.7 H, RDW Coeff of Prerna 13.6, Plt Count 211, MPV 10.4, Immature Gran % (Auto) 0.900, Neut % (Auto) 91.3 H, Lymph % (Auto) 4.3 L, [place] % (Auto) 3.3, Eos % (Auto) 0.0, Baso % (Auto) 0.2, Absolute Neuts (auto) 16.2 H, Absolute Lymphs (auto) 0.77 L, Nucleated RBC % 0, Sodium 139, Potassium 4.5, Chloride 108 H, Carbon Dioxide 32.0, Anion Gap -1 L, BUN 13, Creatinine 0.47 L, Estim Creat Clear Calc 51.29, Est GFR (MDRD) Af Amer 162, Est GFR (MDRD) Non-Af 134, BUN/Creatinine Ratio 27.5 H, Glucose 299 H, Calcium 9.4, Total Bilirubin 0.40, AST 12 L, ALT 18, Alkaline Phosphatase 53, Total Protein 5.7 L, Albumin 2.4 L, Globulin 3.3, Albumin/Globulin Ratio 0.7 L 12/01/23 11:12: POC Glucose 205 H Imaging Radiology Impression Abdomen MRI 11/30/23 09:15 IMPRESSION: Cholelithiasis 1. Gallbladder: A large 2.79 cm stone is present and neck of the gallbladder. Several smaller stones are seen in the fundus of the gallbladder. No gallbladder wall thickening or pericholecystic fluid is seen on this study. No intrahepatic or extrahepatic biliary ductal dilatation is present. 2. Liver: 2.29 cm simple cyst is present in the dome of the far lateral aspect of the left lobe of the liver seen on image 9/24 series 4. This lesion does not enhance as seen on image 38/108 series 1001 which is the postcontrast sequence. Otherwise the liver is normal in size and contour. Electronically Signed: Robbie Harrison MD at 14:24 EDT , Charges/Coding Visit Charges Inpatient E&M: 89982 Init Hosp L2
--- NOTE | 2023-12-01 12:49 | PCM.PN.HOSP ---
Reason for Visit Reason for Visit: Diagnoses Acute bronchitis, unspecified (11/29/23) Other specified chronic obstructive pulmonary disease (11/29/23) Gastritis, unspecified, without bleeding (11/29/23) Gastroduodenitis, unspecified, without bleeding (11/29/23) Liver disease, unspecified (11/29/23) Other abnormalities of breathing (11/29/23) Objective Data Objective Data Vital Signs: Vital Signs Temp Pulse Resp BP Pulse Ox O2 Del Method O2 Flow Rate 97.4 F L 106 H 18 129/73 H 95 Nasal Cannula 3 12/01/23 12:27 12/01/23 12:27 12/01/23 12:27 12/01/23 12:27 12/01/23 12:27 12/01/23 12:27 12/01/23 12:27 Oxygen Flow Rate (L/min) 3 Oxygen Delivery Method Nasal Cannula Weight: 156 lb 15.506 oz Body Mass Index (BMI) 27.8 Intake & Output: Intake and Output for Last 24 Hours 11/29/23 11/30/23 12/01/23 23:59 23:59 23:59 Intake Total 1850.00 / 1850.00 1424.83 / 1424.83 Output Total 800 / 800 800 / 800 Balance 1050.00 / 1050.00 624.83 / 624.83 Lab / Micro Data 12/01/23 05:45 12/01/23 05:45 Labs: Laboratory Results - last 24 hr 11/30/23 05:55: Tumor Marker AFP 1.9 11/30/23 16:01: POC Glucose 450 H 11/30/23 20:10: POC Glucose 370 H 12/01/23 05:45: WBC 17.8 H, RBC 4.19 L, Hgb 12.4, Hct 39.0, MCV 93.1, MCH 29.6, MCHC 31.8 L, RDW Std Deviation 45.7 H, RDW Coeff of Prerna 13.6, Plt Count 211, MPV 10.4, Immature Gran % (Auto) 0.900, Neut % (Auto) 91.3 H, Lymph % (Auto) 4.3 L, [place] % (Auto) 3.3, Eos % (Auto) 0.0, Baso % (Auto) 0.2, Absolute Neuts (auto) 16.2 H, Absolute Lymphs (auto) 0.77 L, Nucleated RBC % 0, Sodium 139, Potassium 4.5, Chloride 108 H, Carbon Dioxide 32.0, Anion Gap -1 L, BUN 13, Creatinine 0.47 L, Estim Creat Clear Calc 51.29, Est GFR (MDRD) Af Amer 162, Est GFR (MDRD) Non-Af 134, BUN/Creatinine Ratio 27.5 H, Glucose 299 H, Calcium 9.4, Total Bilirubin 0.40, AST 12 L, ALT 18, Alkaline Phosphatase 53, Total Protein 5.7 L, Albumin 2.4 L, Globulin 3.3, Albumin/Globulin Ratio 0.7 L 12/01/23 11:12: POC Glucose 205 H Micro: Microbiology 11/29/23 19:38 Mucosa - Nose SARS-CoV-2, Influenza & RSV (PCR) - Final Radiography Diagnostic Testing: Radiology Impression Abdomen MRI 11/30/23 09:15 IMPRESSION: Cholelithiasis 1. Gallbladder: A large 2.79 cm stone is present and neck of the gallbladder. Several smaller stones are seen in the fundus of the gallbladder. No gallbladder wall thickening or pericholecystic fluid is seen on this study. No intrahepatic or extrahepatic biliary ductal dilatation is present. 2. Liver: 2.29 cm simple cyst is present in the dome of the far lateral aspect of the left lobe of the liver seen on image 9/24 series 4. This lesion does not enhance as seen on image 38/108 series 1001 which is the postcontrast sequence. Otherwise the liver is normal in size and contour. Electronically Signed: Robbie Harrison MD at 14:24 EDT , Physical Exam Narrative Patient has multiple complaints. Shortness of breath and cough is better. Still on 3 L of oxygen. Hyperglycemia due to IV Solu-Medrol even on increased insulin dose. Continue to have lower epigastric/RUQ abdominal pain though better about 4-5/10 intensity. On PPI. Plan for EGD today. P She is diagnosed COPD and quit smoking about 17 years ago. History of 50 pack years of smoking no fever. Denies any acute change in bowel movement Physical exam General: Alert, Oriented x3, Cooperative HEENT: Atraumatic, PERRLA, EOMI, Normocephalic Oral: No Gingival or Mucosal Lesions/ Ulcerations Neck: Supple, No JVD, Negative Carotid Bruits Chest wall/Lungs: Air entry diminished in bilateral lung bases. No rhonchi and wheezing has improved. Cardiovascular: Regular rate, Regular Rhythm, Normal S1, Normal S2, No M/G/R Abdomen: Bowel Sounds Present, Soft, tenderness present over epigastric region/RUQ. No distention. : No dysuria. No renal angle tenderness. No suprapubic tenderness. Extremities: No edema, Capillary Refill Less than 3 Seconds Skin: No rashes, No breakdown Musculoskeletal: No Tenderness to Palpation of Joints or Extremities Neurological: Cranial nerves II-XII grossly intact, DTR 2+/4. No acute focal neurological deficit. Psych/Mental Status: Flat affect. Assessment & Plan Assessment/Plan (1) Asthma-COPD overlap syndrome: (2) Gastritis and gastroduodenitis: (3) Liver lesion, left lobe: PLAN: Plan 83-year-old female came to ED with dyspepsia and epigastric burning for couple of weeks, hypoxia 87%, weak and shortness of breath. On PPI and plan for reevaluation in 4 weeks but was not helping her therefore discontinued it. Patient also has been chronically nausea dyspeptic symptoms. She was recently treated for COPD exacerbation over the last few weeks and has been on prednisone. No chest pain 1. Acute exacerbation of asthma/COPD overlap syndrome due to acute bronchitis- Admit to general medical floor. Patient is being managed on scheduled bronchodilator, IV Solu-Medrol, Mucinex, incentive spirometry and Pep. Doxycycline. I 50 pack years of smoking and quit about 17 to 20 years ago. Had history of pneumonia in the past. 11/30: Continue without treatment. Solu-Medrol was decreased because of hyperglycemia 20 mg every 8 hourly. 2. Lower epigastric/right upper quadrant abdominal pain for about 4 weeks possible chronic cholecystitis with cholelithiasis: Patient had EGD many years ago, more than 10 years and was told was good. IV PPI every 12 hourly. GI consulted for EGD. Limited ultrasound shows increased liver echogenicity with fatty infiltrated. GB wall 2 mm, no PC fluid. Solitary echogenic gallstone with gallbladder sludge. CBD 4 mm. Normal size and echogenicity of pancreas. No demonstrated pancreatic mass. Liver chemistry normal limit limit except hypoalbuminemia. Total bilirubin 0.6. 11/30: Abdomen MRI shows large 2.8 stone in the neck of the gallbladder with several small stones in the fundus. No GB wall thickening or pathologic fluid no intra or extrahepatic bili ductal dilation. No indication for ERCP. Patient was evaluated by surgeon Dr. Hans Hughes after family did not want to see Dr. Becerril yesterday. As per described patient is high surgical risk candidate because of COPD exacerbation, uncontrolled diabetes with hyperglycemia, A1c 10.1. Initially family wanted transportation care but after discussion with Dr. Hughes they want to stay here. EGD was done and mentioned below Impressions : - No gross lesions in the duodenal bulb, in the first portion of the duodenum and in the second portion of the duodenum. No specimens collected. - Gastritis. Biopsied. - Small hiatal hernia. No specimens collected. - Z-line regular, 41 cm from the incisors. No specimens collected. - The examination was otherwise normal. - Grade II esophageal varices. No specimens collected. Recommendations : - [facility] care. - Diabetic (ADA) diet today. - Use Protonix (pantoprazole) 40 mg PO BID today. - Await pathology results. - No aspirin, ibuprofen, naproxen, or other non-steroidal anti-inflammatory drugs. 3. Incidentally noted hypoechoic 2.7 x 2.4 cm mass in the left lobe of the liver:-MRI abdomen with and without contrast, triple phase HCC protocol ordered. AFP ordered. 11/30: Triple phase liver MRI shows simple cyst. Size 2.29 cm. aFP normal. No further follow-up indicated. 4. Essential hypertension - Give IV hydralazine as needed for systolic blood pressure greater than 160 mmHg. 5. Hyperlipidemia -hold statin for now. 6. DM-2; of unknown control on Metformin - Keep n.p.o. for now. Hold Metformin. Accu-Chek before meals and at bedtime insulin coverage Humalog sliding scale. 11/20: Glucose is high about 300. Accu-Cheks about 350. Humalog and Lantus really dose increased. Patient currently n.p.o. 7. OA - Stable. Avoid NSAIDs. 8.low TSH: Patient does not have past medical history of hypothyroidism. TSH was done of unclear significance and indication and came out low. Possible due to euthyroid syndrome. Will need repeat TSH and free T4 after 6 weeks DVT prophylaxis, moderate to high risk- SCDs. Pharmacological prophylaxis after EGD to rule out any large gastric ulcer or bleeding Total time of the visit including total time spent in counseling or coordination of care, (more than 50% of the total time, spent in obtaining medical information from nurses and other ancillary care providers,explaining to the patient about labs, imaging, diagnosis and management of active complex medical conditions), discussion with the chair lift operator and surgeon, multiple active follow-up including COPD exacerbation, cholecystitis with cholelithiasis, liver mass, review of labs and imaging is 40 minutes. Clinical Impression(s) from Imaging Studies Chest X-Ray 11/29/23 18:43 IMPRESSION: Degenerative changes, as described above. No demonstrated acute cardiopulmonary process. Electronically Signed: Eddie Quan MD at 19:38 EDT Reading Location ID and State: [facility] / [place] , Service support , Chest CTA 11/29/23 19:10 IMPRESSION: CTA chest examination, without a demonstrated pulmonary embolism or arterial dissection. Emphysema and fibrotic densities. Electronically Signed: Eddie Quan MD at 20:46 EDT , Gallbladder Ultrasound 11/29/23 20:19 IMPRESSION: Gallstone. Sludge in the gallbladder. No biliary dilation. Nonspecific hypoechoic mass in the left lobe of the liver. Consider follow-up MRI for further characterization. Electronically Signed: Eddie Quan MD at 21:14 EDT , Total time: Approximately 55 minutes. Charges/Coding Visit Charges Inpatient E&M: 70561 Subs Hosp L3
[2023-12-01] MEDS: Lactated Ringers 1,000 ML 15 ML IV (13:05)
--- NOTE | 2023-12-01 13:30 | EGD_PTH ---
PATIENT: XANDER SORTO LOC: MS3 U#:[id number] AGE/SX: 83/F ROOM: MS305 RE11/29/[address]: Dr. Edinson Duran MD : 1940 BED: 1 DIS: 12/03/2023 SPEC #: [id number] RECD: 12/01/23 15:59 STATUS: DENG REJeanne #: [id number] PRESTON: 12/01/23 13:[address]: Hans Hughes DEPT: SURGICAL PATHOLOGY RECD BY: Winifred Pearson ENTERED: 12/02/23 10:19 SP TYPE: EGD BIOPSY OTHR DR: MD Dr. Soren Goldman DO Dr. Michael Bortz, MD Dr. Prakash Chand, MD Dr. Rahsaan Friend, Tissues: A - Gastric mucous membrane B - Gastric mucous membrane Procedures: Surgery Specimen Level IV Comments: @ Ordering doctor for AUTUMNIV edited from to @ by GRZEGORZ at 12/05/23821 @ Submitting doctor edited from to @ by GRZEGORZ at 12/05/23821 HEADER OPERATION: EGD with biopsy PRE-OP DIAGNOSIS: Epigastric burning pain TISSUE SUBMITTED: A- Antrum biopsy, B- Greater curvature gastric mucosa biopsy MICROSCOPIC DIAGNOSIS A. Gastric antrum, biopsy: Chronic gastritis, moderately severe. B. Greater curvature stomach, biopsy: Chronic gastritis. AM/ 12/05/2023 COMMENT A. The results of immunohistochemistry for Helicobacter pylori will be reported separately ([id number]). MICROSCOPIC DESCRIPTION Slides are reviewed. GROSS DESCRIPTION A. Received in fixative is one container labeled with the patient's name and designated Antrum biopsy. The specimen consists of one irregular fragment of light hoang soft tissue that measures 0.3 x 0.3 x 0.1 cm. The specimen is totally submitted in one cassette. B. Received in fixative is one container labeled with the patient's name and designated Greater curvature gastric mucosa biopsy. The specimen consists of one irregular fragment of light hoang soft tissue that measures 0.8 x 0.2 x 0.1 cm. The specimen is totally submitted in one cassette. Yuliana 12/02/23 TC:3 CPT: 47185e6
--- NOTE | 2023-12-01 13:30 | IMM_PTH ---
PATIENT: XANDER SORTO LOC: MS3 U#:[id number] AGE/SX: 83/F ROOM: MS305 RE11/29/[address]: Dr. Edinson Duran MD : 1940 BED: 1 DIS: 12/03/2023 SPEC #: [id number] RECD: 12/02/23 15:02 STATUS: SOUT REQ #: [id number] PRESTON: 12/01/23 13:[address]: Marco A Flores DEPT: IMMUNOHISTOCHEMISTRY RECD BY: Manuel Long ENTERED: 12/02/23 15:02 SP TYPE: IMMUNO OTHR DR: MD Dr. Soren Goldman DO Dr. Michael Bortz, MD Dr. Prakash Chand, MD Dr. Rahsaan Friend, DO Tissues: A - Stomach, NOS Procedures: H Pylori (initial) Comments: @ Ordering doctor for H.PYLORI edited from to @ by GRZEGORZ at 12/02/23 1513 @ Submitting doctor edited from to @ by GRZEGORZ at 12/02/23 1513 PHYSICIAN & [place] [address] SPECIMEN INFORMATION: Tissue Source: A. Antrum biopsy Clinical Info: Epigastric burning pain Specimen Number: [id number] CPT code: 56061 METHODOLOGY: Deparaffinized sections of prefer/formalin-fixed tissue or PAP/DQ stained slides are incubated with monoclonal/polyclonal antibodies/oligonucleotide probes. Localization is made via biotin free immunoperoxidase method. Appropriate controls are performed and reacted as expected. Results on target cell population are indicated in the following table: RESULTS: ANTIBODY / CLONE RESULT Block A H Pylori (polyclonal) negative These tests were developed and their performance characteristics determined by [facility]. They may not have been cleared or approved by the U.S. Food and Drug Administration. The FDA has determined that such clearance or approval is not necessary. The above immunohistochemical/dualISH markers are ordered and reviewed by the Pathologist. INTERPRETATION: A. Antrum, biopsy: Negative for Helicobacter pylori organisms. SUKHWINDER/ 12/05/23
--- NOTE | 2023-12-01 14:17 | OP.EGD_ITS ---
Patient Name: Debby Bell Procedure Date: 12/01/2023 1:29 PM Date of : 1940 Age: 83 Procedure: Upper GI endoscopy Indications: Epigastric abdominal pain, Abdominal pain in the right upper quadrant, Dyspepsia Providers: Hans Hughes MD Medicines: See the Anesthesia note for documentation of the administered medications Patient Profile: Refer to note in patient chart for documentation of history and physical. Patient has symptoms of acute epigastric abdominal pain. Complications: No immediate complications. Estimated blood loss: Minimal. Procedure: Pre-Anesthesia Assessment: - The heart rate, respiratory rate, oxygen saturations, blood pressure, adequacy of pulmonary ventilation, and response to care were monitored throughout the procedure. After obtaining informed consent, the endoscope was passed under direct vision. Throughout the procedure, the patient's blood pressure, pulse, and oxygen saturations were monitored continuously. The Endoscope was introduced through the mouth, and advanced to the second part of duodenum. The upper GI endoscopy was accomplished without difficulty. The patient tolerated the procedure well. Scope In: 1:44:08 PM Scope Out: 1:58:00 PM Total Procedure Duration Time 0 hours 13 minutes 52 seconds Findings: No gross lesions were noted in the duodenal bulb, in the first portion of the duodenum and in the second portion of the duodenum. No biopsies or other specimens were collected for this exam. Diffuse moderate inflammation characterized by erythema, friability and confluent ulcerations was found in the entire examined stomach. Biopsies were taken with a cold forceps for histology. Biopsies were taken with a cold forceps for Helicobacter pylori testing. Estimated blood loss was minimal. A small hiatal hernia was present. No biopsies or other specimens were collected for this exam. The Z-line was regular and was found 41 cm from the incisors. No biopsies or other specimens were collected for this exam. The exam was otherwise without abnormality. Grade II varices were found in the middle third of the esophagus. No biopsies or other specimens were collected for this exam. Impression: - No gross lesions in the duodenal bulb, in the first portion of the duodenum and in the second portion of the duodenum. No specimens collected. - Gastritis. Biopsied. - Small hiatal hernia. No specimens collected. - Z-line regular, 41 cm from the incisors. No specimens collected. - The examination was otherwise normal. - Grade II esophageal varices. No specimens collected. Recommendation: - [facility] to [facility] care. - Diabetic (ADA) diet today. - Use Protonix (pantoprazole) 40 mg PO BID today. - Await pathology results. - No aspirin, ibuprofen, naproxen, or other non-steroidal anti-inflammatory drugs. Procedure Code(s): --- Professional --- 08415, Esophagogastroduodenoscopy, flexible, transoral; with biopsy, single or multiple Diagnosis Code(s): --- Professional --- K29.70, Gastritis, unspecified, without bleeding K44.9, Diaphragmatic hernia without obstruction or gangrene I85.00, Esophageal varices without bleeding R10.13, Epigastric pain R10.11, Right upper quadrant pain CPT copyright 2021 [employer]. All rights reserved. The codes documented in this report are preliminary and upon cell pourer review may be revised to meet current compliance requirements. Hans Hughes MD 12/01/2023 2:16:53 PM This report has been signed electronically. Number of Addenda: 0 Note Initiated On: 12/01/2023 1:29 PM
--- NOTE | 2023-12-01 14:17 | OP.CCLET_ITS ---
12/01/2023 Higinio Salazar Re : Upper GI endoscopy procedure for Debby Bell Dear Martin This procedure was performed on November. My impressions and recommendations are as follows: Impressions : - No gross lesions in the duodenal bulb, in the first portion of the duodenum and in the second portion of the duodenum. No specimens collected. - Gastritis. Biopsied. - Small hiatal hernia. No specimens collected. - Z-line regular, 41 cm from the incisors. No specimens collected. - The examination was otherwise normal. - Grade II esophageal varices. No specimens collected. Recommendations : - [facility]. - Diabetic (ADA) diet today. - Use Protonix (pantoprazole) 40 mg PO BID today. - Await pathology results. - No aspirin, ibuprofen, naproxen, or other non-steroidal anti-inflammatory drugs. My findings are described in the full procedure note, which is enclosed. If I can be of further assistance, please feel free to contact me at Doctor phone number(s): , Work: . Sincerely, Hans Hughes MD 12/01/2023 2:16:53 PM This report has been signed electronically.
[2023-12-01] MEDS: Sucralfate 1 GM Tablet PO ×2 (16:13→22:56)
[2023-12-01 16:41] LABS: Bedside Glucose 166 mg/dL (74-106)
[2023-12-01 17:14] LABS: Bedside Glucose 182 mg/dL (74-106)
[2023-12-01] MEDS: Insulin Glargine-YFGN 100 UNIT/ML Pen 17 UNIT SC (22:56)
[2023-12-01 23:30] LABS: Bedside Glucose 302 mg/dL (74-106)
[2023-12-02] VITALS (11 sets, daily range): BP systolic 116–144; BP diastolic 64–86; PULSE 94–110; RESP 15–20; TEMP 36.1–36.6; O2SAT 86–97; BMI 27.7
[2023-12-02] MEDS: Sucralfate 1 GM Tablet PO ×4 (05:02→23:03)
[2023-12-02] MEDS: Budesonide Respules 0.5 MG/2 ML AMPUL.NEB. INHALATION ×2 (06:58→19:59)
[2023-12-02] MEDS: Ipratropium/Albuterol Sulfate 3 ML AMPUL.NEB INHALATION ×4 (06:58→19:59)
--- NOTE | 2023-12-02 07:06 | PCM.PN.SRG ---
Subjective Subjective Patient seen and examined during AM rounds. She was found resting comfortably in bed. She declares that she tolerated her return to regular diet without event. She denies any abdominal pain this morning. Objective Data Objective Data Vital Signs: Vital Signs Temp Pulse Resp BP Pulse Ox O2 Del Method O2 Flow Rate 97.9 F 104 H 20 H 144/86 H 97 Nasal Cannula 3 12/02/23 04:58 12/02/23 07:00 12/02/23 07:00 12/02/23 04:58 12/02/23 07:00 12/02/23 07:00 12/02/23 07:00 Oxygen Flow Rate (L/min) [ 3 AMBULATING with Oxygen #1] Oxygen Flow Rate (L/min) [ 0 AMBULATING on Room Air] Oxygen Flow Rate (L/min) [At 0 REST on Room Air] Oxygen Flow Rate (L/min) 3 Oxygen Delivery Method Nasal Cannula Weight: 156 lb 8.451 oz Body Mass Index (BMI) 27.7 Intake & Output: Intake and Output for Last 24 Hours 11/30/23 12/01/23 12/02/23 23:59 23:59 23:59 Intake Total 1850.00 / 1850.00 1702.75 / 1702.75 Output Total 800 / 800 1100 / 1100 Balance 1050.00 / 1050.00 602.75 / 602.75 Lab / Micro Data 12/01/23 05:45 12/01/23 05:45 Labs: Laboratory Results - last 24 hr 12/01/23 05:45: Sodium 139, Potassium 4.5, Chloride 108 H, Carbon Dioxide 32.0, Anion Gap -1 L, BUN 13, Creatinine 0.47 L, Estim Creat Clear Calc 51.29, Est GFR (MDRD) Af Amer 162, Est GFR (MDRD) Non-Af 134, BUN/Creatinine Ratio 27.5 H, Glucose 299 H, Calcium 9.4, Total Bilirubin 0.40, AST 12 L, ALT 18, Alkaline Phosphatase 53, Total Protein 5.7 L, Albumin 2.4 L, Globulin 3.3, Albumin/Globulin Ratio 0.7 L 12/01/23 11:12: POC Glucose 205 H 12/01/23 16:16: POC Glucose 166 H 12/01/23 16:50: POC Glucose 182 H 12/01/23 22:54: POC Glucose 302 H Micro: Microbiology 11/29/23 19:38 Mucosa - Nose SARS-CoV-2, Influenza & RSV (PCR) - Final Physical Exam Const oriented x3 and no apparent distress GI GI Narrative: Nondistended, soft, mild epigastric tenderness to palpation, no right upper quadrant tenderness with palpation Assessment & Plan Assessment/Plan (1) Gastritis: PLAN: Patient is postprocedure day 1 from EGD with finding of moderate to severe gastritis. She has previously initiated on IV PPI therapy but I added a prescription for Carafate following her scope. She is symptomatically improved and appears somewhat relieved to have a cause for her discomfort. Based on the severity of her symptoms would recommend avoidance of NSAID type medications and we will plan to follow-up biopsy results. However, anticipate these biopsy results will not be back until next week so the patient is otherwise stable from a medical standpoint for discharge I can plan to follow-up with patient via telephone on these results. Would plan for a minimum of 4 weeks of PPI and Carafate therapy postdischarge. (2) Cholelithiasis: PLAN: Patient with a 2.8 cm stone of the gallbladder neck and potential symptomatic cholelithiasis versus chronic cholecystitis. However, given her poorly controlled diabetes and new oxygen requirement with advanced age COPD she is a poor operative candidate at present. Thus, I recommended pursuing workup for other causes of her atypical epigastric discomfort and, as above, found evidence of moderately severe gastritis during EGD yesterday. It has been my senior genetic counselor that we should continue to try to optimize her other comorbidities while treating her gastritis and see if this brings about meaningful improvement and reevaluate what her interest is in cholecystectomy at a future time point. She has no right upper quadrant tenderness on exam today. Charges/Coding Visit Charges Inpatient E&M: 53725 Subs Hosp L2
[2023-12-02 07:57] LABS: Absolute Neutrophil Count 14.2 X10^3/uL (2.0-7.7); Basophil# 0.02 X10^3/uL; Basophil% 0.1 % (0-1); Hematocrit 38.4 % (37-47); Hemoglobin 12.6 g/dL (12.0-15.0); Lymphocyte % 6.8 % (19-41); Mean Corp Hgb Conc 32.8 g/dL (32-36); Mean Corpuscular Hgb 30.4 pg (27.0-32.0); Mean Corpuscular Volume 92.8 fL (81-99); Mean Platelet Vol. 10.6 fl (6.2-12.0); Monocyte# 0.78 X10^3/uL; Monocyte% 4.8 % (0-10); NRBC Flagged by Analyzer 0 % (0-5); Neutrophil # 14.22 X10^3/uL (2.7-7.7); Neutrophil % 87.7 % (47-70); Platelet Count 235 K/mm3 (150-450); RBC Distribution Width CV 13.9 % (11.6-14.6); RBC Distribution Width SD 47.1 fl (35.1-43.9); Red Blood Count 4.14 M/mm3 (4.2-5.4); White Blood Count 16.2 K/mm3 (4.4-11.0)
[2023-12-02 08:27] LABS: ALB/GLOB Ratio 0.8 RATIO (0.9-2.4); AST(SGOT) 14 U/L (15-37); Alanine Aminotransfer ALT/SGPT 20 U/L (13-56); Albumin, Serum 2.4 g/dL (3.2-5.0); Alkaline Phosphatase 52 U/L (45-117); Anion Gap 2 (5-15); BUN 17 mg/dL (7-18); BUN/Creat Ratio 36.7 RATIO (10-20); Chloride 109 mmol/L (98-107); Creatinine, Serum 0.46 mg/dL (0.55-1.02); EST Glomerular Filtration Rate 137 mL/min (>60); Est Glom Filt Rate - Afr Amer 166 mL/min (>60); Estimated Creatinine Clearance 51.22 ml/min; Globulin 3.1 g/dL (2.2-4.2); Glucose 192 mg/dL (74-106); Potassium 4.1 mmol/L (3.5-5.1); Protein, Total 5.5 g/dL (6.4-8.2); Sodium Level 140 mmol/L (136-145)
[2023-12-02] MEDS: Insulin Lispro 100 UNIT/ML INSULN.PEN 12 UNIT SC (08:38)
[2023-12-02] MEDS: Insulin Lispro 100 UNIT/ML INSULN.PEN SC ×3 (08:39→23:00)
[2023-12-02 08:54] LABS: Bedside Glucose 172 mg/dL (74-106)
[2023-12-02] MEDS: Pantoprazole Sodium 40 MG in 0.9% Normal Saline (100mL MB+) 100 ML 330 MG IV ×2 (11:13→23:06)
[2023-12-02] MEDS: Doxycycline 100 MG CAPSULE PO ×2 (11:15→23:03)
[2023-12-02] MEDS: 0.9% Saline Lock 10 ML Syringe IV (11:15)
[2023-12-02] MEDS: Insulin Lispro 100 UNIT/ML INSULN.PEN 15 UNIT SC (12:20)
[2023-12-02 12:45] LABS: Bedside Glucose 314 mg/dL (74-106)
--- NOTE | 2023-12-02 13:28 | PCM.PN.HOSP ---
Reason for Visit Reason for Visit: Diagnoses Acute bronchitis, unspecified (11/29/23) Other specified chronic obstructive pulmonary disease (11/29/23) Gastritis, unspecified, without bleeding (11/29/23) Gastroduodenitis, unspecified, without bleeding (11/29/23) Liver disease, unspecified (11/29/23) Calculus of gallbladder without cholecystitis without obstruction (11/29/23) Other abnormalities of breathing (11/29/23) Objective Data Objective Data Vital Signs: Vital Signs Temp Pulse Resp BP Pulse Ox O2 Del Method O2 Flow Rate 97.8 F 94 19 H 129/69 H 96 Nasal Cannula 3 12/02/23 08:05 12/02/23 10:50 12/02/23 10:50 12/02/23 08:05 12/02/23 10:13 12/02/23 08:08 12/02/23 10:13 Oxygen Flow Rate (L/min) [ 3 AMBULATING with Oxygen #1] Oxygen Flow Rate (L/min) [ 0 AMBULATING on Room Air] Oxygen Flow Rate (L/min) [At 0 REST on Room Air] Oxygen Flow Rate (L/min) 3 Oxygen Delivery Method Nasal Cannula Weight: 156 lb 8.451 oz Body Mass Index (BMI) 27.7 Intake & Output: Intake and Output for Last 24 Hours 11/30/23 12/01/23 12/02/23 23:59 23:59 23:59 Intake Total 1850.00 / 1850.00 1702.75 / 1702.75 Output Total 800 / 800 1100 / 1100 Balance 1050.00 / 1050.00 602.75 / 602.75 Lab / Micro Data 12/02/23 06:15 12/02/23 06:15 Labs: Laboratory Results - last 24 hr 12/01/23 16:16: POC Glucose 166 H 12/01/23 16:50: POC Glucose 182 H 12/01/23 22:54: POC Glucose 302 H 12/02/23 06:15: WBC 16.2 H, RBC 4.14 L, Hgb 12.6, Hct 38.4, MCV 92.8, MCH 30.4, MCHC 32.8, RDW Std Deviation 47.1 H, RDW Coeff of Prerna 13.9, Plt Count 235, MPV 10.6, Immature Gran % (Auto) 0.600, Neut % (Auto) 87.7 H, Lymph % (Auto) 6.8 L, [place] % (Auto) 4.8, Eos % (Auto) 0.0, Baso % (Auto) 0.1, Absolute Neuts (auto) 14.2 H, Absolute Lymphs (auto) 1.10, Nucleated RBC % 0, Sodium 140, Potassium 4.1, Chloride 109 H, Carbon Dioxide 29.0, Anion Gap 2 L, BUN 17, Creatinine 0.46 L, Estim Creat Clear Calc 51.22, Est GFR (MDRD) Af Amer 166, Est GFR (MDRD) Non-Af 137, BUN/Creatinine Ratio 36.7 H, Glucose 192 H, Calcium 9.0, Total Bilirubin 0.40, AST 14 L, ALT 20, Alkaline Phosphatase 52, Total Protein 5.5 L, Albumin 2.4 L, Globulin 3.1, Albumin/Globulin Ratio 0.8 L 12/02/23 08:04: POC Glucose 172 H 12/02/23 12:13: POC Glucose 314 H Micro: Microbiology 11/29/23 19:38 Mucosa - Nose SARS-CoV-2, Influenza & RSV (PCR) - Final Physical Exam Narrative Patient has multiple complaints. Shortness of breath and cough is better. Still on 3 L of oxygen. Abdominal pain has much improved and she does not feel it. Hyperglycemia better. Physical exam General: Alert, Oriented x3, Cooperative HEENT: Atraumatic, PERRLA, EOMI, Normocephalic Oral: No Gingival or Mucosal Lesions/ Ulcerations Neck: Supple, No JVD, Negative Carotid Bruits Chest wall/Lungs: Air entry diminished in bilateral lung bases. No rhonchi and wheezing has improved. Cardiovascular: Regular rate, Regular Rhythm, Normal S1, Normal S2, No M/G/R Abdomen: Bowel Sounds Present, Soft, mild tenderness on deep palpation on RUQ. No distention. : No dysuria. No renal angle tenderness. No suprapubic tenderness. Extremities: No edema, Capillary Refill Less than 3 Seconds Skin: No rashes, No breakdown Musculoskeletal: No Tenderness to Palpation of Joints or Extremities Neurological: Cranial nerves II-XII grossly intact, DTR 2+/4. No acute focal neurological deficit. Psych/Mental Status: Flat affect. Assessment & Plan Assessment/Plan (1) Asthma-COPD overlap syndrome: (2) Gastritis and gastroduodenitis: (3) Liver lesion, left lobe: PLAN: Plan 83-year-old female came to ED with dyspepsia and epigastric burning for couple of weeks, hypoxia 87%, weak and shortness of breath. On PPI and plan for reevaluation in 4 weeks but was not helping her therefore discontinued it. Patient also has been chronically nausea dyspeptic symptoms. She was recently treated for COPD exacerbation over the last few weeks and has been on prednisone. No chest pain 1. Acute exacerbation of asthma/COPD overlap syndrome due to acute bronchitis- Admit to general medical floor. Patient is being managed on scheduled bronchodilator, IV Solu-Medrol, Mucinex, incentive spirometry and Pep. Doxycycline. I 50 pack years of smoking and quit about 17 to 20 years ago. Had history of pneumonia in the past. 11/30: Continue without treatment. Solu-Medrol was decreased because of hyperglycemia 20 mg every 8 hourly. 12/01: Continue all treatment. Patient is improving. 2. Lower epigastric/right upper quadrant abdominal pain for about 4 weeks possible chronic cholecystitis with cholelithiasis: Patient had EGD many years ago, more than 10 years and was told was good. IV PPI every 12 hourly. GI consulted for EGD. Limited ultrasound shows increased liver echogenicity with fatty infiltrated. GB wall 2 mm, no PC fluid. Solitary echogenic gallstone with gallbladder sludge. CBD 4 mm. Normal size and echogenicity of pancreas. No demonstrated pancreatic mass. Liver chemistry normal limit limit except hypoalbuminemia. Total bilirubin 0.6. 11/30: Abdomen MRI shows large 2.8 stone in the neck of the gallbladder with several small stones in the fundus. No GB wall thickening or pathologic fluid no intra or extrahepatic bili ductal dilation. No indication for ERCP. Patient was evaluated by surgeon Dr. Hans Hughes after family did not want to see Dr. Becerril yesterday. As per described patient is high surgical risk candidate because of COPD exacerbation, uncontrolled diabetes with hyperglycemia, A1c 10.1. Initially family wanted transportation care but after discussion with Dr. Hughes they want to stay here. EGD was done and mentioned below Impressions : - No gross lesions in the duodenal bulb, in the first portion of the duodenum and in the second portion of the duodenum. No specimens collected. - Gastritis. Biopsied. - Small hiatal hernia. No specimens collected. - Z-line regular, 41 cm from the incisors. No specimens collected. - The examination was otherwise normal. - Grade II esophageal varices. No specimens collected. Recommendations : - [facility] care. - Diabetic (ADA) diet today. - Use Protonix (pantoprazole) 40 mg PO BID today. - Await pathology results. - No aspirin, ibuprofen, naproxen, or other non-steroidal anti-inflammatory drugs. 12/01: Carafate was added on top of PPI. Plan to continue at least for 4 weeks. Follow-up EGD biopsy with Dr. Hughes. 3. Incidentally noted hypoechoic 2.7 x 2.4 cm mass in the left lobe of the liver:-MRI abdomen with and without contrast, triple phase HCC protocol ordered. AFP ordered. 11/30: Triple phase liver MRI shows simple cyst. Size 2.29 cm. AFP normal. No further follow-up indicated. 4. Essential hypertension - Give IV hydralazine as needed for systolic blood pressure greater than 160 mmHg. 5. Hyperlipidemia -hold statin for now. 6. DM-2; of unknown control on Metformin - Keep n.p.o. for now. Hold Metformin. Accu-Chek before meals and at bedtime insulin coverage Humalog sliding scale. 11/30: Glucose is high about 300. Accu-Cheks about 350. Humalog and Lantus really dose increased. Patient currently n.p.o. 12/01: Glucose has improved but is still elevated range from 172-314. Lantus insulin and Humalog insulin increased. 7. OA - Stable. Avoid NSAIDs. 8.low TSH: Patient does not have past medical history of hypothyroidism. TSH was done of unclear significance and indication and came out low. Possible due to euthyroid syndrome. Will need repeat TSH and free T4 after 6 weeks DVT prophylaxis, moderate to high risk- SCDs. Pharmacological prophylaxis after EGD to rule out any large gastric ulcer or bleeding Total time of the visit including total time spent in counseling or coordination of care, (more than 50% of the total time, spent in obtaining medical information from nurses and other ancillary care providers,explaining to the patient about labs, imaging, diagnosis and management of active complex medical conditions), discussion with the reimbursement auditor and surgeon, multiple active follow-up including COPD exacerbation, cholecystitis with cholelithiasis, liver mass, review of labs and imaging is 40 minutes. Clinical Impression(s) from Imaging Studies Chest X-Ray 11/29/23 18:43 IMPRESSION: Degenerative changes, as described above. No demonstrated acute cardiopulmonary process. Electronically Signed: Eddie Quan MD at 19:38 EDT Reading Location ID and State: [facility] / [place] , Service support , Chest CTA 11/29/23 19:10 IMPRESSION: CTA chest examination, without a demonstrated pulmonary embolism or arterial dissection. Emphysema and fibrotic densities. Electronically Signed: Eddie Quan MD at 20:46 EDT Reading Location ID and State: [facility] / [place] , Service support , Gallbladder Ultrasound 11/29/23 20:19 IMPRESSION: Gallstone. Sludge in the gallbladder. No biliary dilation. Nonspecific hypoechoic mass in the left lobe of the liver. Consider follow-up MRI for further characterization. Electronically Signed: Eddie Quan MD at 21:14 EDT , Total time: Approximately 55 minutes. Charges/Coding Visit Charges Inpatient E&M: 11865 Subs Hosp L2
[2023-12-02] MEDS: Insulin Glargine-YFGN 100 UNIT/ML Pen 15 UNIT SC ×2 (16:26→23:51)
--- NOTE | 2023-12-02 16:29 | CASEMGMT ---
MICHELLE AU NOTE: RN ROE to room. Pt resting in bed. Questions answered re: home O2 if she qualifies for it @ d/c. She denies having other discharge planning needs/concerns. She confirms she has a pulse ox @ home. Green sheet on chart w/instructions for O2 set-up, should she qualify. Edilma BSN MICHELLE CM
[2023-12-02 16:56] LABS: Bedside Glucose 320 mg/dL (74-106)
[2023-12-02 23:28] LABS: Bedside Glucose 296 mg/dL (74-106)
[2023-12-03] VITALS (7 sets, daily range): BP systolic 125–145; BP diastolic 75–80; PULSE 80–100; RESP 15–17; TEMP 36.4–36.6; O2SAT 85–98; BMI 27.6
[2023-12-03 05:51] LABS: Absolute Lymphocyte Count 1.27 X10^3/uL (0.83-4.51); Basophil# 0.03 X10^3/uL; Basophil% 0.2 % (0-1); Hemoglobin 13.1 g/dL (12.0-15.0); Lymphocyte # 1.27 X10^3/ul (0.83-4.51); Lymphocyte % 9.1 % (19-41); Mean Corpuscular Hgb 29.6 pg (27.0-32.0); Mean Corpuscular Volume 92.6 fL (81-99); Mean Platelet Vol. 9.9 fl (6.2-12.0); Monocyte# 0.59 X10^3/uL; Monocyte% 4.2 % (0-10); NRBC Flagged by Analyzer 0 % (0-5); Neutrophil # 11.98 X10^3/uL (2.7-7.7); Neutrophil % 85.7 % (47-70); Platelet Count 246 K/mm3 (150-450); RBC Distribution Width CV 13.9 % (11.6-14.6); RBC Distribution Width SD 47.1 fl (35.1-43.9); Red Blood Count 4.43 M/mm3 (4.2-5.4)
[2023-12-03 06:27] LABS: Anion Gap 4 (5-15); BUN 15 mg/dL (7-18); BUN/Creat Ratio 26.2 RATIO (10-20); Calcium,Total 9.4 mg/dL (8.5-10.1); Chloride 108 mmol/L (98-107); Creatinine, Serum 0.57 mg/dL (0.55-1.02); EST Glomerular Filtration Rate 108 mL/min (>60); Est Glom Filt Rate - Afr Amer 130 mL/min (>60); Estimated Creatinine Clearance 51.22 ml/min; Glucose 176 mg/dL (74-106); Potassium 3.9 mmol/L (3.5-5.1); Sodium Level 139 mmol/L (136-145)
[2023-12-03] MEDS: Budesonide Respules 0.5 MG/2 ML AMPUL.NEB. INHALATION (06:53)
[2023-12-03] MEDS: Ipratropium/Albuterol Sulfate 3 ML AMPUL.NEB INHALATION ×2 (06:53→11:07)
[2023-12-03] MEDS: Sucralfate 1 GM Tablet PO (08:29)
[2023-12-03] MEDS: Insulin Lispro 100 UNIT/ML INSULN.PEN 18 UNIT SC (08:34)
[2023-12-03] MEDS: Insulin Lispro 100 UNIT/ML INSULN.PEN SC (08:35)
[2023-12-03] MEDS: Insulin Glargine-YFGN 100 UNIT/ML Pen 15 UNIT SC (08:35)
[2023-12-03] MEDS: Doxycycline 100 MG CAPSULE PO (08:35)
[2023-12-03] MEDS: Pantoprazole Sodium 40 MG in 0.9% Normal Saline (100mL MB+) 100 ML 330 MG IV (08:43)
--- NOTE | 2023-12-03 09:36 | PCM.PN.SRG ---
Subjective Subjective Patient does not report any abdominal pain this morning. Objective Data Objective Data Vital Signs: Vital Signs Temp Pulse Resp BP Pulse Ox O2 Del Method O2 Flow Rate 97.6 F L 99 16 145/75 H 90 Nasal Cannula 2 12/03/23 09:11 12/03/23 09:11 12/03/23 09:11 12/03/23 09:11 12/03/23 09:26 12/03/23 09:11 12/03/23 09:26 Oxygen Flow Rate (L/min) [ 2 AMBULATING with Oxygen #1] Oxygen Flow Rate (L/min) [ 0 AMBULATING on Room Air] Oxygen Flow Rate (L/min) [At 0 REST on Room Air] Oxygen Flow Rate (L/min) 3 Oxygen Delivery Method Nasal Cannula Weight: 155 lb 10.342 oz Body Mass Index (BMI) 27.6 Intake & Output: Intake and Output for Last 24 Hours 12/01/23 12/02/23 12/03/23 23:59 23:59 23:59 Intake Total 1702.75 / 1702.75 110 / 110 110 / 110 Output Total 1100 / 1100 Balance 602.75 / 602.75 110 / 110 110 / 110 Lab / Micro Data 12/03/23 05:25 12/03/23 05:25 Labs: Laboratory Results - last 24 hr 12/02/23 12:13: POC Glucose 314 H 12/02/23 16:24: POC Glucose 320 H 12/02/23 22:57: POC Glucose 296 H 12/03/23 05:25: WBC 14.0 H, RBC 4.43, Hgb 13.1, Hct 41.0, MCV 92.6, MCH 29.6, MCHC 32.0, RDW Std Deviation 47.1 H, RDW Coeff of Prerna 13.9, Plt Count 246, MPV 9.9, Immature Gran % (Auto) 0.800, Neut % (Auto) 85.7 H, Lymph % (Auto) 9.1 L, [place] % (Auto) 4.2, Eos % (Auto) 0.0, Baso % (Auto) 0.2, Absolute Neuts (auto) 12.0 H, Absolute Lymphs (auto) 1.27, Nucleated RBC % 0, Sodium 139, Potassium 3.9, Chloride 108 H, Carbon Dioxide 27.0, Anion Gap 4 L, BUN 15, Creatinine 0.57, Estim Creat Clear Calc 51.22, Est GFR (MDRD) Af Amer 130, Est GFR (MDRD) Non-Af 108, BUN/Creatinine Ratio 26.2 H, Glucose 176 H, Calcium 9.4 Micro: Microbiology 11/29/23 19:38 Mucosa - Nose SARS-CoV-2, Influenza & RSV (PCR) - Final Physical Exam Const oriented x3 and no apparent distress Resp normal respiratory effort GI normal to inspection, nondistended, normoactive bowel sounds Assessment & Plan Assessment/Plan (1) Gastritis: (2) Cholelithiasis: PLAN: Plan The patient had gastritis and was started on a PPI. She seems comfortable. She does have a large gallstone and should follow-up with Dr Hughes as outpatient to discuss cholecystectomy. Jama De Leon MD Pager: [facility] [address] [place] [address], [address] [place] [address] Office:
--- NOTE | 2023-12-03 10:51 | DCINST_ITS ---
Discharge Instructions Diet Discharge Diet: Low fat / Low cholesterol, 1800 Calorie Control Diet and 2000 mg Sodium Diet Activity Discharge Activity: Return to Normal Activity Weight Bearing Status: Weight bearing as tolerated Dressing / Incision Call your doctor if you observe: Fever of 101 or Higher, Coldness, Increased Pain, Numbness or Tingling, Change in Color, Inability to urinate, Inability to have a bowel movement, Shortness of breath, Dizziness, Fainting spells, Swelling in the ankles, Chest pain, Prolonged hiccupping, Increased palpitations (irregular heartbeat) and Calf discomfort Follow Up Care When: IN 2 WEEKS Test Results: Test results from this visit will be discussed in further detail at your follow- up appointment, if applicable. Discharge Plan Admission Admit Date/Time: 11/29/23 22:19 Attending Provider: Edinson Duran Primary Care Provider: Higinio Salazar Consulting Providers: Soren Meraz; Marco A Flores; Hans Hughes Instructions Additional Instructions / Restrictions: Advised to follow-up with production support consultant in 2 weeks, to be referred by PCP Discharge Orders/Prescriptions Prescriptions: New sucralfate 1 gram Tablet 1 g PO 1HR_ACHS 30 Days Qty: 90 0RF doxycycline monohydrate 100 mg Capsule 100 mg PO BID 3 Days Qty: 6 0RF prednisone 10 mg tablet 10 mg PO DAILY Qty: 30 0RF Rx Instructions: 40 mg for 3 days 30 mg for 3 days, 20 mg for 3 days,and 10 mg for 3 days dextromethorphan-guaifenesin [Mucinex DM] 60-1,200 mg tablet extended release 12 hr 1 tab PO BID 5 Days Qty: 10 0RF pantoprazole [Protonix] 40 mg tablet,delayed release (DR/EC) 40 mg PO BID 30 Days Qty: 60 1RF Continued metformin 500 mg tablet 500 mg PO BID diltiazem HCl 120 mg capsule,extended release 24 hr 120 mg PO QDAY Trelegy Ellipta 200-62.5-25 mcg blister with device 1 inh inhalation DAILY Qty: 60 6RF atorvastatin 20 mg tablet 20 mg PO DAILY Patient Comments: Take 1 tablet by mouth once daily. For cholesterol. multivitamin Tablet 1 tab PO DAILY clobetasol 0.05 % cream 1 applic TOPICAL BID PRN (Reason: Rash) Patient Comments: Apply to affected area twice daily for 2 days. As needed albuterol sulfate 90 mcg/actuation HFA aerosol inhaler 2 puff INHALATION Q4H PRN (Reason: SOB) Patient Comments: Inhale 2 Puffs as instructed every 4 hours as needed for wheezing/shortness of breath. albuterol sulfate 2.5 mg /3 mL (0.083 %) solution for nebulization 2.5 mg inhalation Q4H PRN PRN (Reason: wheezing) Referrals / Follow Up: Higinio Salazar MD [Primary Care Provider] - Hans Hughes MD [Med Staff - Active Staff] - Within 2 Weeks Disposition Disposition (needs filled in before D/C Order can be placed): Home, Self Care
--- NOTE | 2023-12-03 10:57 | PCM.DC.SUM ---
Providers Date of Admission: 11/29/23 Date of Discharge: 12/03/23 Primary Care Physician: Dr. Higinio Salazar MD Consultations 11/29/23 23:06 Consult: Gastroenterology Routine Consulting Provider: Marco A Flores Reason for Consult: Suspected gastritis/PUD. EMERGENT Consult: No Notified: Yes Date Notified: 11/30/23 Time Notified: 06:21 Method of Notification: Text 11/30/23 11:12 Consult: General Surgery Routine Consulting Provider: Hans Hughes Reason for Consult: acute cholecystitis, cholelithiasis EMERGENT Consult: No Notified: Yes Date Notified: 11/30/23 Time Notified: 17:35 Method of Notification: per [employer] Reason For Visit: ACUTE EXACERBATION OF COPD, RESPIRATORY Diagnosis Discharge Diagnosis (1) Gastritis: Status: Acute Code(s): K29.70 - Gastritis, unspecified, without bleeding (2) Cholelithiasis: Status: Acute Code(s): K80.20 - Calculus of gallbladder without cholecystitis without obstruction Plan 83-year-old female came to ED with dyspepsia and epigastric burning for couple of weeks, hypoxia 87%, weak and shortness of breath. On PPI and plan for reevaluation in 4 weeks but was not helping her therefore discontinued it. Patient also has been chronically nausea dyspeptic symptoms. She was recently treated for COPD exacerbation over the last few weeks and has been on prednisone. No chest pain 1. Acute exacerbation of asthma/COPD overlap syndrome due to acute bronchitis- Admit to general medical floor. Patient is being managed on scheduled bronchodilator, IV Solu-Medrol, Mucinex, incentive spirometry and Pep. Doxycycline. I 50 pack years of smoking and quit about 17 to 20 years ago. Had history of pneumonia in the past. 11/30: Continue without treatment. Solu-Medrol was decreased because of hyperglycemia 20 mg every 8 hourly. 12/01: Continue all treatment. Patient is improving. 12/02: Her breathing is comfortable. Home oxygen qualification test ordered. Prescription given for tapering dose of prednisone, Mucinex DM. She already has Trelegy and rescue inhalers at home. 2. Lower epigastric/right upper quadrant abdominal pain for about 4 weeks possible chronic cholecystitis with cholelithiasis: Patient had EGD many years ago, more than 10 years and was told was good. IV PPI every 12 hourly. GI consulted for EGD. Limited ultrasound shows increased liver echogenicity with fatty infiltrated. GB wall 2 mm, no PC fluid. Solitary echogenic gallstone with gallbladder sludge. CBD 4 mm. Normal size and echogenicity of pancreas. No demonstrated pancreatic mass. Liver chemistry normal limit limit except hypoalbuminemia. Total bilirubin 0.6. 11/30: Abdomen MRI shows large 2.8 stone in the neck of the gallbladder with several small stones in the fundus. No GB wall thickening or pathologic fluid no intra or extrahepatic bili ductal dilation. No indication for ERCP. Patient was evaluated by surgeon Dr. Hans Hughes after family did not want to see Dr. Becerril yesterday. As per described patient is high surgical risk candidate because of COPD exacerbation, uncontrolled diabetes with hyperglycemia, A1c 10.1. Initially family wanted transportation care but after discussion with Dr. Hughes they want to stay here. EGD was done and mentioned below Impressions : - No gross lesions in the duodenal bulb, in the first portion of the duodenum and in the second portion of the duodenum. No specimens collected. - Gastritis. Biopsied. - Small hiatal hernia. No specimens collected. - Z-line regular, 41 cm from the incisors. No specimens collected. - The examination was otherwise normal. - Grade II esophageal varices. No specimens collected. Recommendations : - [facility] care. - Diabetic (ADA) diet today. - Use Protonix (pantoprazole) 40 mg PO BID today. - Await pathology results. - No aspirin, ibuprofen, naproxen, or other non-steroidal anti-inflammatory drugs. 12/01: Carafate was added on top of PPI. Plan to continue at least for 4 weeks. Follow-up EGD biopsy with Dr. Hughes. 12/02: Patient discharged on Carafate and pantoprazole. Follow-up with Dr. Hughes in about 2 weeks. Patient is is referred to tertiary care center as an outpatient for cholelithiasis. 3. Incidentally noted hypoechoic 2.7 x 2.4 cm mass in the left lobe of the liver, simple cyst:-MRI abdomen with and without contrast, triple phase HCC protocol ordered. AFP ordered. 11/30: Triple phase liver MRI shows simple cyst. Size 2.29 cm. AFP normal. No further follow-up indicated. 4. Essential hypertension - Give IV hydralazine as needed for systolic blood pressure greater than 160 mmHg. 5. Hyperlipidemia -hold statin for now. 6. DM-2; of unknown control on Metformin - Keep n.p.o. for now. Hold Metformin. Accu-Chek before meals and at bedtime insulin coverage Humalog sliding scale. 11/30: Glucose is high about 300. Accu-Cheks about 350. Humalog and Lantus really dose increased. Patient currently n.p.o. 12/01: Glucose has improved but is still elevated range from 172-314. Lantus insulin and Humalog insulin increased. 12/02: Glucose is well-controlled. Solu-Medrol discontinued. Discharged on prednisone. 7. OA - Stable. Avoid NSAIDs. 8.low TSH: Patient does not have past medical history of hypothyroidism. TSH was done of unclear significance and indication and came out low. Possible due to euthyroid syndrome. Will need repeat TSH and free T4 after 6 weeks DVT prophylaxis, moderate to high risk- SCDs. Pharmacological prophylaxis after EGD to rule out any large gastric ulcer or bleeding Total time of the visit including total time spent in counseling or coordination of care, (more than 50% of the total time, spent in obtaining medical information from nurses and other ancillary care providers,explaining to the patient about labs, imaging, diagnosis and management of active complex medical conditions), discussion with the bread jockey and surgeon, multiple active follow-up including COPD exacerbation, cholecystitis with cholelithiasis, liver mass, review of labs and imaging is 40 minutes. Clinical Impression(s) from Imaging Studies Chest X-Ray 11/29/23 18:43 IMPRESSION: Degenerative changes, as described above. No demonstrated acute cardiopulmonary process. Electronically Signed: Eddie Quan MD at 19:38 EDT , Chest CTA 11/29/23 19:10 IMPRESSION: CTA chest examination, without a demonstrated pulmonary embolism or arterial dissection. Emphysema and fibrotic densities. Electronically Signed: Eddie Quan MD at 20:46 EDT , Gallbladder Ultrasound 11/29/23 20:19 IMPRESSION: Gallstone. Sludge in the gallbladder. No biliary dilation. Nonspecific hypoechoic mass in the left lobe of the liver. Consider follow-up MRI for further characterization. Electronically Signed: Eddie Quan MD at 21:14 EDT , Total time: Approximately 55 minutes. Medications at Discharge Home Medications albuterol sulfate 90 mcg/actuation aerosol inhaler 2 puff inhalation Q4H PRN SOB 08/24/22 atorvastatin 20 mg tablet 20 mg PO DAILY 08/24/22 clobetasol 0.05 % topical cream 1 applic topical BID PRN Rash 08/24/22 multivitamin 1 tab PO DAILY SUPPLEMENT 08/24/22 diltiazem HCl 120 mg capsule,24 hr,extended release 120 mg PO QDAY 11/07/23 fluticasone fur. 200 mcg-umeclid 62.5 mcg-vilant 25 mcg inhalat.powder (Trelegy Ellipta) 1 inh inhalation DAILY #60 ea 11/07/23 metformin 500 mg tablet 500 mg PO BID 11/07/23 albuterol sulfate 2.5 mg/3 mL (0.083 %) solution for nebulization 2.5 mg inhalation Q4H PRN PRN wheezing 11/29/23 dextromethorphan-guaifenesin ER 60 mg-1,200 mg tab,extend release,12hr (Mucinex DM) 1 tab PO BID 5 days #10 tabs 12/03/23 doxycycline monohydrate 100 mg capsule 100 mg PO BID 3 days #6 caps 12/03/23 pantoprazole 40 mg tablet,delayed release (Protonix) 40 mg PO BID 1 month #60 tabs 12/03/23 prednisone 10 mg tablet 10 mg PO DAILY #30 tabs 12/03/23 sucralfate 1 gram tablet 1 g PO 1HR_ACHS 30 days #90 tabs 12/03/23 Physical Exam Narrative Patient has multiple complaints. Shortness of breath and cough has improved. Currently on 2 L of oxygen. Does not have abdominal pain. Physical exam General: Alert, Oriented x3, Cooperative HEENT: Atraumatic, PERRLA, EOMI, Normocephalic Oral: No Gingival or Mucosal Lesions/ Ulcerations Neck: Supple, No JVD, Negative Carotid Bruits Chest wall/Lungs: Air entry diminished in bilateral lung bases. No rhonchi and wheezing Cardiovascular: Regular rate, Regular Rhythm, Normal S1, Normal S2, No M/G/R Abdomen: Bowel Sounds Present, Soft, no tenderness. No distention. No palpable mass. : No dysuria. No renal angle tenderness. No suprapubic tenderness. Extremities: No edema, Capillary Refill Less than 3 Seconds Skin: No rashes, No breakdown Musculoskeletal: No Tenderness to Palpation of Joints or Extremities Neurological: Cranial nerves II-XII grossly intact, DTR 2+/4. No acute focal neurological deficit. Psych/Mental Status: Flat affect. Weight / BMI Weight Weight: 155 lb 10.342 oz Body Mass Index (BMI) 27.6 ABG / Lab / Microbiology Data 12/03/23 05:25 12/03/23 05:25 Laboratory: Laboratory Results - last 24 hr 12/02/23 12:13: POC Glucose 314 H 12/02/23 16:24: POC Glucose 320 H 12/02/23 22:57: POC Glucose 296 H 12/03/23 05:25: WBC 14.0 H, RBC 4.43, Hgb 13.1, Hct 41.0, MCV 92.6, MCH 29.6, MCHC 32.0, RDW Std Deviation 47.1 H, RDW Coeff of Prerna 13.9, Plt Count 246, MPV 9.9, Immature Gran % (Auto) 0.800, Neut % (Auto) 85.7 H, Lymph % (Auto) 9.1 L, [place] % (Auto) 4.2, Eos % (Auto) 0.0, Baso % (Auto) 0.2, Absolute Neuts (auto) 12.0 H, Absolute Lymphs (auto) 1.27, Nucleated RBC % 0, Sodium 139, Potassium 3.9, Chloride 108 H, Carbon Dioxide 27.0, Anion Gap 4 L, BUN 15, Creatinine 0.57, Estim Creat Clear Calc 51.22, Est GFR (MDRD) Af Amer 130, Est GFR (MDRD) Non-Af 108, BUN/Creatinine Ratio 26.2 H, Glucose 176 H, Calcium 9.4 Microbiology: Microbiology 11/29/23 19:38 Mucosa - Nose SARS-CoV-2, Influenza & RSV (PCR) - Final D/C Instructions Discharge Diet: Low fat / Low cholesterol, 1800 Calorie Control Diet and 2000 mg Sodium Diet Weight Bearing Status: Weight bearing as tolerated Call your doctor if you observe: Fever of 101 or Higher, Coldness, Increased Pain, Numbness or Tingling, Change in Color, Inability to urinate, Inability to have a bowel movement, Shortness of breath, Dizziness, Fainting spells, Swelling in the ankles, Chest pain, Prolonged hiccupping, Increased palpitations (irregular heartbeat) and Calf discomfort When: IN 2 WEEKS Meaningful Use Info Meaningful Use Diagnoses (Choose all that apply): None applicable Discharge Plan Admission Admit Date/Time: 11/29/23 22:19 Attending Provider: Edinson Duran Primary Care Provider: Higinio Salazar Consulting Providers: Soren Meraz; Marco A Flores; Hans Hughes Instructions Additional Instructions / Restrictions: Advised to follow-up with nut dehydrator operator in 2 weeks, to be referred by PCP Discharge Orders/Prescriptions Prescriptions: New sucralfate 1 gram Tablet 1 g PO 1HR_ACHS 30 Days Qty: 90 0RF doxycycline monohydrate 100 mg Capsule 100 mg PO BID 3 Days Qty: 6 0RF prednisone 10 mg tablet 10 mg PO DAILY Qty: 30 0RF Rx Instructions: 40 mg for 3 days 30 mg for 3 days, 20 mg for 3 days,and 10 mg for 3 days dextromethorphan-guaifenesin [Mucinex DM] 60-1,200 mg tablet extended release 12 hr 1 tab PO BID 5 Days Qty: 10 0RF pantoprazole [Protonix] 40 mg tablet,delayed release (DR/EC) 40 mg PO BID 30 Days Qty: 60 1RF Continued metformin 500 mg tablet 500 mg PO BID diltiazem HCl 120 mg capsule,extended release 24 hr 120 mg PO QDAY Trelegy Ellipta 200-62.5-25 mcg blister with device 1 inh inhalation DAILY Qty: 60 6RF atorvastatin 20 mg tablet 20 mg PO DAILY Patient Comments: Take 1 tablet by mouth once daily. For cholesterol. multivitamin Tablet 1 tab PO DAILY clobetasol 0.05 % cream 1 applic TOPICAL BID PRN (Reason: Rash) Patient Comments: Apply to affected area twice daily for 2 days. As needed albuterol sulfate 90 mcg/actuation HFA aerosol inhaler 2 puff INHALATION Q4H PRN (Reason: SOB) Patient Comments: Inhale 2 Puffs as instructed every 4 hours as needed for wheezing/shortness of breath. albuterol sulfate 2.5 mg /3 mL (0.083 %) solution for nebulization 2.5 mg inhalation Q4H PRN PRN (Reason: wheezing) Referrals / Follow Up: Higinio Salazar MD [Primary Care Provider] - Hans Hughes MD [Med Staff - Active Staff] - Within 2 Weeks Disposition Disposition (needs filled in before D/C Order can be placed): Home, Self Care Charges/Coding Visit Charges Inpatient E&M: 52524 Disch Hosp >30min
== END 2023-12-03 13:44 | disposition home or self-care (01) | DRG 202 ==
LOC: ED 21:59 → MS3 22:28
PROVIDERS: Surgery; Admitting Provider Internal Medicine; Emergency Provider Student in an Organized Health Care Education/Training Program; PCP Family Medicine; Visit Provider Internal Medicine
PROC: 0DJ08ZZ Inspection of Upper Intestinal Tract, Via Natural or Artificial Opening Endoscopic (ICD-10-PCS; CPT 43235; principal; 2023-12-01 13:25)
DX: J20.9 Acute bronchitis, unspecified (principal); I85.00 Esophageal varices without bleeding; J44.0 Chronic obstructive pulmonary disease with (acute) lower respiratory infection; J44.1 Chronic obstructive pulmonary disease with (acute) exacerbation; J45.901 Unspecified asthma with (acute) exacerbation; K80.10 Calculus of gallbladder with chronic cholecystitis without obstruction; K76.89 Other specified diseases of liver; E11.65 Type 2 diabetes mellitus with hyperglycemia; I10 Essential (primary) hypertension; K29.50 Unspecified chronic gastritis without bleeding; K21.9 Gastro-esophageal reflux disease without esophagitis; K44.9 Diaphragmatic hernia without obstruction or gangrene; E78.5 Hyperlipidemia, unspecified; E07.81 Sick-euthyroid syndrome; R09.02 Hypoxemia; Z79.51 Long term (current) use of inhaled steroids; Z79.84 Long term (current) use of oral hypoglycemic drugs; Z79.899 Other long term (current) drug therapy; Z87.01 Personal history of pneumonia (recurrent); Z87.891 Personal history of nicotine dependence
CPT/HCPCS: 36415; 71045; 71275; 74183; 76705; 80048; 80053; 81001; 82105; 82962; 83036; 83690; 83735; 83880; 84100; 84443; 84484; 85025; 87631; 88305; 88342; 93005; 94640; 94668; 97116; 97162; 97530; 99284; A9575; J7030; J7120; Q9967; A4216; J2405; J3490

== ENCOUNTER 2023-12-12 14:50 | Emergency (ER) | payer MEDICARE, OTHER, SELFPAY ==
[2023-12-12 14:51] VITALS: BP 131/63; PULSE 115; RESP 20; TEMP 36.1; O2SAT 95; BMI 25.9
--- NOTE | 2023-12-12 15:09 | EKG12_ITS ---
Test Reason : SOB Blood Pressure : / mmHG Vent. Rate : 118 BPM Atrial Rate : 118 BPM P-R Int : 160 ms QRS Dur : 070 ms QT Int : 330 ms P-R-T Axes : 000 057 075 degrees QTc Int : 462 ms Sinus tachycardia with Premature atrial complexes with Aberrant conduction Otherwise normal ECG Confirmed by MEKA JIMENES, ALEXANDRA ([id number]), business editor MIYA MALCOLM ([id number]) on 12/19/2023 1:21:20 PM Referred By: WENDI/SHIRA Confirmed By:TOMASZ ACKERMAN MD
--- NOTE | 2023-12-12 15:10 | EX.ED.DYSGE1 ---
HPI History of Present Illness Chief Complaint: Shortness of Breath Narrative Narrative: 83-year-old female past medical history of gallstone, COPD, was recently admitted to the hospital and released 10 days ago. Since then, she states that she has been more short of breath, weak, and wobbly. She has had increased shortness of breath. She states before she was hospitalized and agrees to wear oxygen, but they sent her home on 2 L which is supposed to be wearing. They also state that she supposed to have an Endo procedure and has been cleared by her hose stripper at the [facility]. She complains of right upper quadrant abdominal pain from her gallstone which is associated with nausea but no vomiting. No fevers or chills, no other symptoms. She states that she does not feel well, and has been more short of breath. [facility] Medical History Bronchopneumonia Cholelithiasis COPD, group C, by GOLD 2017 classification Diabetes Gallstones Gastritis History of fracture of left ankle Home Medications albuterol sulfate 90 mcg/actuation aerosol inhaler 2 puff inhalation Q4H PRN SOB 08/24/22 [History Last Taken 08/24/22] atorvastatin 20 mg tablet 20 mg PO DAILY 08/24/22 [History Last Taken 08/24/22] clobetasol 0.05 % topical cream 1 applic topical BID PRN Rash 08/24/22 [History Last Taken 1 Week Ago ~08/17/22] multivitamin 1 tab PO DAILY SUPPLEMENT 08/24/22 [History Last Taken 08/24/22] diltiazem HCl 120 mg capsule,24 hr,extended release 120 mg PO QDAY 11/07/23 [History Last Taken Unknown] fluticasone fur. 200 mcg-umeclid 62.5 mcg-vilant 25 mcg inhalat.powder (Trelegy Ellipta) 1 inh inhalation DAILY #60 ea 11/07/23 [Rx Last Taken Unknown] albuterol sulfate 2.5 mg/3 mL (0.083 %) solution for nebulization 2.5 mg inhalation Q4H PRN PRN wheezing 11/29/23 [History Last Taken Unknown] dextromethorphan-guaifenesin ER 60 mg-1,200 mg tab,extend release,12hr (Mucinex DM) 1 tab PO BID 5 days #10 tabs 12/03/23 [Rx Last Taken Unknown] pantoprazole 40 mg tablet,delayed release (Protonix) 40 mg PO BID 1 month #60 tabs 12/03/23 [Rx Last Taken Unknown] prednisone 10 mg tablet 10 mg PO DAILY #30 tabs 12/03/23 [Rx Last Taken Unknown] sucralfate 1 gram tablet 1 g PO 1HR_ACHS 30 days #90 tabs 12/03/23 [Rx Last Taken Unknown] mucus clearing device 12/08/23 [History Last Taken Unknown] cephalexin 500 mg capsule 500 mg PO Q12 #14 CAPSULES 12/12/23 [Rx Last Taken Unknown] metformin 1,000 mg tablet 1,000 mg PO BID 12/12/23 [History Last Taken Unknown] Allergy/AdvReac Type Severity Reaction Status Date / Time No Known Allergies Allergy Verified 12/12/23 14:51 Social History Smoking Status: Former smoker Tobacco: How many years used: 50 ROS ROS ED ROS Narrative Constitutional: No fever, no chills. Generalized weakness. HEENT: No sore throat. No neck pain. No loss of vision. No rhinorrhea. Cardiovascular: No chest pain. No palpitations. No pedal edema. Respiratory: No cough, positive dyspnea on exertion and shortness of breath. Abdominal: Right upper quadrant abdominal pain. Positive nausea. No vomiting. Genitourinary: No dysuria. No hematuria. Musculoskeletal: No myalgias. No arthralgias. Neurologic: No headaches. No dizziness. No lightheadedness. Skin: No rash. No change in color. Psychiatric: No depression. No anxiety. EXAM Physical Exam Narrative Exam Narrative: Afebrile. Vital signs noted. HEENT: Normocephalic. Atraumatic. PERRL, EOMI. Neck soft and supple. No point tenderness or step off. Cardiovascular: Regular rate and rhythm. No murmurs, rubs, or gallops appreciated. Respiratory: No tachypnea. Lungs clear to auscultation bilaterally. Decreased breath sounds bilateral bases. Gastrointestinal: Abdomen soft, nontender, with normoactive bowel sounds. No rebound or guarding. Neurological: Awake. Alert. Nonfocal, nonlateralizing. Skin: No rash. Normal color. No pallor. Musculoskeletal: No pedal edema. Full range of motion extremities. Const Vital Signs: 12/12/23 14:51 12/12/23 15:23 12/12/23 15:29 Temperature 96.9 F L Temperature Source Temporal Pulse Rate 115 H Respiratory Rate 20 H Respiratory Effort Short of Breath Labored Short of Breath Labored Respiratory Pattern Tachypnea Tachypnea Blood Pressure 131/63 H Blood Pressure Mean 85 Pulse Ox 95 Oxygen Delivery Method Nasal Cannula Nasal Cannula Oxygen Flow Rate (L/min) 2 2 12/12/23 15:54 12/12/23 16:00 12/12/23 17:00 Temperature 98.0 F 98.6 F 98.9 F Temperature Source Temporal Temporal Oral Pulse Rate 106 H 103 H 102 H Respiratory Rate 18 22 H 20 H Respiratory Effort Respiratory Pattern Blood Pressure 100/62 117/62 120/63 Blood Pressure Mean 74 80 82 Pulse Ox 98 93 93 Oxygen Delivery Method Nasal Cannula Nasal Cannula Nasal Cannula Oxygen Flow Rate (L/min) 2 2 2 MDM MDM MDM Narrative Medical decision making narrative: In the differential diagnosis is COPD versus CHF versus a combination of both. I have lower suspicion for pneumonia based on her history and physical. Regarding her right upper quadrant abdominal pain, feel she has more biliary colic. I do not feel she requires emergent gallbladder ultrasound currently. I will obtain a CBC, CMP, and lipase to make sure there is no elevation. Chest x-ray in 1 view will be obtained to rule out pneumonia and pneumothorax as a cause of her shortness of breath. EKG was obtained and interpreted by myself independently as sinus tachycardia with PACs at [address] changes. No STEMI. I reviewed her laboratory work and she has a leukocytosis of 20 with neutrophils 89.5, hemoglobin normal at 14.2, hematocrit 43.2. Sodium was slightly low at 131, potassium normal at 4.1 with chloride 100, normal BUN of 12 and creatinine normal at 0.59. High-sensitivity troponin is 12. I do not feel that she is having ACS. Additionally her BNP is normal so I do not think that she has a CHF exacerbation. Chest x-ray in 1 view interpreted by myself independently shows no pneumonia, no acute process. I reviewed the radiology report which confirms my independent interpretation. As she had leukocytosis and was mildly tachycardic I did add a lactic acid which was normal. Her LFTs are also normal although total bili is slightly high at 1.1. I have very low suspicion for acute cholecystitis as she is not febrile and she does not have tenderness in the right upper quadrant, additionally she does not have jaundice. I do not feel that she needs an ultrasound. I did review her inpatient stay, and Dr. Hughes with surgery had been consulted. She is supposed to follow-up with him next week. Additionally, I reviewed her urinalysis and she has 10-25 WBCs. Urine culture is currently pending. I will treat her as cystitis with Keflex giving her first dose here and a prescription written for the remainder of the week. At this point in time, she would like to be discharged home. I discussed observation with her, and she declined. I feel she can be discharged to follow-up with her numerous physicians including pulmonology, primary care, and general surgery. Should she develop fever, increased pain, new or worsening symptoms, she will return to the emergency department. Disposition is discharged home in stable condition. History & Record Review Discussion w/independent historian: Patient and Family Additional record(s) reviewed:: Prior inpatient record and Prior labs Lab Data Attestation: I reviewed the patient's lab results. Labs: Laboratory Results - last 24 hr 12/12/23 12/12/23 15:25 16:15 WBC 20.0 H RBC 4.71 Hgb 14.2 Hct 43.2 MCV 91.7 MCH 30.1 MCHC 32.9 RDW Std Deviation 47.5 H RDW Coeff of Prerna 14.1 Plt Count 177 MPV 10.6 Immature Gran % (Auto) 0.700 Neut % (Auto) 89.5 H Lymph % (Auto) 4.3 L [place] % (Auto) 4.4 Eos % (Auto) 1.0 Baso % (Auto) 0.1 Absolute Neuts (auto) 17.9 H Absolute Lymphs (auto) 0.86 Nucleated RBC % 0 Sodium 131 L Potassium 4.1 Chloride 100 Carbon Dioxide 25.0 Anion Gap 6 BUN 12 Creatinine 0.59 Estim Creat Clear Calc 48.43 Est GFR (MDRD) Af Amer 126 Est GFR (MDRD) Non-Af 104 BUN/Creatinine Ratio 20.4 H Glucose 280 H Lactic Acid 1.6 Calcium 8.2 L Total Bilirubin 1.10 H AST 28 ALT 23 Alkaline Phosphatase 54 Troponin I High Sens 12 B-Natriuretic Peptide 19.4 Total Protein 5.7 L Albumin 2.5 L Globulin 3.2 Albumin/Globulin Ratio 0.8 L Lipase 41 Urine Color Yellow Urine Clarity Sl Cloudy Urine pH 6.0 Ur Specific [place] 1.015 Urine Protein 30 H Urine Glucose (UA) 1000 H Urine Ketones 15 H Urine Occult Blood 10 H Urine Nitrite Negative Urine Bilirubin 1 H Urine Urobilinogen 1 H Ur Leukocyte Esterase 100 H Urine RBC 0-5 SEEN Urine WBC 10-25 SEEN Ur Squamous Epith Cells 0-5 SEEN Urine Bacteria RARE Urine Mucus 1+ Radiography Diagnostic Testing: Clinical Impression(s) from Imaging Studies Chest X-Ray 12/12/23 15:35 IMPRESSION: Hyperinflation. Stable mild increased markings at the lung bases suggestive of linear scarring. Electronically Signed: Nghia Atkins MD at 15:47 EDT Reading Location ID and State: [facility] / [place] , Service support , Discharge Plan Triage Chief Complaint: Shortness of Breath Other Complaint: Weakness ED Provider: Addi Epperson Dx/Rx/DC Orders Clinical Impression: SOB (shortness of breath), Generalized weakness, UTI (urinary tract infection) Instructions: ED COPD Flare, ED Dyspnea, ED Cystitis Female Adult, ED Weakness (Uncertain Cause) Prescriptions: New cephalexin 500 mg capsule 500 mg PO Q12 Qty: 14 0RF No Action diltiazem HCl 120 mg capsule,extended release 24 hr 120 mg PO QDAY Trelegy Ellipta 200-62.5-25 mcg blister with device 1 inh inhalation DAILY Qty: 60 6RF (DME) mucus clearing device Device See Rx Instructions .ROUTE Rx Instructions: As directed atorvastatin 20 mg tablet 20 mg PO DAILY Patient Comments: Take 1 tablet by mouth once daily. For cholesterol. multivitamin Tablet 1 tab PO DAILY clobetasol 0.05 % cream 1 applic TOPICAL BID PRN (Reason: Rash) Patient Comments: Apply to affected area twice daily for 2 days. As needed albuterol sulfate 90 mcg/actuation HFA aerosol inhaler 2 puff INHALATION Q4H PRN (Reason: SOB) Patient Comments: Inhale 2 Puffs as instructed every 4 hours as needed for wheezing/shortness of breath. metformin 1,000 mg tablet 1,000 mg PO BID albuterol sulfate 2.5 mg /3 mL (0.083 %) solution for nebulization 2.5 mg inhalation Q4H PRN PRN (Reason: wheezing) sucralfate 1 gram Tablet 1 g PO 1HR_ACHS 30 Days Qty: 90 0RF prednisone 10 mg tablet 10 mg PO DAILY Qty: 30 0RF Rx Instructions: 40 mg for 3 days 30 mg for 3 days, 20 mg for 3 days,and 10 mg for 3 days dextromethorphan-guaifenesin [Mucinex DM] 60-1,200 mg tablet extended release 12 hr 1 tab PO BID 5 Days Qty: 10 0RF pantoprazole [Protonix] 40 mg tablet,delayed release (DR/EC) 40 mg PO BID 30 Days Qty: 60 1RF Primary Care Provider: Higinio Salazar Referrals: Higinio Salazar MD [Primary Care Provider] - 3-5 Days if not improving Activity Restrictions/Additional Instructions: Follow-up with Dr. Hughes as scheduled, as well as pulmonology, and your primary care provider. Take antibiotics as directed. Return with sustained high fever, increased pain, difficulty breathing, new or worsening symptoms. Disposition Disposition: Home, Self Care
--- NOTE | 2023-12-12 15:35 | RAD_ITS ---
STUDY: X-RAY CHEST REASON FOR EXAM: Female, 83 years old. Shortness of Breath TECHNIQUE: Single AP portable view of the chest. COMPARISON: Comparison is made with prior study November 29, 2023. FINDINGS: EKG electrodes are seen. Hyperinflation. Stable minimal increased linear markings at the lung bases suggestive of linear scarring. There is no demonstrated pleural abnormality. Normal size heart. Normal mediastinum and north. Normal visualized pulmonary arteries. Normal visualized aortic arch and descending thoracic aorta. There is a dextroscoliosis of the thoracic spine. Normal visualized ribs, clavicles, and shoulders. There is no demonstrated abnormality of the visualized soft tissue structures of the upper abdomen. RAD/Chest 1 View (Portable) IMPRESSION: Hyperinflation. Stable mild increased markings at the lung bases suggestive of linear scarring. Electronically Signed: Nghia Atkins MD at 15:47 EDT ,
[2023-12-12 15:47] LABS: Color, Urine Yellow (Yellow); Glucose, Dipstick 1000 mg/dl (Normal); Ketone-Dipstick 15 mg/dl (Negative); Leukocyte Esterase-Dipstick 100 /ul (Negative); Nitrite-Dipstick Negative (Negative); Occult Blood-Urine 10 /ul (Negative); Protein-Dipstick 30 mg/dl (Negative); Specific Gravity, Urine 1.015 (1.002-1.030); Urine Urobilinogen 1 mg/dl (Normal)
[2023-12-12 15:48] LABS: Absolute Lymphocyte Count 0.86 X10^3/uL (0.83-4.51); Absolute Neutrophil Count 17.9 X10^3/uL (2.0-7.7); Basophil# 0.03 X10^3/uL; Basophil% 0.1 % (0-1); Hematocrit 43.2 % (37-47); Hemoglobin 14.2 g/dL (12.0-15.0); Lymphocyte # 0.86 X10^3/ul (0.83-4.51); Lymphocyte % 4.3 % (19-41); Mean Corp Hgb Conc 32.9 g/dL (32-36); Mean Corpuscular Hgb 30.1 pg (27.0-32.0); Mean Corpuscular Volume 91.7 fL (81-99); Mean Platelet Vol. 10.6 fl (6.2-12.0); Monocyte# 0.88 X10^3/uL; Monocyte% 4.4 % (0-10); NRBC Flagged by Analyzer 0 % (0-5); Neutrophil # 17.93 X10^3/uL (2.7-7.7); Neutrophil % 89.5 % (47-70); Platelet Count 177 K/mm3 (150-450); RBC Distribution Width CV 14.1 % (11.6-14.6); RBC Distribution Width SD 47.5 fl (35.1-43.9); Red Blood Count 4.71 M/mm3 (4.2-5.4); Urine Bilirubin Dipstick 1 mg/dL (Negative); Urine Clarity Sl Cloudy (Clear)
[2023-12-12 15:54] VITALS: BP 100/62; PULSE 106; RESP 18; TEMP 36.7; O2SAT 98
[2023-12-12 15:57] LABS: Red Blood Cells-Urine 0-5 SEEN /hpf (0-5); Squamous Epithelial Cells - UA 0-5 SEEN /hpf (5-10); White Blood Cells 10-25 SEEN /hpf (0-5)
[2023-12-12 15:58] LABS: Bacteria RARE /hpf (None Seen); Mucous, Urine 1+ /hpf (<or=2+)
[2023-12-12 16:00] VITALS: BP 117/62; PULSE 103; RESP 22; TEMP 37; O2SAT 93
[2023-12-12 16:14] LABS: ALB/GLOB Ratio 0.8 RATIO (0.9-2.4); AST(SGOT) 28 U/L (15-37); Alanine Aminotransfer ALT/SGPT 23 U/L (13-56); Albumin, Serum 2.5 g/dL (3.2-5.0); Alkaline Phosphatase 54 U/L (45-117); Anion Gap 6 (5-15); BUN 12 mg/dL (7-18); BUN/Creat Ratio 20.4 RATIO (10-20); Calcium,Total 8.2 mg/dL (8.5-10.1); Chloride 100 mmol/L (98-107); Creatinine, Serum 0.59 mg/dL (0.55-1.02); EST Glomerular Filtration Rate 104 mL/min (>60); Est Glom Filt Rate - Afr Amer 126 mL/min (>60); Estimated Creatinine Clearance 48.43 ml/min; Globulin 3.2 g/dL (2.2-4.2); Glucose 280 mg/dL (74-106); Lipase 41 U/L (13-75); Potassium 4.1 mmol/L (3.5-5.1); Protein, Total 5.7 g/dL (6.4-8.2); Sodium Level 131 mmol/L (136-145); Troponin-I HS 12 pg/mL (3.0-54.0)
[2023-12-12 16:18] LABS: BNP,B-Type NATRIURETIC PEPTIDE 19.4 pg/mL (0-100)
[2023-12-12 16:55] LABS: Lactic Acid 1.6 mmol/L (0.4-1.9)
[2023-12-12 17:00] VITALS: BP 120/63; PULSE 102; RESP 20; TEMP 37.2; O2SAT 93
[2023-12-12] MEDS: Cephalexin 250 MG Capsule 500 MG PO (17:20)
[2023-12-12 17:21] VITALS: BP 122/78; PULSE 102; RESP 20; TEMP 37.2; O2SAT 95
== END 2023-12-12 17:22 | disposition home or self-care (01) ==
PROVIDERS: Emergency Provider Emergency Medicine; PCP Family Medicine; Visit Provider Emergency Medicine
DX: R06.02 Shortness of breath (principal); J44.9 Chronic obstructive pulmonary disease, unspecified; E11.9 Type 2 diabetes mellitus without complications; R53.1 Weakness; N39.0 Urinary tract infection, site not specified; Z87.891 Personal history of nicotine dependence
CPT/HCPCS: 71045; 80053; 81001; 83605; 83690; 83880; 84484; 85025; 87040; 93005; 99285; J7040; A4216